=== PATIENT | male | born 1965 | race African-American/Black ===

== ENCOUNTER 2018-11-08 15:25 | Emergency (ER) | payer OTHER ==
[~2018-11-08] VITALS: Wt 97.1 kg
[~2018-11-08 15:25] MED LIST: CYCL5TAB PO; HYDR-3498 PO; IBUP-1542 PO
[2018-11-08 15:28] VITALS: BP 137/85; PULSE 70; RESP 19
[2018-11-08] MEDS ORDERED: DEXT1DRO6 OPHTHALMIC (16:38)
--- NOTE | 2018-11-08 18:31 | ERD ---
ER Documentation Chief Complaint Chief Complaint bib self, cc: right eye pain / pressure x 3 days, no trauma HPI 53-year-old male presents for right eye pain and pressure sensation times 3 days. Denies any trauma. No prior similar symptoms. He states his vision is intact. He does have a history of astigmatism and wears glasses. Denies any fevers or chills. ROS All systems reviewed and are negative except as per history of present illness. Medications Home Meds Active Scripts Dextran 70/Hypromellose (Artificial Tears) 1 Each Droperette, 1 EACH OPHTHALMIC TID PRN for irrigation, #1 BOTTLE Prov:DUEÑASHONORIO 11/08/18 Ibuprofen* (Motrin*) 600 Mg Tab, 600 MG PO Q6, #20 TAB Prov:MARIA C WATERMAN PA-C 03/23/16 Ibuprofen* (Ibuprofen*) 600 Mg Tablet, 600 MG PO Q6H PRN for PAIN, #30 TAB Prov:LLOYD HOWARD BONE CHAR KILN TENDER 06/21/15 Hydrocodone Bit-Acetaminophen* (Garner*) 5-325 Mg Tab, 1 TAB PO Q4H PRN for SEVERE PAIN LEVEL 7-10, #30 TAB Prov:LLOYD HOWARD BONE CHAR KILN TENDER 06/21/15 Cyclobenzaprine Hcl* (Cyclobenzaprine Hcl*) 5 Mg Tablet, 5 MG PO Q8H PRN for MUSCLE SPASMS, #21 TAB Prov:LLOYD HOWARD BONE CHAR KILN TENDER 06/21/15 Allergies Allergies: Coded Allergies: No Known Allergy (Unverified , 03/22/16) PMhx/Soc History of Surgery: No Anesthesia Reaction: No Hx Neurological Disorder: No Hx Respiratory Disorders: No Hx Cardiac Disorders: No Hx Psychiatric Problems: No Hx Miscellaneous Medical Probl: No Hx Alcohol Use: No Hx Substance Use: No Hx Tobacco Use: No Smoking Status: Never smoker Physical Exam Vitals Vital Signs Date Temp Pulse Resp B/P (MAP) Pulse Ox O2 O2 Flow FiO2 Time Delivery Rate 11/08/18 98.1 70 19 137/85 100 15:28 (102) Physical Exam Const: No acute distress Head: Atraumatic Eyes: Normal Conjunctiva, right eye lateral side small and shallow tissue noted ENT: Normal External Ears, Nose and Mouth. Neck: Full range of motion. No meningismus. Resp: Clear to auscultation bilaterally Cardio: Regular rate and rhythm, no murmurs Neur: Awake and alert Psych: Normal Mood and Affect Procedures/MDM Medical Decision Making: Differential diagnosis includes but not limited to pterygium, conjunctivitis, uveitis, iritis, glaucoma Patient appeared well on physical exam. Examination of the neck consistent with a pterygium. Patient given prescription for artificial tears. Advising you to follow with ophthalmology outpatient if symptoms do not resolve. Patient advised to follow up with PCP in 1-2 days. Patient advised to return to ED for new or worsening symptoms. Patient stable on discharge from the ED. Disclaimer: Inadvertent spelling and grammatical errors are likely due to [employer]/dictation software use and do not reflect on the overall quality of patient care. Also, please note that the electronic time recorded on this note does not necessarily reflect the actual time of the patient encounter. Departure Diagnosis: Primary Impression: Pterygium eye Condition: Fair Patient Instructions: Pterygium Referrals: [facility] YOU HAVE RECEIVED A MEDICAL SCREENING EXAM AND THE RESULTS INDICATE THAT YOU DO NOT HAVE A CONDITION THAT REQUIRES URGENT TREATMENT IN THE EMERGENCY DEPARTMENT. FURTHER EVALUATION AND TREATMENT OF YOUR CONDITION CAN WAIT UNTIL YOU ARE SEEN IN YOUR DOCTORS OFFICE WITHIN THE NEXT 1-2 DAYS. IT IS YOUR RESPONSIBILITY TO MAKE AN APPOINTMENT FOR FOLOW-UP CARE. IF YOU HAVE A PRIMARY DOCTOR --you should call your primary doctor and schedule an appointment IF YOU DO NOT HAVE A PRIMARY DOCTOR YOU CAN CALL OUR PHYSICIAN REFERRAL HOTLINE AT IF YOU CAN NOT AFFORD TO SEE A PHYSICIAN YOU CAN CHOSE FROM THE FOLLOWING [facility] [address] [facility] [address] [facility] [address] [facility]. [facility] [address] [facility] [address] [facility]. [facility]. [address] Additional Instructions: Call your primary care doctor TOMORROW for an appointment during the next 1-2 days.See the doctor sooner or return here if your condition worsens before your appointment time. HONORIO DUEÑAS DO Nov 08, 2018 18:31
== END 2018-11-08 17:15 | disposition home or self-care (01) ==
LOC: FTE 15:25
DX: H11.001 Unspecified pterygium of right eye (principal)
CPT/HCPCS: 99282

== ENCOUNTER 2018-12-27 23:22 | Emergency (ER) | payer OTHER ==
[~2018-12-27] VITALS: Ht 175.3 cm; Wt 74.5 kg
[~2018-12-27 23:22] MED LIST changes: +DEXT1DRO6 OPHTHALMIC
[2018-12-27 23:41] VITALS: Ht 175.3 cm; Wt 74.5 kg
[2018-12-28] MEDS ORDERED: ALBUTEROL 0.083% (NEB) 2.5 MG/3 ML AMP NEB STA (00:05)
--- NOTE | 2018-12-28 02:05 | ERD ---
ER Documentation Chief Complaint Chief Complaint SOB X TODAY HPI This is a 53-year-old male who presents to the ER for evaluation of shortness of breath. The patient states that he feels like it is hard for him to take a deep breath in. The patient denies any chest pain he denies any heart palpitations. He states that he is in the middle of getting a workup for headaches and double vision. The patient states that he does have an MRI which he got at this hospital which was normal. The patient denies any fevers or chills or nausea or vomiting. ROS All systems reviewed and are negative except as per history of present illness. Medications Home Meds Active Scripts Dextran 70/Hypromellose (Artificial Tears) 1 Each Droperette, 1 EACH OPHTHALMIC TID PRN for irrigation, #1 BOTTLE Prov:HONORIO DUEÑAS DO 11/08/18 Ibuprofen* (Motrin*) 600 Mg Tab, 600 MG PO Q6, #20 TAB Prov:MARIA C WATERMAN PA-C 03/23/16 Ibuprofen* (Ibuprofen*) 600 Mg Tablet, 600 MG PO Q6H PRN for PAIN, #30 TAB Prov:LLOYD HOWARD NP 06/21/15 Hydrocodone Bit-Acetaminophen* ([place]elo*) 5-325 Mg Tab, 1 TAB PO Q4H PRN for SEVERE PAIN LEVEL 7-10, #30 TAB Prov:LLOYD HOWARD NP 06/21/15 Cyclobenzaprine Hcl* (Cyclobenzaprine Hcl*) 5 Mg Tablet, 5 MG PO Q8H PRN for MUSCLE SPASMS, #21 TAB Prov:LLOYD HOWARD NP 06/21/15 Allergies Allergies: Coded Allergies: No Known Allergy (Unverified , 11/21/18) PMhx/Soc Medical and Surgical Hx: pt denies Medical Hx, pt denies Surgical Hx History of Surgery: No Anesthesia Reaction: No Hx Neurological Disorder: No Hx Respiratory Disorders: No Hx Cardiac Disorders: No Hx Psychiatric Problems: No Hx Miscellaneous Medical Probl: No Hx Alcohol Use: No Hx Substance Use: No Hx Tobacco Use: No Smoking Status: Never smoker Physical Exam Vitals Vital Signs Date Temp Pulse Resp B/P (MAP) Pulse Ox O2 O2 Flow FiO2 Time Delivery Rate 12/28/18 63 16 100 21 00:21 12/27/18 97.2 71 22 141/100 98 23:41 (114) Physical Exam INITIAL VITAL SIGNS: Reviewed by me GENERAL: The patient is well developed and appropriate for usual state of health in no apparent distress HEENT: Pupils equal, round, and reactive to light. EOMI. There is no scleral icterus. NECK: C-spine is soft and supple, there is no meningismus. There is no cervical lymphadenopathy. LUNGS: Clear to auscultation bilaterally. There are no rales, wheezes or rhonchi. HEART: Regular rate and rhythm, no murmurs, clicks, rubs or gallops. ABDOMEN: Soft, non-tender, non-distended. There are bowel sounds in all four quadrants. No rebound or guarding. EXTREMITIES: There is no peripheral cyanosis or edema. No focal swelling or erythema. NEUROLOGICAL: The patient moves all four extremities with 5/5 strength. Cranial nerves II - XII are intact. Normal gait. Alert and oriented SKIN: There is no apparent rash or petechiae. HEME/LYMPHATIC: There is no evidence of excessive bruising or lymphedema. PSYCHIATRIC: The patient appears anxious Result Diagram: 12/28/18 0002 12/28/18 0002 Results 24 hrs Laboratory Tests Test 12/28/18 00:02 White Blood Count 3.2 10^3/ul Red Blood Count 4.44 10^6/ul Hemoglobin 13.6 g/dl Hematocrit 39.4 % Mean Corpuscular Volume 88.7 fl Mean Corpuscular Hemoglobin 30.6 pg Mean Corpuscular Hemoglobin Concent 34.5 g/dl Red Cell Distribution Width 12.0 % Platelet Count 226 10^3/UL Mean Platelet Volume 10.5 fl Immature Granulocytes % 0.000 % Neutrophils % 31.2 % Lymphocytes % 55.8 % Monocytes % 9.3 % Eosinophils % 3.1 % Basophils % 0.6 % Nucleated Red Blood Cells % 0.0 /100WBC Immature Granulocytes # 0.000 10^3/ul Neutrophils # 1.0 10^3/ul Lymphocytes # 1.8 10^3/ul Monocytes # 0.3 10^3/ul Eosinophils # 0.1 10^3/ul Basophils # 0.0 10^3/ul Nucleated Red Blood Cells # 0.0 10^3/ul Sodium Level 141 mmol/L Potassium Level 3.6 mmol/L Chloride Level 101 mmol/L Carbon Dioxide Level 31 mmol/L Anion Gap 9 Blood Urea Nitrogen 16 mg/dl Creatinine 0.91 mg/dl Est Glomerular Filtrat Rate mL/min > 60 mL/min Glucose Level 89 mg/dl Calcium Level 9.4 mg/dl Troponin I 0.016 ng/ml B-Type Natriuretic Peptide 30 PG/ML Current Medications Medications Dose Sig/Sergei Start Time Status Last (Trade) Ordered Route PRN Stop Time Admin Dose Reason Admin Albuterol 5 mg ONCE STAT 12/28/18 DC 12/28/18 (Proventil NEB 00:05 00:21 0.083% (Neb)) 12/28/18 00:06 Procedures/MDM Chest X-ray 1V Interpreted by me: Soft Tissue: No acute abnormalities Bones: No acute abnormalities Mediastinum/Cardiac Silhouette/Lungs: Left lung granuloma EKG: Rate/Rhythm: [Normal Sinus Rhythm] QRS, ST, T-waves: [No changes consistent w/ acute ischemia] Impression: [No evidence of ischemia or arrhythmia] This 53-year-old male presents to the ER for evaluation of shortness of breath. On my exam the patient did appear anxious however his pulse ox is 100%. The patient was placed on a monitor. Lab work was obtained and EKG was obtained. His EKG shows normal sinus rhythm with no signs of ST elevation. Lab work is normal including a troponin. Chest x-ray does show a left lung granuloma. The patient was given a breathing treatment and on my reevaluation states he is feeling much better. The patient could have a component of anxiety to his symptoms and will be discharged at this time with strict return precautions. The patient does feel comfortable with her plan of care and I did advise him to continue following up with neurologist as an outpatient for his workup of diplopia. Departure Diagnosis: Primary Impression: Shortness of breath Additional Impression: Anxiety Condition: Stable ARLINEILIR HARRISMARIBETH BOYER Dec 28, 2018 02:05
[2018-12-28 02:50] VITALS: BP 141/100; PULSE 76; RESP 18
== END 2018-12-28 02:50 | disposition home or self-care (01) ==
LOC: E/R 23:22
DX: R06.02 Shortness of breath (principal); F41.9 Anxiety disorder, unspecified
CPT/HCPCS: 36415; 71045; 80048; 83880; 84484; 85025; 93005; 94664; Z7502; Z7610

== ENCOUNTER 2019-01-19 17:24 | Inpatient (IN) | payer OTHER ==
[~2019-01-19] VITALS: Ht 175.3 cm; Wt 64.4 kg
[~2019-01-19 17:24] MED LIST changes: -CYCL5TAB PO; -HYDR-3498 PO; -IBUP-1542 PO
[2019-01-19] MEDS ORDERED: SOD CHLORIDE 0.9% 1,000 ML IV STA (17:44)
[2019-01-19] MEDS ORDERED: PYRIDOSTIGMINE 10 MG IV ONE (18:00)
[2019-01-19] MEDS ORDERED: IMMUNE GLOBULIN (HUMAN) 6 GM INJ IV ONE (18:00)
[2019-01-19] MEDS ORDERED: LISI-313 PO (18:00)
[2019-01-19] MEDS ORDERED: PRED5TAB PO (18:02)
[2019-01-19] MEDS ORDERED: PRED20TA PO (18:02)
[2019-01-19] MEDS ORDERED: PYRI60TA9 PO (18:03)
[2019-01-19] MEDS ORDERED: LEVO112T57 PO (18:03)
[2019-01-19] MEDS ORDERED: AMLO-147 PO (18:04)
--- NOTE | 2019-01-19 18:46 | ERD ---
ER Documentation Chief Complaint Chief Complaint unable to swallow/eat for 2 days HX of Myasthenai HPI This is a 53-year-old male with a history of myasthenia gravis is been complaining of swallowing problems for the past several days is progressively getting worse. He is on day 3 of 5 IVIG infusions at home. He is also taking p irate's stick mean 60 mg. He says he is unable to swallow anything for the past 2 days and is having some decreased urine output. He has no respiratory difficulty or GI symptoms he feels generally weak and malaise. No headache no fever denies any dysuria. He is a relatively poor historian ROS All systems reviewed and are negative except as per history of present illness. Medications Home Meds Reported Medications Amlodipine Besylate* (Amlodipine Besylate*) 10 Mg Tablet, 10 MG PO DAILY, #30 TAB 01/19/19 Levothyroxine Sodium* (Levothyroxine Sodium*) 112 Mcg Tablet, 112 MCG PO BEFORE BREAKFAST, #30 TAB 01/19/19 Pyridostigmine Medusa* (Pyridostigmine Medusa*) 60 Mg Tablet, 90 MG PO QID, TAB 01/19/19 Prednisone* (Prednisone*) 20 Mg Tab, 20 MG PO DAILY, TAB 01/19/19 Prednisone* (Prednisone*) 5 Mg Tab, 5 MG PO DAILY, TAB PLEASE SEE ATTACHED FOR DETAILED DIRECTIONS 01/19/19 Lisinopril* (Lisinopril*) 5 Mg Tablet, 5 MG PO DAILY, #30 TAB 01/19/19 Discontinued Scripts Dextran 70/Hypromellose (Artificial Tears) 1 Each Droperette, 1 EACH OPHTHALMIC TID PRN for irrigation, #1 BOTTLE Prov:HONORIO DUEÑAS DO 11/08/18 Allergies Allergies: Coded Allergies: No Known Allergy (Unverified , 01/19/19) PMhx/Soc History of Surgery: No Anesthesia Reaction: No Hx Neurological Disorder: No Hx Respiratory Disorders: No Hx Cardiac Disorders: No Hx Psychiatric Problems: No Hx Miscellaneous Medical Probl: Yes (Myasthenia Gravis) Hx Alcohol Use: No Hx Substance Use: No Hx Tobacco Use: No Smoking Status: Never smoker FmHx Family History: No coronary disease Physical Exam Vitals Vital Signs Date Temp Pulse Resp B/P (MAP) Pulse Ox O2 O2 Flow FiO2 Time Delivery Rate 01/19/19 Nasal 2 18:00 Cannula 01/19/19 98.2 62 18 144/89 97 17:48 (107) 01/19/19 98.2 62 18 144/89 97 17:38 (107) Physical Exam Const: Well-developed, well-nourished, the patient is unable to swallow his saliva so he is spitting into a bag Head: Atraumatic, normocephalic Eyes: Normal Conjunctiva, PERRLA, EOMI, normal sclera, no nystagmus ENT: Normal External Ears, Nose and Mouth, moist mucus membranes. Neck: Full range of motion. No meningismus, no lymphadenopathy. Resp: Clear to auscultation bilaterally, no wheezing, rhonchi, rales Cardio: Regular rate and rhythm, no murmurs, S1 S2 present Abd: Soft, non tender x 4, non distended. Normal bowel sounds, no guarding or rebound, no pulsitile abdominal masses or bruits Skin: No petechiae or rashes, no ecchymosis , no maculopapular rash Back: No midline or flank tenderness Ext: No cyanosis, or edema, FROM x 4, normal inspection, neur ovascularly intact x 4 Neur: Awake and alert, STR 3-4/5 x 4, sensation intact x 4, no focal fi ndings, cerebellum intact Psych: Normal Mood and Affect Result Diagram: 01/19/19182101/19/191821 Results 24 hrs Laboratory Tests Test 01/19/19 18:22 White Blood Count 7.5 10^3/ul Red Blood Count 4.09 10^6/ul Hemoglobin 12.5 g/dl Hematocrit 36.2 % Mean Corpuscular Volume 88.5 fl Mean Corpuscular Hemoglobin 30.6 pg Mean Corpuscular Hemoglobin Concent 34.5 g/dl Red Cell Distribution Width 12.0 % Platelet Count 295 10^3/UL Mean Platelet Volume 10.0 fl Immature Granulocytes % 0.500 % Neutrophils % 73.8 % Lymphocytes % 19.3 % Monocytes % 6.2 % Eosinophils % 0.1 % Basophils % 0.1 % Nucleated Red Blood Cells % 0.0 /100WBC Immature Granulocytes # 0.040 10^3/ul Neutrophils # 5.5 10^3/ul Lymphocytes # 1.4 10^3/ul Monocytes # 0.5 10^3/ul Eosinophils # 0.0 10^3/ul Basophils # 0.0 10^3/ul Nucleated Red Blood Cells # 0.0 10^3/ul Sodium Level 141 mmol/L Potassium Level 3.7 mmol/L Chloride Level 104 mmol/L Carbon Dioxide Level 31 mmol/L Anion Gap 6 Blood Urea Nitrogen 27 mg/dl Creatinine 0.91 mg/dl Est Glomerular Filtrat Rate mL/min > 60 mL/min Glucose Level 129 mg/dl Calcium Level 9.9 mg/dl Total Bilirubin 0.7 mg/dl Direct Bilirubin 0.00 mg/dl Indirect Bilirubin 0.7 mg/dl Aspartate Amino Transf (AST/SGOT) 22 IU/L Alanine Aminotransferase (ALT/SGPT) 12 IU/L Alkaline Phosphatase 45 IU/L Total Protein 9.8 g/dl Albumin 4.4 g/dl Globulin 5.40 g/dl Albumin/Globulin Ratio 0.81 Current Medications Medications Dose Sig/Sergei Start Time Status Last (Trade) Ordered Route PRN Stop Time Admin Dose Reason Admin Sodium 1,000 ml @ Q1H STAT 01/19/19 DC 01/19/19 Chloride 1,000 mls/hr IV 17:44 01/19/19 18:27 18:43 Immune 150 gm NOW ONCE 01/19/19 DC Globulin IV 18:00 01/19/19 (Carimune Nf) 18:01 10 mg ONCE ONCE 01/19/19 DC Pyridostigmin IV 18:00 01/19/19 e Medusa 18:01 (Regonol) 60 mg ONCE ONCE 01/19/19 DC Pyridostigmin PO 19:00 01/19/19 e Medusa 19:01 (Mestinon) Procedures/MDM The patient started getting IVIG infusions over the past 3 days is continuing to worsen. For dose of pyridostigmine 60 mg p.o., do not feel he is having a cholinergic crisis she is not having any other other symptoms. The hospital only has 90 mg of IVIG in house. We do not have any IV pyridostigmine. Patient's not having any respiratory difficulty but he is unable to drink anything and we will need to admit him for myasthenia gravis exacerbation, IV hydration. Patient will probably need a higher level of care I have paged our neurologists and waiting call back. We do not have IVIG or intravenous pyridostigmine the patient will need to be monitored closely for respiratory failure, we do have oral tablets of pyridostigmine bromide he cannot swallow them Patient: ADIED : 1965 Age: 53 Sex: M MR #: [id number] DOS: 01/19/19 1744 Ordering MD: CELE OSORIO DO Location: E/R Room/Bed: PROCEDURE: XR Chest. CLINICAL INDICATION: Chest Pain. TECHNIQUE: Single frontal view of the chest COMPARISON: None FINDINGS: Left lung calcified granuloma again seen and unchanged. No new focal pulmonary consolidation. The heart and mediastinum are within normal limits. There is no pleural effusion or pneumothorax. Bones and soft tissues are unremarkable. IMPRESSION: No acute cardiac or pulmonary findings. RPTAT:HCLE prakash Crockett Physician Date Time Electronically viewed and signed by prakash Crockett, Physician on 01/19/2019 19:03 cE/ CC: CELE OSORIO DO [id number] Departure Diagnosis: Primary Impression: Myasthenia gravis with exacerbation Additional Impression: Swallowing disorder Condition: Fair CELE OSORIO DO Jan 19, 2019 18:46
[2019-01-19] MEDS ORDERED: PYRIDOSTIGMINE 60 MG TAB PO ONE (19:00)
--- NOTE | 2019-01-19 23:41 | EN ---
Date/Time of Note Date/Time of Note DATE: 01/19/19 TIME: 23:39 ER Progress Note Sign Out Note: Dr. Corea relayed current data and ongoing care with me. Time: Time of this note Observation time: 4 hours Diagnosis: Myasthenia gravis exacerbation Pending: Patient is awaiting transfer to another facility for higher level of care. The appropriate medications including IVIG and IV physostigmine are not available here. Patient cannot take any medications orally. I was told by Dr. Corea that the patient is stable and will need to be transferred for higher level of care. There were no events during my shift. Patient has not been accepted yet. Signed out to oncoming ED provider. GENA GRAYSON MD Jan 19, 2019 23:41
[2019-01-20] VITALS (24 sets, daily range): BP systolic 132–158; BP diastolic 63–112; PULSE 55–88; RESP 12–23; Ht 175.3 cm; Wt 64.4 kg
[2019-01-20] MEDS ORDERED: DEXAMETHASONE 10 MG/ML 1 ML INJ IV ONE (02:30)
[2019-01-20] MEDS ORDERED: PYRIDOSTIGMINE 60 MG TAB PO SCH ×3 (02:30→13:00)
[2019-01-20] MEDS ORDERED: NACL 0.9% 3 ML SYG IV SCH (02:30)
[2019-01-20] MEDS ORDERED: GLYCOPYRROLATE 1 MG TAB PO SCH ×2 (03:00→09:00)
[2019-01-20] MEDS ORDERED: GLYCOPYRROLATE 0.4 MG INJ IV ONE (04:00)
[2019-01-20] MEDS ORDERED: HYOSCYAMINE 0.125 MG SUBL TAB PO ONE (04:00)
[2019-01-20] MEDS: SOD CHLORIDE 0.9% 1,000 ML IV SCH ×2 (04:02→17:13)
[2019-01-20] MEDS ORDERED: PYRIDOSTIGMINE 10 MG IV SCH (04:30)
[2019-01-20] MEDS ORDERED: PYRIDOSTIGMINE 10 MG IV ONE (09:00)
--- NOTE | 2019-01-20 09:17 | HP ---
Date/Time of Note Date/Time of Note DATE: 01/20/19 TIME: 08:53 Assessment/Plan VTE Prophylaxis Risk score (from Nsg)>0 risk: 3 SCD applied (from Ns): Yes Pharmacological prophylaxis: NA/contraindicated Pharm contraindication: low risk/ambulating Lines/Catheters IV Catheter Type (from Nrs): Peripheral IV Assessment/Plan Hospital Course This is a 52-year-old male who was recently admitted to the telemetry floor but is now going to the ICU floor for: #1 myasthenic crisis: Patient at the current time is reporting facial weakness and numbness, he also reports some bilateral upper and lower extremity weakness but he is able at the current time to read without any difficulty. He does report difficulty with swallowing and secretions. He is using a Yankauer at the current time for secretions. Patient originally was going to be transferred for higher level of care as the pharmacy did not have the adequate medications IVIG and pyridostigmine on formulary, however given that he was having a lengthy stay in the emergency department they admitted the patient and requested the pharmacy to obtain the medications. I did speak to the pharmacist myself and they are obtaining IVIG and IV pyridostigmine this a.m. Given that the patient's vital capacity was 800 and he was having weakness I did move him to the ICU for closer close airway monitoring as patient is high risk for requiring intubation. He did receive steroids in the ED. Goal right now is to start the patient on IVIG. Plasmapheresis is also an option. As he has been having difficulty swallowing he has not been taking his Mestinon. And he did receive Decadron IV in the ED. -Close monitoring in the ICU, airway management -Vital capacity every 4 hours, consideration for intubation when vital capacity is less than 15-20 mL/kg which the patient is already below. -IV Robinul for secretions, patient did receive this and it did help him he states -IVIG as soon as possible when it is available, plasmapheresis would also be another consideration -Withhold Mestinon once patient receives IVIG- -neurology consultation Dr. Garcia, pulmonology consultation -Avoid medications that may worsen the myasthenia crisis. #2 hypothyroidism: We will check TSH, will put an equivalent IV dose of levothyr oxine #3 hypertension: PRN hydralazine #4 DVT GI prophylaxis: SCDs, Protonix Further treatment strategy will be implemented as per the clinical course Result Diagram: 01/19/19182101/19/19 1822 Results 24hrs Laboratory Tests Test 01/19/19 18:22 White Blood Count 7.5 # Red Blood Count 4.09 L Hemoglobin 12.5 L Hematocrit 36.2 L Mean Corpuscular Volume 88.5 Mean Corpuscular Hemoglobin 30.6 Mean Corpuscular Hemoglobin Concent 34.5 Red Cell Distribution Width 12.0 Platelet Count 295 # Mean Platelet Volume 10.0 Immature Granulocytes % 0.500 H Neutrophils % 73.8 Lymphocytes % 19.3 Monocytes % 6.2 Eosinophils % 0.1 Basophils % 0.1 Nucleated Red Blood Cells % 0.0 Immature Granulocytes # 0.040 H Neutrophils # 5.5 Lymphocytes # 1.4 Monocytes # 0.5 Eosinophils # 0.0 Basophils # 0.0 Nucleated Red Blood Cells # 0.0 Sodium Level 141 Potassium Level 3.7 Chloride Level 104 Carbon Dioxide Level 31 Anion Gap 6 Blood Urea Nitrogen 27 H Creatinine 0.91 Est Glomerular Filtrat Rate mL/min > 60 Glucose Level 129 Calcium Level 9.9 Total Bilirubin 0.7 Direct Bilirubin 0.00 Indirect Bilirubin 0.7 Aspartate Amino Transf (AST/SGOT) 22 Alanine Aminotransferase (ALT/SGPT) 12 L Alkaline Phosphatase 45 Total Protein 9.8 H Albumin 4.4 Globulin 5.40 H Albumin/Globulin Ratio 0.81 HPI/ROS Admit Date/Time Admit Date/Time Jan 20, 2019 at 02:09 Hx of Present Illness Chief complaint: Difficulty swallowing for the last several days. This is a 53-year-old male with a history of myasthenia gravis is been complaining of swallowing problems for the past several days is progressively getting worse. He is on day 3 of 5 IVIG infusions at home. He is also taking Mestinon 60 mg. He says he is unable to swallow anything for the past 2 days and is having some decreased urine output. He has no respiratory difficulty or GI symptoms he feels generally weak and malaise. No headache no fever denies any dysuria. Patient did remain in the emergency department and was given steroids, he was unable to swallow Mestinon. The emergency department was attempting to transfer the patient to higher level of care where he could receive IVIG as well as Mestinon as our pharmacy did not have it in stock. Overnight I was contacted by the ED physician who stated that the pharmacy was going to obtain IVIG and Mestinon for us. The ED physician deemed the patient stable to go to the telemetry floor. Upon my examination of the patient at the bedside I did order a vital capacity test which did show a vital capacity of approximately 800. Due to his low vital capacity and his ongoing secretions and feelings of weakness I made the decision to take the patient emergently to the ICU for closer monitoring and airway management in the setting of possible need for intubation. Patient reports that he was diagnosed with myasthenia gravis approximately 1 month ago at [facility]. He reports that he does take IVIG through home health nurse apparently. Patient reports that he only has myasthenia gravis as medical problems however he does have other medications listed on his EMR. Patient likely does appear to be a poor historian. Allergies: NKDA Medications: See MIKAEL HENDERSON Const: As per HPI Eyes : No pain discharge or redness or change in visual acuity ENT: As per HPI Respiratory: No shortness of breath, cough, sputum, wheezing, or pleuritic pain Cardiovascular: No chest pain, palpitation, PND, or edema GI : no change in appetite, abdominal pain, nausea, vomiting, diarrhea, constipation, or change in the color his stool Genitourinary: No dysuria, hematuria, flank pain , discharge or CVA tenderness Musculoskeletal: As per HPI Skin: No rash, bruising or hives Neuro: As per HPI Endocrine: No polyuria, polydipsia, temperature intolerance Psych: No hallucination, depression, anxiety or suicidal ideation PMH/Family/Social Past Medical History Myasthenia gravis, hypertension, hypothyroidism Medications Current Medications Sodium Chloride 1,000 ml @ 70 mls/hr [id number] IV Last administered on 01/20/19at 04:02; Admin Dose 70 MLS/HR; Start 01/20/19 at 02:22; Stop 01/21/19 at 02:21 IV Flush (NS 3 ml) 3 ml PER PROTOCOL IV ; Start 01/20/19 at 02:30 Pyridostigmine Flushing (Regonol) 10 mg ONCE ONCE IV ; Start 01/20/19 at 09:00; Stop 01/20/19 at 09:01 Glycopyrrolate (Robinul) 0.2 mg QID PRN IV SECRETIONS; Start 01/20/19 at 09:00; Status UNV Coded Allergies: No Known Allergy (Unverified , 01/19/19) Past Surgical History Past Surgical Hx: no surgical history Family History Significant Family History: no pertinent family hx Social History Alcohol Use: none Smoking Status: Never smoker Drug Use: none Exam/Review of Systems Vital Signs Vitals Vital Signs Date Temp Pulse Resp B/P (MAP) Pulse Ox O2 O2 Flow FiO2 Time Delivery Rate 01/20/19 97.4 83 23 150/111 100 Room Air 08:15 (124) 01/19/19 2 18:00 Exam Exam General: Patient is currently sitting upright in bed, his speech does appear to be muffled, he is producing oral secretions for which she is suctioning himself HEENT: Atraumatic, normocephalic. The pupils are equal, round and reactive. Extraocular motor are intact Neck: Supple with full range of motion. No rigidity or meningismus Chest: Nontender Lungs: Clear to auscultation bilaterally no crackles rales or wheezing, diminished chest rise Heart: Normal S1-S2, Regular rhythm and rate. No murmur, S3, or S4 Abdomen: Soft , nontender, nondistended , bowel sounds are present. No guarding no rebound tenderness , No masses or organomegaly. No costovertebral temporal angle mass Extremities: Normal to inspection, no edema no cyanosis Neurologic: Alert and oriented x3, speech is normal but it does appear to be muffled secondary to weakness of his facial muscles, he does appear to have mild weakness of his bilateral upper and lower extremities, but he is able to lift up his Yankauer for secretions. Additional Comments PROCEDURE: XR Chest. CLINICAL INDICATION: Chest Pain. TECHNIQUE: Single frontal view of the chest COMPARISON: None FINDINGS: Left lung calcified granuloma again seen and unchanged. No new focal pulmonary consolidation. The heart and mediastinum are within normal limits. There is no pleural effusion or pneumothorax. Bones and soft tissues are unremarkable. IMPRESSION: No acute cardiac or pulmonary findings. RPTAT:HCLE prakash Crockett Physician Date Time Electronically viewed and signed by prakash Crockett Physician on 01/19/2019 19:03 cE/ CC: CELE OSORIO DO [id number] RICARDO SIMMONS Jan 20, 2019 09:12
--- NOTE | 2019-01-20 10:50 | PN ---
Date/Time of Note Date/Time of Note DATE: 01/20/19 TIME: 10:50 Objective Vitals Vital Signs Date Temp Pulse Resp B/P (MAP) Pulse Ox O2 O2 Flow FiO2 Time Delivery Rate 01/20/19 97.4 83 23 150/111 100 Room Air 08:15 (124) 01/19/19 2 18:00 Results Result Diagram: 01/19/19 1822 01/19/19 1822 Medications Medications Current Medications Sodium Chloride 1,000 ml @ 70 mls/hr [id number] IV Last administered on 01/20/19at 04:02; Admin Dose 70 MLS/HR; Start 01/20/19 at 02:22; Stop 01/21/19 at 02:21 IV Flush (NS 3 ml) 3 ml PER PROTOCOL IV ; Start 01/20/19 at 02:30 Glycopyrrolate (Robinul) 0.2 mg QID PRN IV SECRETIONS; Start 01/20/19 at 09:00 Levothyroxine Sodium (Synthroid Iv) 56 mcg DAILY IV ; Start 01/20/19 at 09:30 Famotidine (Pepcid Iv) 20 mg BID IV ; Start 01/20/19 at 10:30 VTE Prophylaxis Risk score (from [facility] [place])>0 risk: 3 SCD applied (from [facility] [place]): Yes Lines/Catheters IV Catheter Type: Ordonez in Place: No Assessment/Plan Hospital Course Subjective Patient feeling much better than when he first came in yesterday however still having some overall weakness Objective Physical exam General: Patient is laying in bed and answers questions appropriately Mentation: Patient is alert and oriented 4, Head: Normocephalic atraumatic Eyes: EOMI, pupils reactive to light Neck: Supple, nontender, midline Respiratory: Clear to auscultation bilaterally Cardiovascular: regular rate, no obvious murmurs Gastrointestinal: non-tender to palpation, bowel sounds heard. Neurological: Moves all extremities spontaneously, muscle strength is 5 out of 5 all extremities Skin: No new skin lesions Assessment and plan Myasthenic crisis -Drastic improvement of symptoms however patient still reporting waxing and waning of symptoms -Continue IVIG -Neurology consulted, discussed with neurology, will and they will assess the p atient's medications and restart appropriate ones, continue IVIG for now, no end date as of right now -Patient outpatient on steroids, Mestinon, CellCept, now off omeprazole due to interaction with CellCept, continue IV famotidine, will defer to neurology to restart medications. Hypothyroidism -Continue levothyroxine Hypertension -Treat as needed, restart home meds when able Disposition -Over 40 minutes of critical care time was spent on this ICU encounter -Speech therapy evaluation, okay to start clears if passes speech eval, however keep in ICU as patient could rapidly decompensated any moment. LORRAINE WATERMAN Jan 20, 2019 10:50
--- NOTE | 2019-01-20 11:07 | CONS ---
Assessment/Plan Assessment/Plan Assessment/Plan (Daily) Chest x-ray is totally clear. Assessment and recommendations; 1. Patient admitted for myasthenia crisis with interval improvement on current treatment regimen. 2. [facility]. Continue current supportive care. Consultation Date/Type/Reason Admit Date/Time Jan 20, 2019 at 02:09 Date of Consultation: Jan 20, 2019 Type of Consult Pulmonary/critical care Patient is a pleasant 53-year-old male who came into the hospital with complaints of weakness and shortness of breath. Patient does have history of myasthenia gravis diagnosed about a month ago patient also had low vital capacity and was admitted to ICU and started on immunoglobulin as well as pyridostigmine with significant improvement in symptoms. By the time I saw him, patient sitting in a chair at bedside and denies any shortness of breath, any coughing, wheezing, sputum production. Past medical history; 1. History of myasthenia gravis diagnosed recently about a month ago. No history of any thymectomy. 2. History of hypothyroidism and hypertension. Medications; reviewed. Allergies; none. Social history; noncontributory. Family history; noncontributory. Occupational history; patient is disabled. Review of systems; denies any headache, visual changes, seizures. Shortness of breath is improving. Complains of minimal chest congestion. Denies any abdominal pain, complains of mild dysphagia. Denies any nausea vomiting, any fever chills, any urinary symptoms. Any edema orthopnea. General exam; middle-aged male, awake alert, currently in no distress. Reason for Consultation H EENT exam; supple neck, no JVD. No lymphadenopathy. Midline trachea. No thyromegaly. Patient has fair dentition. No neck masses. Chest exam; diminished but clear breath sounds. S1-S2 audible, no murmurs. Regular rhythm. Abdomen exam; soft, nontender. No organomegaly. Bowel sounds audible. Extremity exam; no peripheral edema clubbing. ROLLER SKATER exam; no focal deficit. Date/Time of Note DATE: 01/20/19 TIME: 11:02 Past Medical History Home Meds Reported Medications Amlodipine Besylate* (Amlodipine Besylate*) 10 Mg Tablet, 10 MG PO DAILY, #30 TAB 01/19/19 Levothyroxine Sodium* (Levothyroxine Sodium*) 112 Mcg Tablet, 112 MCG PO BEFORE BREAKFAST, #30 TAB 01/19/19 Pyridostigmine [place]* (Pyridostigmine [place]*) 60 Mg Tablet, 90 MG PO QID, TAB 01/19/19 Prednisone* (Prednisone*) 20 Mg Tab, 20 MG PO DAILY, TAB 01/19/19 Prednisone* (Prednisone*) 5 Mg Tab, 5 MG PO DAILY, TAB PLEASE SEE ATTACHED FOR DETAILED DIRECTIONS 01/19/19 Lisinopril* (Lisinopril*) 5 Mg Tablet, 5 MG PO DAILY, #30 TAB 01/19/19 Discontinued Scripts Dextran 70/Hypromellose (Artificial Tears) 1 Each Droperette, 1 EACH OPHTHALMIC TID PRN for irrigation, #1 BOTTLE Prov:HONORIO DUEÑAS DO 11/08/18 Medications Current Medications Sodium Chloride 1,000 ml @ 70 mls/hr [id number] IV Last administered on 01/20/19at 04:02; Admin Dose 70 MLS/HR; Start 01/20/19 at 02:22; Stop 01/21/19 at 02:21 IV Flush (NS 3 ml) 3 ml PER PROTOCOL IV ; Start 01/20/19 at 02:30 Glycopyrrolate (Robinul) 0.2 mg QID PRN IV SECRETIONS; Start 01/20/19 at 09:00 Levothyroxine Sodium (Synthroid Iv) 56 mcg DAILY IV ; Start 01/20/19 at 09:30 Famotidine (Pepcid Iv) 20 mg BID IV ; Start 01/20/19 at 10:30 Allergies: Coded Allergies: No Known Allergy (Unverified , 01/19/19) Past Surgical History Past Surgical Hx: no surgical history Social History Alcohol Use: none Smoking Status: Never smoker Drug Use: none Exam/Review of Systems Exam Vitals Vital Signs Date Temp Pulse Resp B/P (MAP) Pulse Ox O2 O2 Flow FiO2 Time Delivery Rate 01/20/19 97.4 83 23 150/111 100 Room Air 08:15 (124) 01/19/19 2 18:00 Results Result Diagram: 01/19/19 1822 01/19/19 1822 Results 24hrs Laboratory Tests Test 01/19/19 18:22 01/20/19 09:37 White Blood Count 7.5 # Red Blood Count 4.09 L Hemoglobin 12.5 L Hematocrit 36.2 L Mean Corpuscular Volume 88.5 Mean Corpuscular Hemoglobin 30.6 Mean Corpuscular Hemoglobin Concent 34.5 Red Cell Distribution Width 12.0 Platelet Count 295 # Mean Platelet Volume 10.0 Immature Granulocytes % 0.500 H Neutrophils % 73.8 Lymphocytes % 19.3 Monocytes % 6.2 Eosinophils % 0.1 Basophils % 0.1 Nucleated Red Blood Cells % 0.0 Immature Granulocytes # 0.040 H Neutrophils # 5.5 Lymphocytes # 1.4 Monocytes # 0.5 Eosinophils # 0.0 Basophils # 0.0 Nucleated Red Blood Cells # 0.0 Sodium Level 141 Potassium Level 3.7 Chloride Level 104 Carbon Dioxide Level 31 Anion Gap 6 Blood Urea Nitrogen 27 H Creatinine 0.91 Est Glomerular Filtrat Rate mL/min > 60 Glucose Level 129 Calcium Level 9.9 Total Bilirubin 0.7 Direct Bilirubin 0.00 Indirect Bilirubin 0.7 Aspartate Amino Transf (AST/SGOT) 22 Alanine Aminotransferase (ALT/SGPT) 12 L Alkaline Phosphatase 45 Total Protein 9.8 H Albumin 4.4 Globulin 5.40 H Albumin/Globulin Ratio 0.81 Ethyl Alcohol Level < 10.0 H Medications Medication Current Medications Sodium Chloride 1,000 ml @ 70 mls/hr [id number] IV Last administered on 01/20/19at 04:02; Admin Dose 70 MLS/HR; Start 01/20/19 at 02:22; Stop 01/21/19 at 02:21 IV Flush (NS 3 ml) 3 ml PER PROTOCOL IV ; Start 01/20/19 at 02:30 Glycopyrrolate (Robinul) 0.2 mg QID PRN IV SECRETIONS; Start 01/20/19 at 09:00 Levothyroxine Sodium (Synthroid Iv) 56 mcg DAILY IV ; Start 01/20/19 at 09:30 Famotidine (Pepcid Iv) 20 mg BID IV ; Start 01/20/19 at 10:30 JOSE JUAN WELLS Jan 20, 2019 11:07
[2019-01-20] MEDS ORDERED: IMMUN GLOB 10% IV SCH (12:00)
[2019-01-20] MEDS: FAMOTIDINE 20 MG INJ IV SCH ×2 (12:16→20:58)
[2019-01-20] MEDS: LEVOTHYROXINE 100 MCG VIAL IV SCH (12:17)
--- NOTE | 2019-01-20 12:32 | CONS ---
Consultation Date/Type/Reason Admit Date/Time Jan 20, 2019 at 02:09 Type of Consult Neurology Date/Time of Note DATE: 01/20/19 TIME: 12:31 Exam Vital Signs Vitals Vital Signs Date Temp Pulse Resp B/P (MAP) Pulse Ox O2 O2 Flow FiO2 Time Delivery Rate 01/20/19 97.6 64 15 143/97 100 Room Air 12:00 (112) 01/19/19 2 18:00 REAGAN DOWNS STATEMENT CLERK Jan 20, 2019 12:31
[2019-01-20] MEDS: [UNRECOGNIZED DRUG - MIXTURE] IVPB SCH (12:33)
--- NOTE | 2019-01-20 12:58 | CONS ---
Assessment/Plan Assessment/Plan Hospital Course 53 M w/ recently diagnosed Myasthenia Gravis...who presents for evaluation of dysphagia, dysarthria, and other weakness...for which neurology is consulted. He was notably prescribed IVIG at home x days, and an increased dose of Mestinon in recent days...for management of the same....but has clinically worsened.... The clinical picture is consistent w/ myasthenia gravis exacerbation. A focal ZINC FURNACE CHARGER process, is, though, not yet excluded.. P: Clarify ACHR status when able Head CT to exclude acute intracranial pathology when able OK to continue IVIG to goal 2g/kg over 5 days for now Change Mestinon to 2mg iv q3h for now Continue Prednisone 20mg daily for now OK to Hold Cellcept for now Cont VC/NIF q4h for now Supportive care per primary Will follow clinically Consultation Date/Type/Reason Admit Date/Time Jan 20, 2019 at 02:09 Type of Consult Neurology Reason for Consultation myasthenia gravis Requesting Provider: RICARDO SIMMONS Date/Time of Note DATE: 01/20/19 TIME: 12:41 Hx of Present Illness This is a 53-year-old male with a history of myasthenia gravis is been complaining of swallowing problems for the past several days is progressively getting worse. He is on day 3 of 5 IVIG infusions at home. He is also taking Mestinon 60 mg. He says he is unable to swallow anything for the past 2 days and is having some decreased urine output. He has no respiratory difficulty or GI symptoms he feels generally weak and malaise. No headache no fever denies any dysuria. Patient did remain in the emergency department and was given stero ids, he was unable to swallow Mestinon. The emergency department was attempting to transfer the patient to higher level of care where he could receive IVIG as well as Mestinon as our pharmacy did not have it in stock. Overnight I was contacted by the ED physician who stated that the pharmacy was going to obtain IVIG and Mestinon for us. The ED physician deemed the patient stable to go to the telemetry floor. Upon my examination of the patient at the bedside I did order a vital capacity test which did show a vital capacity of approximately 800. Due to his low vital capacity and his ongoing secretions and feelings of weakness I made the decision to take the patient emergently to the ICU for closer monitoring and airway management in the setting of possible need for intubation. Patient reports that he was diagnosed with myasthenia gravis approximately 1 month ago at [facility]. He reports that he does take IVIG through home health nurse apparently. Patient reports that he only has myasthenia gravis as medical problems however he does have other medications listed on his EMR. Patient likely does appear to be a poor historian. Allergies: NKDA 12 PT ros negative, except as noted in hpi Exam/Review of Systems Exam Vitals Vital Signs Date Temp Pulse Resp B/P (MAP) Pulse Ox O2 O2 Flow FiO2 Time Delivery Rate 01/20/19 97.6 64 15 143/97 100 Room Air 12:00 (112) 01/19/19 2 18:00 Exam PE: Gen Appearance: No Apparent Distress HEENT: Normocephalic Cardiovascular: Regular rate Lungs: Clear bilaterally Abdomen: Soft Extremities: Dry NE: The patient was alert and oriented. Speech was dysarthric. Fund of knowledge was normal. Pupils were equal and reactive to light. There was no afferent pupillary defect. Visual miranda were normal. Funduscopic examination was limited. Extra-ocular movements were full. Ptosis was absent. There was no nystagmus. Facial sensation was normal. Face was symmetric with normal strength. Hearing was intact. Palate movements were normal. Neck strength was normal. There was normal tongue bulk and speed of movement. Tone was normal. Muscle bulk was normal. I did not see fasciculations. Arms were weak to confrontation and legs were strong. Vibration sensation was normal. Temperature and pinprick sensation was normal. Rapid alternating movements were normal. There was no dysmetria. There was no intention tremor. Gait was deferred due to bedrest. Arm reflexes were 2+ and symmetric; leg reflexes were brisk bilaterally. Bauer's sign was absent. Plantar responses were flexor. Results Result Diagram: 01/19/19 1822 01/19/19 1822 Results 24hrs Laboratory Tests Test 01/19/19 18:22 01/20/19 09:37 White Blood Count 7.5 # Red Blood Count 4.09 L Hemoglobin 12.5 L Hematocrit 36.2 L Mean Corpuscular Volume 88.5 Mean Corpuscular Hemoglobin 30.6 Mean Corpuscular Hemoglobin Concent 34.5 Red Cell Distribution Width 12.0 Platelet Count 295 # Mean Platelet Volume 10.0 Immature Granulocytes % 0.500 H Neutrophils % 73.8 Lymphocytes % 19.3 Monocytes % 6.2 Eosinophils % 0.1 Basophils % 0.1 Nucleated Red Blood Cells % 0.0 Immature Granulocytes # 0.040 H Neutrophils # 5.5 Lymphocytes # 1.4 Monocytes # 0.5 Eosinophils # 0.0 Basophils # 0.0 Nucleated Red Blood Cells # 0.0 Sodium Level 141 Potassium Level 3.7 Chloride Level 104 Carbon Dioxide Level 31 Anion Gap 6 Blood Urea Nitrogen 27 H Creatinine 0.91 Est Glomerular Filtrat Rate mL/min > 60 Glucose Level 129 Calcium Level 9.9 Total Bilirubin 0.7 Direct Bilirubin 0.00 Indirect Bilirubin 0.7 Aspartate Amino Transf (AST/SGOT) 22 Alanine Aminotransferase (ALT/SGPT) 12 L Alkaline Phosphatase 45 Total Protein 9.8 H Albumin 4.4 Globulin 5.40 H Albumin/Globulin Ratio 0.81 Ethyl Alcohol Level < 10.0 H Medications Medication Current Medications Sodium Chloride 1,000 ml @ 70 mls/hr [id number] IV Last administered on 01/20/19at 04:02; Admin Dose 70 MLS/HR; Start 01/20/19 at 02:22; Stop 01/21/19 at 02:21 IV Flush (NS 3 ml) 3 ml PER PROTOCOL IV ; Start 01/20/19 at 02:30 Glycopyrrolate (Robinul) 0.2 mg QID PRN IV SECRETIONS; Start 01/20/19 at 09:00 Levothyroxine Sodium (Synthroid Iv) 56 mcg DAILY IV Last administered on 01/20/19at 12:17; Admin Dose 56 MCG; Start 01/20/19 at 09:30 Famotidine (Pepcid Iv) 20 mg BID IV Last administered on 01/20/19at 12:16; Admin Dose 20 MG; Start 01/20/19 at 10:30 Past Medical History reviewed Home Meds Reported Medications Amlodipine Besylate* (Amlodipine Besylate*) 10 Mg Tablet, 10 MG PO DAILY, #30 TAB 01/19/19 Levothyroxine Sodium* (Levothyroxine Sodium*) 112 Mcg Tablet, 112 MCG PO BEFORE BREAKFAST, #30 TAB 01/19/19 Pyridostigmine [place]* (Pyridostigmine [place]*) 60 Mg Tablet, 90 MG PO QID, TAB 01/19/19 Prednisone* (Prednisone*) 20 Mg Tab, 20 MG PO DAILY, TAB 01/19/19 Prednisone* (Prednisone*) 5 Mg Tab, 5 MG PO DAILY, TAB PLEASE SEE ATTACHED FOR DETAILED DIRECTIONS 01/19/19 Lisinopril* (Lisinopril*) 5 Mg Tablet, 5 MG PO DAILY, #30 TAB 01/19/19 Discontinued Scripts Dextran 70/Hypromellose (Artificial Tears) 1 Each Droperette, 1 EACH OPHTHALMIC TID PRN for irrigation, #1 BOTTLE Prov:HONORIO DUEÑAS DO 11/08/18 Medications Current Medications Sodium Chloride 1,000 ml @ 70 mls/hr [id number] IV Last administered on 01/20/19at 04:02; Admin Dose 70 MLS/HR; Start 01/20/19 at 02:22; Stop 01/21/19 at 02:21 IV Flush (NS 3 ml) 3 ml PER PROTOCOL IV ; Start 01/20/19 at 02:30 Glycopyrrolate (Robinul) 0.2 mg QID PRN IV SECRETIONS; Start 01/20/19 at 09:00 Levothyroxine Sodium (Synthroid Iv) 56 mcg DAILY IV Last administered on 01/20/19at 12:17; Admin Dose 56 MCG; Start 01/20/19 at 09:30 Famotidine (Pepcid Iv) 20 mg BID IV Last administered on 01/20/19at 12:16; Admin Dose 20 MG; Start 01/20/19 at 10:30 Allergies: Coded Allergies: No Known Allergy (Unverified , 01/19/19) Past Surgical History Past Surgical Hx: no surgical history Social History Alcohol Use: none Smoking Status: Never smoker Drug Use: none JOESPH LLAMAS Jan 20, 2019 12:57 REAGAN DOWNS NP Jan 20, 2019 14:17
[2019-01-20] MEDS: GLYCOPYRROLATE 0.4 MG INJ IV PRN (18:20)
[2019-01-20] MEDS: PYRIDOSTIGMINE 10 MG IV SCH ×2 (18:40→20:58)
[2019-01-21] VITALS (42 sets, daily range): BP systolic 104–179; BP diastolic 63–130; PULSE 54–158; RESP 13–37
[2019-01-21] MEDS: PYRIDOSTIGMINE 10 MG IV SCH ×9 (00:23→23:59)
[2019-01-21] MEDS ORDERED: SOD CHLORIDE 0.9% 1,000 ML IV SCH (05:00)
[2019-01-21] MEDS: FAMOTIDINE 20 MG INJ IV SCH ×2 (08:34→20:48)
[2019-01-21] MEDS: LEVOTHYROXINE 100 MCG VIAL IV SCH (08:38)
[2019-01-21] MEDS ORDERED: predniSONE 20 MG TAB PO SCH (09:00)
--- NOTE | 2019-01-21 10:01 | CONS ---
Assessment/Plan Assessment/Plan Assessment/Plan (Daily) Assessment and recommendations; 1. Patient admitted with myasthenia gravis crisis with significant interval improvement. On pyridostigmine and intravenous immunoglobulin. 2. Patient not exhibiting any signs of respiratory compromise. 3. History of hypothyroidism. Continue current supportive care. Further recommendations per neurologist. Consultation Date/Type/Reason Admit Date/Time Jan 20, 2019 at 02:09 Initial Consult Date 01/20/19 Type of Consult Pulmonary/critical care Patient is a pleasant 53-year-old male who came into the hospital with complaints of weakness and shortness of breath. Patient does have history of myasthenia gravis diagnosed about a month ago patient also had low vital capacity and was admitted to ICU and started on immunoglobulin as well as pyridostigmine with significant improvement in symptoms. By the time I saw him, patient sitting in a chair at bedside and denies any shortness of breath, any coughing, wheezing, sputum production. Past medical history; 1. History of myasthenia gravis diagnosed recently about a month ago. No history of any thymectomy. 2. History of hypothyroidism and hypertension. Medications; reviewed. Allergies; none. Social history; noncontributory. Family history; noncontributory. Occupational history; patient is disabled. Review of systems; denies any headache, visual changes, seizures. Shortness of breath is improving. Complains of minimal chest congestion. Denies any abdominal pain, complains of mild dysphagia. Denies any nausea vomiting, any fever chills, any urinary symptoms. Any edema orthopnea. General exam; middle-aged male, awake alert, currently in no distress. Requesting Provider: RICARDO SIMMONS Date/Time of Note DATE: 01/21/19 TIME: 09:59 24 HR Interval Summary Free Text/Dictation Patient's condition is stable. Denies any shortness of breath. General exam; middle-aged male, awake alert, currently no distress. Exam/Review of Systems Exam Vitals Vital Signs Date Temp Pulse Resp B/P (MAP) Pulse Ox O2 O2 Flow FiO2 Time Delivery Rate 01/21/19 97.6 08:25 01/21/19 86 20 104/87 94 Room Air 08:00 (93) 01/19/19 2 18:00 Intake and Output 01/20/19 01/20/19 01/21/19 1515:00 23:00 07:00 IntakeIntake Total 765.2 ml 395.2 ml 0 ml OutputOutput Total 500 ml 900 ml BalanceBalance 765.2 ml -104.8 ml -900 ml Exam H EENT exam; supple neck, no JVD. No lymphadenopathy. Midline trachea. No thyromegaly. Pharynx is clear. Patient has good dentition. No neck masses. Chest exam; clear to auscultation. With good excursion of chest wall. S1-S2 audible, no murmurs. Regular rhythm. Abdomen exam; soft, no organomegaly. Bowel sounds audible. Extremity exam; no peripheral edema or clubbing. [employer]ICER exam; no focal deficit. Results Result Diagram: 01/21/19 0438 01/21/19 043 Results 24hrs Laboratory Tests Test 01/20/19 14:00 01/21/19 04:38 Urine Opiates Screen Negative Urine Barbiturates Negative Urine Amphetamines Screen Negative Urine Benzodiazepines Screen Negative Urine Cocaine Screen Negative Urine Cannabinoids Negative White Blood Count 6.1 Red Blood Count 4.32 L Hemoglobin 13.1 L Hematocrit 39.0 L Mean Corpuscular Volume 90.3 Mean Corpuscular Hemoglobin 30.3 Mean Corpuscular Hemoglobin Concent 33.6 Red Cell Distribution Width 11.9 Platelet Count 291 Mean Platelet Volume 10.1 Immature Granulocytes % 0.200 Neutrophils % 60.5 Lymphocytes % 31.0 Monocytes % 8.0 Eosinophils % 0.3 Basophils % 0.0 Nucleated Red Blood Cells % 0.0 Immature Granulocytes # 0.010 Neutrophils # 3.7 Lymphocytes # 1.9 Monocytes # 0.5 Eosinophils # 0.0 Basophils # 0.0 Nucleated Red Blood Cells # 0.0 Sodium Level 141 Potassium Level 3.4 L Chloride Level 105 Carbon Dioxide Level 31 Anion Gap 5 Blood Urea Nitrogen 21 H Creatinine 0.76 Est Glomerular Filtrat Rate mL/min > 60 Glucose Level 92 Calcium Level 9.4 Phosphorus Level 4.1 Magnesium Level 2.0 Medications Medication Current Medications IV Flush (NS 3 ml) 3 ml PER PROTOCOL IV ; Start 01/20/19 at 02:30 Glycopyrrolate (Robinul) 0.2 mg QID PRN IV SECRETIONS Last administered on 01/20/19at 18:20; Admin Dose 0.2 MG; Start 01/20/19 at 09:00 Levothyroxine Sodium (Synthroid Iv) 56 mcg DAILY IV Last administered on 01/21/19at 08:38; Admin Dose 56 MCG; Start 01/20/19 at 09:30 Famotidine (Pepcid Iv) 20 mg BID IV Last administered on 01/21/19at 08:34; Admin Dose 20 MG; Start 01/20/19 at 10:30 Prednisone (Prednisone) 20 mg DAILY PO ; Start 01/21/19 at 09:00 Pyridostigmine [place] (Regonol) 2 mg Q3 IV Last administered on 01/21/19at 08:43; Admin Dose 2 MG; Start 01/20/19 at 18:00 Potassium Chloride/Dextrose/ Sod Cl 1,000 ml @ 100 mls/hr Q10H IV ; Start 01/21/19 at 10:30 JOSE JUAN WELLS Jan 21, 2019 10:01
--- NOTE | 2019-01-21 10:32 | CONS ---
Assessment/Plan Assessment/Plan Hospital Course 53 M w/ recently diagnosed Myasthenia Gravis...who presents for evaluation of dysphagia, dysarthria, and other weakness...for which neurology is consulted. He was notably prescribed IVIG at home x days, and an increased dose of Mestinon in recent days...for management of the same....but has clinically worsened.... As well, he received 10mg iv pyridostigmine x 2 and 10mg iv decadron x 1 upon arrival to [facility] on 01/19....which are likely contributors to continued clinical decline.. The clinical picture is consistent w/ myasthenia gravis exacerbation. Head CT is without acute intracranial pathology. P: Continue IVIG to goal 2g/kg over 5 days To consider initiation of Plasmapheresis following the above. should Sx continue to progress Continue Mestinon 2mg iv q3h for now OK to continue Prednisone 20mg daily for now OK to Hold Cellcept for now Cont VC/NIF q4h for now Supportive care per primary Will follow clinically Consultation Date/Type/Reason Admit Date/Time Jan 20, 2019 at 02:09 Type of Consult Neurology Reason for Consultation myasthenia gravis Requesting Provider: RICARDO SIMMONS Date/Time of Note DATE: 01/21/19 TIME: 10:28 24 HR Interval Summary Free Text/Dictation Reports continued dysarthria. His outpatient neurologist was unable to be reached for further questions at this time. Exam Vital Signs Vitals Vital Signs Date Temp Pulse Resp B/P (MAP) Pulse Ox O2 O2 Flow FiO2 Time Delivery Rate 01/21/19 97.6 08:25 01/21/19 86 20 104/87 94 Room Air 08:00 (93) 01/19/19 2 18:00 Intake and Output 01/20/19 01/20/19 01/21/19 1515:00 23:00 07:00 IntakeIntake Total 765.2 ml 395.2 ml 0 ml OutputOutput Total 500 ml 900 ml BalanceBalance 765.2 ml -104.8 ml -900 ml Exam PE: Gen Appearance: No Apparent Distress HEENT: Normocephalic Cardiovascular: Regular rate Lungs: Clear bilaterally Abdomen: Soft Extremities: Dry NE: The patient was alert and oriented. Speech was severely dysarthric. Fund of knowledge was normal. Pupils were equal and reactive to light. There was no afferent pupillary defect. Visual miranda were normal. Funduscopic examination was limited. Extra-ocular movements were full. Ptosis was absent. There was no nystagmus. Facial sensation was normal. Face was symmetric with normal strength. Hearing was intact. Palate movements were normal. Neck strength was normal. There was normal tongue bulk and speed of movement. Tone was normal. Muscle bulk was normal. I did not see fasciculations. Arms were mildly weak, symmetrically; and legs were strong. Vibration sensation was normal. Temperature and pinprick sensation was normal. Rapid alternating movements were normal. There was no dysmetria. There was no intention tremor. Gait was deferred due to bedrest. Arm reflexes were 2+ and symmetric; leg reflexes were brisk bilaterally. Bauer's sign was absent. Plantar responses were flexor. JOESPH LLAMAS Jan 21, 2019 10:32 REAGAN DOWNS NP Jan 21, 2019 14:09
[2019-01-21] MEDS: D5-0.2 NACL + KCL 20 MEQ 1,000 ML IV SCH ×2 (11:36→20:48)
[2019-01-21] MEDS: [UNRECOGNIZED DRUG - MIXTURE] IVPB SCH (12:00)
--- NOTE | 2019-01-21 15:46 | PN ---
Date/Time of Note Date/Time of Note DATE: 01/21/19 TIME: 15:41 Objective Vitals Vital Signs Date Temp Pulse Resp B/P (MAP) Pulse Ox O2 O2 Flow FiO2 Time Delivery Rate 01/21/19 80 21 131/92 96 13:00 (105) 01/21/19 98.5 12:00 01/21/19 Room Air 08:00 01/19/19 2 18:00 Intake and Output 01/20/19 01/20/19 01/21/19 1515:00 23:00 07:00 IntakeIntake Total 765.2 ml 395.2 ml 0 ml OutputOutput Total 500 ml 900 ml BalanceBalance 765.2 ml -104.8 ml -900 ml Results Result Diagram: 01/21/19 0438 01/21/19 0438 Medications Medications Current Medications IV Flush (NS 3 ml) 3 ml PER PROTOCOL IV ; Start 01/20/19 at 02:30 Glycopyrrolate (Robinul) 0.2 mg QID PRN IV SECRETIONS Last administered on 01/20/19at 18:20; Admin Dose 0.2 MG; Start 01/20/19 at 09:00 Levothyroxine Sodium (Synthroid Iv) 56 mcg DAILY IV Last administered on 01/21/19 08:38; Admin Dose 56 MCG; Start 01/20/19 at 09:30 Famotidine (Pepcid Iv) 20 mg BID IV Last administered on 01/21/19 08:34; Admin Dose 20 MG; Start 01/20/19 at 10:30 Pyridostigmine [place] (Regonol) 2 mg Q3 IV Last administered on 01/21/19at 11:37; Admin Dose 2 MG; Start 01/20/19 at 18:00 Potassium Chloride/Dextrose/ Sod Cl 1,000 ml @ 100 mls/hr Q10H IV Last administered on 01/21/19 11:36; Admin Dose 100 MLS/HR; Start 01/21/19 at 10:30 Methylprednisolone Sodium Succinate (Solu-Medrol) 20 mg DAILY IV ; Start 01/21/19 at 13:00 VTE Prophylaxis Risk score (from Ns)>0 risk: 1 SCD applied (from Ns): No SCD contraindication: other Lines/Catheters IV Catheter Type: Ordonez in Place: No Assessment/Plan Hospital Course Subjective Patient symptoms have worsened, now barely able to speak, fairly unable to swallow, still breathing without assistance, able to ambulate however Objective Physical exam General: Patient is laying in bed and answers questions appropriately but very slowly Mentation: Patient is alert and oriented 4, Head: Normocephalic atraumatic Eyes: EOMI, pupils reactive to light Neck: Supple, nontender, midline Respiratory: Coarse to auscultation bilaterally Cardiovascular: regular rate, no obvious murmurs Gastrointestinal: non-tender to palpation, bowel sounds heard. Neurological: Moves all extremities spontaneously, muscle strength is 5 out of 5 in lower extremity and 4 out of 5 in upper extremity Skin: No new skin lesions Assessment and plan Myasthenic crisis versus other autoimmune issue -Drastic waxing and waning of symptoms, today he is barely able to speak and cannot swallow -After discussing with neurology, they appear to have decided that at this point plasmapheresis is necessary as patient is not improving with current IVIG and other medication treatments. Had an extensive talk with the patient and he will think about the plasmapheresis but is okay with Jewel catheter for now. -Nephrology consulted for possible plasmapheresis -Continue all IV medications for now per neurology recommendations, will plan to titrate up prednisone as tolerated per neurology recommendations -Neurology recognitions appreciated, workup still pending, neurologist reached out to patient's neurologist at [facility] however still awaiting callback. Hypothyroidism -Continue levothyroxine iv Hypertension -Treat as needed, restart home meds when able Disposition -Over 40 minutes of critical care time was spent on this ICU encounter -Jewel cath pending, plans are for plasmapheresis however patient is still thinking about it LORRAINE WATERMAN Jan 21, 2019 15:46
[2019-01-21] MEDS: METHYLPREDNISOLONE 40 MG INJ IV SCH (16:13)
--- NOTE | 2019-01-21 17:05 | CONS ---
Assessment/Plan Assessment/Plan Assessment/Plan (Daily) 53M w/ h/o myasthenia gravis now w/ myasthenia crisis and needs access for plasmapharesis Plan: -Will plan to place bedside femoral vein temporary Trialysis catheter - indications, risks and benefits d/w pt, who understood and agreed to proceed -D/w Dr. Waterman and [employer] Consultation Date/Type/Reason Admit Date/Time Jan 20, 2019 at 02:09 Date of Consultation: Jan 21, 2019 Reason for Consultation Dialysis catheter Requesting Provider: LORRAINE WATERMAN Date/Time of Note DATE: 01/21/19 TIME: 17:05 Hx of Present Illness 53M w/ h/o myasthenia gravis now w/ myasthenia crisis and was admitted further treatment in ICU and has somewhat improved w/ medical therapy along. However, still symptomatic and neurology/internal medicine planning for plasmapharesis and is requesting temporary dialysis catheter placement for access. Pt denies any new issues currently. Limited ROS given pt's speech difficulties currently but overall negative except for noted in HPI Past Medical History Myasthenia gravis, hypertension, hypothyroidism Home Meds Reported Medications Amlodipine Besylate* (Amlodipine Besylate*) 10 Mg Tablet, 10 MG PO DAILY, #30 TAB 01/19/19 Levothyroxine Sodium* (Levothyroxine Sodium*) 112 Mcg Tablet, 112 MCG PO BEFORE BREAKFAST, #30 TAB 01/19/19 Pyridostigmine [place]* (Pyridostigmine [place]*) 60 Mg Tablet, 90 MG PO QID, TAB 01/19/19 Prednisone* (Prednisone*) 20 Mg Tab, 20 MG PO DAILY, TAB 01/19/19 Prednisone* (Prednisone*) 5 Mg Tab, 5 MG PO DAILY, TAB PLEASE SEE ATTACHED FOR DETAILED DIRECTIONS 01/19/19 Lisinopril* (Lisinopril*) 5 Mg Tablet, 5 MG PO DAILY, #30 TAB 01/19/19 Discontinued Scripts Dextran 70/Hypromellose (Artificial Tears) 1 Each Droperette, 1 EACH OPHTHALMIC TID PRN for irrigation, #1 BOTTLE Prov:SPENSERHONORIO BOYER 11/08/18 Medications Current Medications IV Flush (NS 3 ml) 3 ml PER PROTOCOL IV ; Start 01/20/19 at 02:30 Glycopyrrolate (Robinul) 0.2 mg QID PRN IV SECRETIONS Last administered on 01/20/19 18:20; Admin Dose 0.2 MG; Start 01/20/19 at 09:00 Levothyroxine Sodium (Synthroid Iv) 56 mcg DAILY IV Last administered on 01/21/19 08:38; Admin Dose 56 MCG; Start 01/20/19 at 09:30 Famotidine (Pepcid Iv) 20 mg BID IV Last administered on 01/21/19 08:34; Admin Dose 20 MG; Start 01/20/19 at 10:30 Pyridostigmine [place] (Regonol) 2 mg Q3 IV Last administered on 01/21/19 16:20; Admin Dose 2 MG; Start 01/20/19 at 18:00 Potassium Chloride/Dextrose/ Sod Cl 1,000 ml @ 100 mls/hr Q10H IV Last administered on 01/21/19 11:36; Admin Dose 100 MLS/HR; Start 01/21/19 at 10:30 Methylprednisolone Sodium Succinate (Solu-Medrol) 20 mg DAILY IV Last administered on 01/21/19 16:13; Admin Dose 20 MG; Start 01/21/19 at 13:00 Allergies: Coded Allergies: No Known Allergy (Unverified , 01/19/19) Past Surgical History Past Surgical Hx: no surgical history Social History Alcohol Use: none Smoking Status: Never smoker Drug use: none Alcohol Use: none Smoking Status: Never smoker Drug Use: none Exam/Review of Systems Exam Vitals Vital Signs Date Temp Pulse Resp B/P (MAP) Pulse Ox O2 O2 Flow FiO2 Time Delivery Rate 01/21/19 86 16:00 01/21/19 21 131/92 96 13:00 (105) 01/21/19 98.5 12:00 01/21/19 Room Air 08:00 01/19/19 2 18:00 Intake and Output 01/20/19 01/20/19 01/21/19 1414:59 22:59 06:59 IntakeIntake Total 656.8 ml 503.6 ml 0 ml OutputOutput Total 500 ml 900 ml BalanceBalance 656.8 ml 3.6 ml -900 ml Exam Gen: awake, alert, NAD, marked weakness Neck: supple Lungs: clear Heart: Reg Abd: soft, flat, NT, ND Extr: mild weakness bilaterally but equal, warm, no cyanosis, no wounds, no edema Results Result Diagram: 01/21/19 0438 01/21/19 0438 Results 24hrs Laboratory Tests Test 01/21/19 04:38 White Blood Count 6.1 Red Blood Count 4.32 L Hemoglobin 13.1 L Hematocrit 39.0 L Mean Corpuscular Volume 90.3 Mean Corpuscular Hemoglobin 30.3 Mean Corpuscular Hemoglobin Concent 33.6 Red Cell Distribution Width 11.9 Platelet Count 291 Mean Platelet Volume 10.1 Immature Granulocytes % 0.200 Neutrophils % 60.5 Lymphocytes % 31.0 Monocytes % 8.0 Eosinophils % 0.3 Basophils % 0.0 Nucleated Red Blood Cells % 0.0 Immature Granulocytes # 0.010 Neutrophils # 3.7 Lymphocytes # 1.9 Monocytes # 0.5 Eosinophils # 0.0 Basophils # 0.0 Nucleated Red Blood Cells # 0.0 Sodium Level 141 Potassium Level 3.4 L Chloride Level 105 Carbon Dioxide Level 31 Anion Gap 5 Blood Urea Nitrogen 21 H Creatinine 0.76 Est Glomerular Filtrat Rate mL/min > 60 Glucose Level 92 Calcium Level 9.4 Phosphorus Level 4.1 Magnesium Level 2.0 Medications Medication Current Medications IV Flush (NS 3 ml) 3 ml PER PROTOCOL IV ; Start 01/20/19 at 02:30 Glycopyrrolate (Robinul) 0.2 mg QID PRN IV SECRETIONS Last administered on 01/20/19at 18:20; Admin Dose 0.2 MG; Start 01/20/19 at 09:00 Levothyroxine Sodium (Synthroid Iv) 56 mcg DAILY IV Last administered on 01/21/19at 08:38; Admin Dose 56 MCG; Start 01/20/19 at 09:30 Famotidine (Pepcid Iv) 20 mg BID IV Last administered on 01/21/19at 08:34; Admin Dose 20 MG; Start 01/20/19 at 10:30 Pyridostigmine [place] (Regonol) 2 mg Q3 IV Last administered on 01/21/19at 1 6:20; Admin Dose 2 MG; Start 01/20/19 at 18:00 Potassium Chloride/Dextrose/ Sod Cl 1,000 ml @ 100 mls/hr Q10H IV Last administered on 01/21/19at 11:36; Admin Dose 100 MLS/HR; Start 01/21/19 at 10:30 Methylprednisolone Sodium Succinate (Solu-Medrol) 20 mg DAILY IV Last administered on 01/21/19at 16:13; Admin Dose 20 MG; Start 01/21/19 at 13:00 ABBY MCMULLEN MD Jan 21, 2019 17:05
--- NOTE | 2019-01-21 17:06 | SIPON ---
Date/Time of Note Date/Time of Note DATE: 01/21/19 TIME: 17:05 Operative Report Preoperative Diagnosis Myasthenia Gravis, needs plasmapharesis access Postoperative Diagnosis same Operation/Procedure Performed Right femoral vein Jewel Trialysis catheter placement with ultrasound Surgeon see signature line cashier assistant N/A Anesthesia: other (local) Estimated blood loss: minimal Transfusion Required none Specimen N/A Grafts/Implants none Complications none ABBY MCMULLEN MD Jan 21, 2019 17:06
[2019-01-21] MEDS ORDERED: hydrALAzine 20 MG INJ IV PRN (23:00)
[2019-01-22] VITALS (48 sets, daily range): BP systolic 74–163; BP diastolic 36–118; PULSE 66–102; RESP 12–28
[2019-01-22] MEDS: GLYCOPYRROLATE 0.4 MG INJ IV PRN
[2019-01-22] MEDS: PYRIDOSTIGMINE 10 MG IV SCH ×7 (03:30→20:36)
[2019-01-22] MEDS: D5-0.2 NACL + KCL 20 MEQ 1,000 ML IV SCH ×2 (05:49→16:02)
[2019-01-22] MEDS ORDERED: GLYCOPYRROLATE 0.4 MG INJ IV PRN (07:30)
--- NOTE | 2019-01-22 08:42 | OPR ---
DATE OF OPERATION: 01/21/2019 PREOPERATIVE DIAGNOSIS: Severe myasthenia gravis, need for plasmapheresis. POSTOPERATIVE DIAGNOSIS: Severe myasthenia gravis, need for plasmapheresis. PROCEDURE: Right femoral vein temporary dialysis catheter placement with ultrasound guidance. ANESTHESIA: Local. ESTIMATED BLOOD LOSS: Minimal. SPECIMENS: None. COMPLICATIONS: None. PREOPERATIVE INDICATIONS: This is a 53-year-old gentleman with history of myasthenia gravis, now with crisis with severe weakness. The patient has been treated and has improvement of his symptoms. However, the patient may require plasmapheresis as per neurology and internal medicine. We requested to aid in placing a dialysis access catheter for this potential. The patient has agreed to the procedure. The risks and benefits of the procedure were discussed with the patient, who understood and agreed to proceed. DESCRIPTION OF PROCEDURE: The patient was properly identified in the ICU and placed in a supine position. The patient's right groin was evaluated with ultrasound, which demonstrated widely patent femoral artery and femoral veins without any gross abnormalities. The right groin area was then prepped and draped in the usual sterile fashion. Ultrasound was used to guide access. Local anesthesia was injected into the skin and subcutaneous tissue overlying the femoral vein. A standard access needle was then used to access the femoral vein under ultrasound guidance. A J-wire was then advanced. A skin nate was created using an #11 blade scalpel. The access site and vein were then sequentially dilated. A 25 cm Trialysis catheter was then advanced without any difficulty. The wire was removed and the ports were widely patent, and allowed for breast drawback and flushing with saline. All the ports were then locked with concentrated heparin at 1000 units per mL at the appropriate volumes. The catheter was affixed to the skin using silk sutures. Caps were placed and bowel patch along with dry dressings were then placed. The patient tolerated the procedure well without any immediate complications. He remained stable in the ICU. Dictated By: ABBY LONG/RITESH Conf#: [id number] DID#: [id number] CC: RICARDO SIMMONS MD; BRYSON FARRELL MD; LORRAINE WATERMAN MD;*EndCC* MTDD
--- NOTE | 2019-01-22 09:02 | CONS ---
DATE OF ADMISSION: 01/20/2019 DATE OF CONSULTATION: 01/22/2019 TYPE OF CONSULTATION: Nephrology. REASON FOR CONSULTATION: Plasmapheresis. HISTORY OF PRESENT ILLNESS: This is a 53-year-old male with a newly diagnosis of myasthenia gravis a pproximately 1 month ago after suffering apparent flu, who presented to [facility] with complaints of difficulty swallowing for the last several days, progressively getting worse. The patient was taking Mestinon 60 mg daily; however, the patient states over the last 2 days he has had decreasing ability to ambulate, weakness, and dysphagia. As a result, he came into the [facility] Emergency Room and was admitted to intensive care unit. In the intensive care unit, the yoselin ent was seen by neurologist, was started on IVIG, but the patient's symptoms did not improve and a re commendation was made by neurology for plasmapheresis. There have been no reports of any hemoptysis, hematemesis or hematochezia. PAST MEDICAL HISTORY: Recent diagnosis of myasthenia gravis, history of hypertension, and hypothyroi dism. FAMILY HISTORY: No family history of kidney disease or heart disease. SOCIAL HISTORY: He does not drink, smoke or do drugs. PAST SURGICAL HISTORY: None. MEDICATIONS: The patient's medications have been reviewed. REVIEW OF SYSTEMS: A 14-point review of systems was conducted. Pertinent positives stated in HPI, o therwise negative. PHYSICAL EXAMINATION: VITAL SIGNS: Blood pressure is 136/101, respirations 13, pulse 66, temperature 97.5. HEENT: Head is normocephalic. NECK: Supple. HEART: Regular rate. LUNGS: Show diminished breath sounds at the base. ABDOMEN: Soft, nontender to palpation without rebound or guarding. EXTREMITIES: Negative for clubbing, cyanosis, no edema. DERMATOLOGIC: No rashes. MUSCULOSKELETAL: No joint effusion. NEUROLOGIC: The patient's arms are mildly but no myotonic activity. LABORATORY DATA: From 01/22/2019 was reviewed. ASSESSMENT AND PLAN: This is a 53-year-old male who presents with: 1. Myasthenia gravis crisis. A recommendation was made for plasmapheresis. Please note, I discusse d with the patient in detail the risks and benefits of plasmapheresis including an infection, hemodyn amic changes, possible bleeding. The patient is understanding and wishes to proceed. Plan is to ord er plasmapheresis. We will order for 3 exchanges of 1.5 plasma volume. We will replace plasma volum e with 2/3 5% albumin And 1/3 normal saline. We will also give elemental calcium 4 grams with plasma pheresis as needed to prevent hypocalcemia. We will monitor closely. We will follow up with neurolo gy as well. The patient is status post IVIG. 2. Hypothyroidism. Continue Synthroid. 3. Hypertension. Continue current blood pressure regimen. Thank you, Dr. Alarcon, for this interesting consult. It will be a pleasure to follow the patient with celeste palomino throughout the hospital course. Dictated By: MARIBELL CARROLL DO NR/NTS Conf#: [id number] DID#: [id number] CC: LORRAINE ALARCON MD; BRYSON FARRELL MD; RICARDO SIMMONS MD;*EndCC*
[2019-01-22] MEDS: LEVOTHYROXINE 100 MCG VIAL IV SCH (09:32)
[2019-01-22] MEDS: METHYLPREDNISOLONE 40 MG INJ IV SCH (09:35)
[2019-01-22] MEDS: FAMOTIDINE 20 MG INJ IV SCH ×2 (09:39→20:36)
[2019-01-22] MEDS ORDERED: ALBUMIN HUMAN 5% 500ML INJ CATHETER SCH (10:00)
[2019-01-22] MEDS ORDERED: CALCIUM GLUCONATE 10% 2 GM in DEXTROSE 5% 100 ML IVPB ONE (11:00)
[2019-01-22] MEDS ORDERED: CITRATE DEXTROSE SOLUTION 1,000 ML SOLUTION MC ONE (11:00)
--- NOTE | 2019-01-22 11:14 | CONS ---
Assessment/Plan Assessment/Plan Hospital Course 53 M w/ recently diagnosed Myasthenia Gravis...who presents for evaluation of dysphagia, dysarthria, and other weakness...for which neurology is consulted. He was notably prescribed IVIG at home x days, and an increased dose of Mestinon in recent days...for management of the same....but has clinically worsened.... As well, he received 10mg iv pyridostigmine x 2 and 10mg iv decadron x 1 upon arrival to [facility] on 01/19....which are likely contributors to continued clinical decline.. The clinical picture is consistent w/ myasthenia gravis exacerbation. Head CT is without acute intracranial pathology. s/p 2g/kg course of IVIG on 01/21, with limited improvement in dysphagia.. P: Appreciate Nephrology evaluation for plasmapheresis Continue Mestinon 2mg iv q3h for now OK to continue Prednisone 20mg daily for now Glycopyrrolate prn OK.. OK to Hold Cellcept for now Cont VC/NIF q4h for now Supportive care per primary Will follow clinically Consultation Date/Type/Reason Admit Date/Time Jan 20, 2019 at 02:09 Type of Consult Neurology Reason for Consultation myasthenia gravis Requesting Provider: LORRAINE WATERMAN Date/Time of Note DATE: 01/22/19 TIME: 11:12 24 HR Interval Summary Free Text/Dictation Started on glycopyrrolate for increased secretions Reports perhaps improved dysarthria Notes continued dysphagia Exam Vital Signs Vitals Vital Signs Date Temp Pulse Resp B/P (MAP) Pulse Ox O2 O2 Flow FiO2 Time Delivery Rate 01/22/19 75 08:00 01/22/19 13 136/101 99 Room Air 07:00 (113) 01/22/19 97.5 04:00 01/19/19 2 18:00 Intake and Output 01/21/19 01/21/19 01/22/19 1515:00 23:00 07:00 IntakeIntake Total 0 ml 0 ml OutputOutput Total 700 ml 300 ml 375 ml BalanceBalance -700 ml -300 ml -375 ml JOESPH LLAMAS Jan 22, 2019 11:14
--- NOTE | 2019-01-22 11:30 | CONS ---
Consult Date/Type/Reason Admit Date/Time Jan 20, 2019 at 02:09 Initial Consult Date 01/21/19 Type of Consult Pulmonary Requesting Provider: LORRAINE WATERMAN Date/Time of Note DATE: 01/22/19 TIME: 11:27 Subjective Slowly improving. Less shortness of breath improving generalized weakness. Objective Vital Signs Date Temp Pulse Resp B/P (MAP) Pulse Ox O2 O2 Flow FiO2 Time Delivery Rate 01/22/19 75 08:00 01/22/19 13 136/101 99 Room Air 07:00 (113) 01/22/19 97.5 04:00 01/19/19 2 18:00 Intake and Output 01/21/19 01/21/19 01/22/19 1515:00 23:00 07:00 IntakeIntake Total 0 ml 0 ml OutputOutput Total 700 ml 300 ml 375 ml BalanceBalance -700 ml -300 ml -375 ml Exam GENERAL: Well-nourished well-developed gentleman comfortable at rest, talking in complete sentences no accessory muscle use VITAL SIGNS: per chart NECK: Supple. No JVD or lymphadenopathy. CARDIAC EXAM: S1, S2. No added sounds or murmurs. CHEST: clear bilaterally, No added sounds, rales or wheezes ABDOMEN: Soft, nontender. No guarding or rebound. EXTREMITIES: No cyanosis, clubbing or edema. NEUROLOGIC: Generalized weakness. Results/Medications Result Diagram: 01/22/19 0426 01/22/19 0426 Results 24 hrs Laboratory Tests Test 01/21/19 17:52 01/22/19 04:26 Platelet Count 278 245 Prothrombin Time 15.5 H Prothrombin Time Ratio 1.2 INR International Normalized Ratio 1.22 Activated Partial Thromboplast Time 48.1 H Thrombin Time 75.2 H White Blood Count 6.2 Red Blood Count 4.16 L Hemoglobin 12.9 L Hematocrit 37.2 L Mean Corpuscular Volume 89.4 Mean Corpuscular Hemoglobin 31.0 Mean Corpuscular Hemoglobin Concent 34.7 Red Cell Distribution Width 11.9 Mean Platelet Volume 10.2 Immature Granulocytes % 0.200 Neutrophils % 68.8 Lymphocytes % 20.8 Monocytes % 9.8 Eosinophils % 0.2 Basophils % 0.2 Nucleated Red Blood Cells % 0.0 Immature Granulocytes # 0.010 Neutrophils # 4.3 Lymphocytes # 1.3 Monocytes # 0.6 Eosinophils # 0.0 Basophils # 0.0 Nucleated Red Blood Cells # 0.0 Sodium Level 137 Potassium Level 4.0 Chloride Level 100 Carbon Dioxide Level 33 H Anion Gap 4 L Blood Urea Nitrogen 14 Creatinine 0.76 Est Glomerular Filtrat Rate mL/min > 60 Glucose Level 108 Calcium Level 9.3 Phosphorus Level 4.0 Magnesium Level 1.8 Medications Current Medications IV Flush (NS 3 ml) 3 ml PER PROTOCOL IV ; Start 01/20/19 at 02:30 Glycopyrrolate (Robinul) 0.2 mg QID PRN IV SECRETIONS Last administered on 01/22/19at 00:00; Admin Dose 0.2 MG; Start 01/20/19 at 09:00 Levothyroxine Sodium (Synthroid Iv) 56 mcg DAILY IV Last administered on 01/22/19at 09:32; Admin Dose 56 MCG; Start 01/20/19 at 09:30 Famotidine (Pepcid Iv) 20 mg BID IV Last administered on 01/22/19at 09:39; Admin Dose 20 MG; Start 01/20/19 at 10:30 Pyridostigmine [place] (Regonol) 2 mg Q3 IV Last administered on 01/22/19at 09:40; Admin Dose 2 MG; Start 01/20/19 at 18:00 Potassium Chloride/Dextrose/ Sod Cl 1,000 ml @ 100 mls/hr Q10H IV Last administered on 01/22/19at 05:49; Admin Dose 100 MLS/HR; Start 01/21/19 at 10:30 Methylprednisolone Sodium Succinate (Solu-Medrol) 20 mg DAILY IV Last administered on 01/22/19at 09:35; Admin Dose 20 MG; Start 01/21/19 at 13:00 Hydralazine HCl (Apresoline) 10 mg Q4H PRN IV SBP > 160; Start 01/21/19 at 23:00 Albumin Human (Alburx) 4,000 ml NOW CATHETER ; Start 01/22/19 at 10:00; Stop 01/22/19 at 15:00 Calcium Gluconate 2 gm/Dextrose 120 ml @ 60 mls/hr ONCE ONCE IVPB ; Start 01/22/19 at 11:00; Stop 01/22/19 at 12:59 Assessment/Plan Hospital Course (Demo Recall) Assessment 1. Acute exacerbation of myasthenia gravis diagnosed 1 month ago. status post IVIG now starting on plasmapheresis. 2. Hypoxemic and hypercapnic respiratory failure secondary to alveolar hypoventilation from above 3. Dysphagia secondary to above patient has been n.p.o. now for 10 days declined nasogastric tube feeding. Plan 1. Patient to start plasmapheresis today. 2. Continue speech therapy recommendations and aspiration precautions 3. Continue vital capacity although decreased frequency is clinically improving currently at 1.8 L. 4. Physical therapy eval Critical care time 40 minutes. BRYSON FARRELL MD, [facility] Jan 22, 2019 11:30
--- NOTE | 2019-01-22 13:33 | PN ---
Date/Time of Note Date/Time of Note DATE: 01/22/19 TIME: 13:31 Objective Vitals Vital Signs Date Temp Pulse Resp B/P (MAP) Pulse Ox O2 O2 Flow FiO2 Time Delivery Rate 01/22/19 75 12:00 01/22/19 15 140/100 100 Room Air 11:00 (113) 01/22/19 98.3 08:30 01/19/19 2 18:00 Intake and Output 01/21/19 01/21/19 01/22/19 1414:59 22:59 06:59 IntakeIntake Total 0 ml 0 ml OutputOutput Total 475 ml 475 ml 375 ml BalanceBalance -475 ml -475 ml -375 ml Results Result Diagram: 01/22/19 0426 01/22/19 0426 Medications Medications Current Medications IV Flush (NS 3 ml) 3 ml PER PROTOCOL IV ; Start 01/20/19 at 02:30 Glycopyrrolate (Robinul) 0.2 mg QID PRN IV SECRETIONS Last administered on 01/22/19at 00:00; Admin Dose 0.2 MG; Start 01/20/19 at 09:00 Levothyroxine Sodium (Synthroid Iv) 56 mcg DAILY IV Last administered on 01/22/19at 09:32; Admin Dose 56 MCG; Start 01/20/19 at 09:30 Famotidine (Pepcid Iv) 20 mg BID IV Last administered on 01/22/19at 09:39; Admin Dose 20 MG; Start 01/20/19 at 10:30 Potassium Chloride/Dextrose/ Sod Cl 1,000 ml @ 100 mls/hr Q10H IV Last administered on 01/22/19at 05:49; Admin Dose 100 MLS/HR; Start 01/21/19 at 10:30 Methylprednisolone Sodium Succinate (Solu-Medrol) 20 mg DAILY IV Last administered on 01/22/19at 09:35; Admin Dose 20 MG; Start 01/21/19 at 13:00 Hydralazine HCl (Apresoline) 10 mg Q4H PRN IV SBP > 160; Start 01/21/19 at 23:00 Albumin Human (Alburx) 4,000 ml NOW CATHETER Last administered on 01/22/19at 11:15; Admin Dose 4,000 ML; Start 01/22/19 at 10:00; Stop 01/22/19 at 15:00 Pyridostigmine [place] (Regonol) 2 mg Q3 IV ; Start 01/22/19 at 12:00 VTE Prophylaxis Risk score (from Ns)>0 risk: 7 SCD applied (from Ns): No SCD contraindication: other Lines/Catheters IV Catheter Type: Ordonez in Place: No Assessment/Plan Hospital Course Subjective Patient symptoms have improved, able to speak much better than yesterday Objective Physical exam General: Patient is laying in bed and answers questions appropriately Mentation: Patient is alert and oriented 4, Head: Normocephalic atraumatic Eyes: EOMI, pupils reactive to light Neck: Supple, nontender, midline Respiratory: Coarse to auscultation bilaterally Cardiovascular: regular rate, no obvious murmurs Gastrointestinal: non-tender to palpation, bowel sounds heard. Neurological: Moves all extremities spontaneously, muscle strength is 5 out of 5 in lower extremity and 4 out of 5 in upper extremity Skin: No new skin lesions Assessment and plan Myasthenic crisis versus other autoimmune issue -Drastic waxing and waning of symptoms, today he is barely able to speak and cannot swallow -After discussing with neurology, they appear to have decided that at this point plasmapheresis is necessary as patient is not improving with current IVIG and other medication treatments. -Nephrology consulted for plasmapheresis -Continue all IV medications for now per neurology recommendations, -Neurology recognitions appreciated, workup still pending, -Plasmapheresis initiated 01/22/19, will do every other day for at least 3 doses for now. Hypothyroidism -Continue levothyroxine iv Hypertension -Treat as needed, restart home meds when able Disposition -Over 40 minutes of critical care time was spent on this ICU encounter -pending plasmapharesis LORRAINE WATERMAN Jan 22, 2019 13:33
[2019-01-22] MEDS ORDERED: PYRIDOSTIGMINE 10 MG IV SCH (21:00)
[2019-01-23] VITALS (40 sets, daily range): BP systolic 81–127; BP diastolic 61–97; PULSE 70–99; RESP 11–22
[2019-01-23] MEDS: PYRIDOSTIGMINE 10 MG IV SCH ×8 (00:35→20:51)
[2019-01-23] MEDS: D5-0.2 NACL + KCL 20 MEQ 1,000 ML IV SCH ×3 (02:20→21:29)
[2019-01-23] MEDS: FAMOTIDINE 20 MG INJ IV SCH ×2 (08:50→20:50)
[2019-01-23] MEDS: METHYLPREDNISOLONE 40 MG INJ IV SCH (08:51)
--- NOTE | 2019-01-23 09:14 | PN ---
DATE: 01/23/2019 SUBJECTIVE: The patient had plasmapheresis yesterday, tolerated well. The patient states that he is neurologically feeling some improvement and increase strength. No other events noted. OBJECTIVE: VITAL SIGNS: Blood pressure is 108/87, respirations 15, pulse 78, temperature 98.6. HEENT: Head is normocephalic. NECK: Supple. HEART: Regular rate. LUNGS: Show diminished breath sounds at the base. ABDOMEN: Soft, nontender to palpation without rebound or guarding. EXTREMITIES: Negative for clubbing, cyanosis, no edema. DERMATOLOGIC: No rashes. MUSCULOSKELETAL: No joint effusion. NEUROLOGIC: No change in exam. MEDICATIONS: Reviewed. LABORATORY DATA: From 01/23/2019 was reviewed. Cultures have been reviewed. ASSESSMENT AND PLAN: 1. Myasthenia gravis crisis. The patient is status post IVIG with no significant improvement. The patient was initiated on plasmapheresis. Will anticipate 3 daily sessions. The patient is status po st plasmapheresis yesterday, tolerated well. Will have another session today. Will order for exchan ge of 1.5 of plasma volume. Will replace with 2/3 5% albumin, 1/3 normal saline and will give 4 gram s of elemental calcium. Will continue to monitor closely. 2. Hyperthyroidism. Continue Synthroid. 3. Hypertension. Continue current blood pressure regimen. 4. Hypoxemic hypercapnic respiratory failure secondary to alveolar hypoventilation. Continue curren t medical management. 5. Dysphagia. The patient is currently on a pureed diet. Will continue to monitor. Dictated By: MARIBELL CARROLL DO NR/NTS Conf#: [id number] DID#: [id number] CC: RICARDO SIMMONS MD;*EndCC*
[2019-01-23] MEDS: LEVOTHYROXINE 100 MCG VIAL IV SCH (09:19)
--- NOTE | 2019-01-23 09:43 | CONS ---
Consult Date/Type/Reason Admit Date/Time Jan 20, 2019 at 02:09 Initial Consult Date 01/21/19 Type of Consult Pulmonary Requesting Provider: LORRAINE WATERMAN Date/Time of Note DATE: 01/23/19 TIME: 09:42 Subjective Status post plasmapheresis yesterday. Slowly improving with increased muscle strength. Denies any shortness of breath this morning. Still has dysarthria. Objective Vital Signs Date Temp Pulse Resp B/P (MAP) Pulse Ox O2 O2 Flow FiO2 Time Delivery Rate 01/23/19 82 08:00 01/23/19 15 108/87 96 Room Air 06:30 (94) 01/23/19 21 03:49 01/22/19 98.1 23:00 01/19/19 2 18:00 Intake and Output 01/22/19 01/22/19 01/23/19 1515:00 23:00 07:00 IntakeIntake Total 800 ml 400 ml OutputOutput Total 300 ml 250 ml BalanceBalance 500 ml 400 ml -250 ml Exam GENERAL: Well-nourished well-developed gentleman comfortable at rest, talking in complete sentences no accessory muscle use VITAL SIGNS: per chart NECK: Supple. No JVD or lymphadenopathy. CARDIAC EXAM: S1, S2. No added sounds or murmurs. CHEST: clear bilaterally, No added sounds, rales or wheezes ABDOMEN: Soft, nontender. No guarding or rebound. EXTREMITIES: No cyanosis, clubbing or edema. NEUROLOGIC: Generalized weakness. Vent Setting Fraction of Inspired Oxygen pe: 21 Results/Medications Result Diagram: 01/22/19 0426 01/23/19 0443 Results 24 hrs Laboratory Tests Test 01/22/19 10:16 01/23/19 04:43 Hepatitis B Surface Antigen NEGATIVE White Blood Count Pending Red Blood Count Pending Hemoglobin Pending Hematocrit Pending Mean Corpuscular Volume Pending Mean Corpuscular Hemoglobin Pending Mean Corpuscular Hemoglobin Concent Pending Red Cell Distribution Width Pending Platelet Count Pending Mean Platelet Volume Pending Sodium Level 136 Potassium Level 4.9 Chloride Level 104 Carbon Dioxide Level 25 Anion Gap 7 Blood Urea Nitrogen 15 Creatinine 0.46 L Est Glomerular Filtrat Rate mL/min > 60 Glucose Level 115 Calcium Level 8.8 Phosphorus Level 3.2 Magnesium Level 1.8 Medications Current Medications IV Flush (NS 3 ml) 3 ml PER PROTOCOL IV ; Start 4/8/19 at 02:30 Glycopyrrolate (Robinul) 0.2 mg QID PRN IV SECRETIONS Last administered on 01/22/19at 00:00; Admin Dose 0.2 MG; Start 01/20/19 at 09:00 Levothyroxine Sodium (Synthroid Iv) 56 mcg DAILY IV Last administered on 01/23/19at 09:19; Admin Dose 56 MCG; Start 01/20/19 at 09:30 Famotidine (Pepcid Iv) 20 mg BID IV Last administered on 01/23/19at 08:50; Admin Dose 20 MG; Start 01/20/19 at 10:30 Potassium Chloride/Dextrose/ Sod Cl 1,000 ml @ 100 mls/hr Q10H IV Last administered on 01/23/19at 02:20; Admin Dose 100 MLS/HR; Start 01/21/19 at 10:30 Methylprednisolone Sodium Succinate (Solu-Medrol) 20 mg DAILY IV Last administered on 01/23/19at 08:51; Admin Dose 20 MG; Start 01/21/19 at 13:00 Hydralazine HCl (Apresoline) 10 mg Q4H PRN IV SBP > 160; Start 01/21/19 at 23:00 Pyridostigmine [place] (Regonol) 2 mg Q3 IV Last administered on 01/23/19at 08:50; Admin Dose 2 MG; Start 01/22/19 at 21:00 Assessment/Plan Hospital Course (Demo Recall) Assessment 1. Acute exacerbation of myasthenia gravis diagnosed 1 month ago. status post IVIG now starting on plasmapheresis. 2. Hypoxemic and hypercapnic respiratory failure secondary to alveolar hypoventilation from above 3. Dysphagia secondary to above patient has been n.p.o. now for 10 days declined nasogastric tube feeding. Plan 1. Continue plasmapheresis, continue steroids 2. Continue speech therapy recommendations and aspiration precautions 3. Continue vital capacity although decreased frequency is clinically improving currently at 1.8 L. 4. Physical therapy eval Critical care time 40 minutes. Likely transfer to telemetry after second plasmapheresis today. BRYSON FARRELL MD, [facility] Jan 23, 2019 09:43
[2019-01-23] MEDS ORDERED: ALBUMIN HUMAN 5% 500ML INJ CATHETER ONE (11:00)
[2019-01-23] MEDS ORDERED: CITRATE DEXTROSE SOLUTION 1,000 ML SOLUTION MC ONE (11:00)
[2019-01-23] MEDS ORDERED: CALCIUM GLUCONATE 10% 2 GM in DEXTROSE 5% 100 ML IVPB ONE (11:00)
--- NOTE | 2019-01-23 11:37 | CONS ---
Assessment/Plan Assessment/Plan Hospital Course 53 M w/ recently diagnosed Myasthenia Gravis...who presents for evaluation of dysphagia, dysarthria, and diplopia...for which neurology is consulted. He was notably prescribed IVIG at home x 3 days, and an increased dose of Mestinon in recent days...for management of the same....but has clinically worsened.... As well, he received 10mg iv pyridostigmine x 2 and 10mg iv decadron x 1 upon arrival to [facility] on 01/19....which are likely contributors to continued clinical decline.. The clinical picture is consistent w/ myasthenia gravis exacerbation...which is showing some delayed improvement with plasmapheresis. Head CT is without acute intracranial pathology. s/p 2g/kg course of IVIG on 01/21, with limited improvement in dysphagia.. PLEX started on 01/22 P: Continue plasmapheresis for ~ 5 sessions, pending clinical improvement Continue Mestinon 2mg iv q3h for now OK to continue Prednisone 20mg daily for now Glycopyrrolate prn OK.. May resume Cellcept per ops once medication is reconciled.. Neurologically stable for transfer out of ICU.. Will follow clinically Consultation Date/Type/Reason Admit Date/Time Jan 20, 2019 at 02:09 Type of Consult Neurology Reason for Consultation mg Requesting Provider: LORRAINE WATERMAN Date/Time of Note DATE: 01/23/19 TIME: 11:37 24 HR Interval Summary Free Text/Dictation Continues critical care. Now s/p day 1 of plasma exchange. Pt states that his speech and swallowing have improved. Exam Vital Signs Vitals Vital Signs Date Temp Pulse Resp B/P (MAP) Pulse Ox O2 O2 Flow FiO2 Time Delivery Rate 01/23/19 82 08:00 01/23/19 15 108/87 96 Room Air 06:30 (94) 01/23/19 21 03:49 01/22/19 98.1 23:00 01/19/19 2 18:00 Intake and Output 01/22/19 01/22/19 01/23/19 1515:00 23:00 07:00 IntakeIntake Total 800 ml 400 ml OutputOutput Total 300 ml 250 ml BalanceBalance 500 ml 400 ml -250 ml Exam PE: Gen Appearance: No Apparent Distress HEENT: Normocephalic Cardiovascular: Regular rate Lungs: Clear bilaterally Abdomen: Soft Extremities: Dry NE: The patient was alert and oriented. Speech was dysarthric, though significantly improved. Fund of knowledge was normal. Pupils were equal and reactive to light. There was no afferent pupillary defect. Visual miranda were diminished bilaterally. Funduscopic examination was limited. Extra-ocular movements were limited, bilaterally, in all directions. Ptosis was absent. There was no nystagmus. Facial sensation was normal. Face was symmetric with normal strength. Hearing was intact. Palate movements were normal. Neck strength was normal. There was normal tongue bulk and speed of movement. Tone was normal. Muscle bulk was normal. I did not see fasciculations. Arms and legs were strong to confrontation. Vibration sensation was normal. Temperature and pinprick sensation was normal. Rapid alternating movements were normal. There was no dysmetria. There was no intention tremor. Gait was deferred due to bedrest. Arm and leg reflexes were 2+ and symmetric. Bauer's sign was absent. Plantar responses were flexor. REAGAN DOWNS NP Jan 23, 2019 11:37 JOESPH LLAMAS Jan 24, 2019 06:19
--- NOTE | 2019-01-23 15:56 | PN ---
Date/Time of Note Date/Time of Note DATE: 01/23/19 TIME: 15:55 Objective Vitals Vital Signs Date Temp Pulse Resp B/P (MAP) Pulse Ox O2 O2 Flow FiO2 Time Delivery Rate 01/23/19 97.4 12:07 01/23/19 80 12:00 01/23/19 17 96/87 (90) 100 12:00 01/23/19 Room Air 06:30 01/23/19 21 03:49 01/19/19 2 18:00 Intake and Output 01/22/19 01/22/19 01/23/19 1414:59 22:59 06:59 IntakeIntake Total 800 ml 500 ml OutputOutput Total 350 ml 250 ml BalanceBalance 450 ml 500 ml -250 ml Results Result Diagram: 01/23/19 1050 01/23/19 0443 Medications Medications Current Medications IV Flush (NS 3 ml) 3 ml PER PROTOCOL IV ; Start 01/20/19 at 02:30 Glycopyrrolate (Robinul) 0.2 mg QID PRN IV SECRETIONS Last administered on 01/22/19at 00:00; Admin Dose 0.2 MG; Start 01/20/19 at 09:00 Levothyroxine Sodium (Synthroid Iv) 56 mcg DAILY IV Last administered on 01/23/19at 09:19; Admin Dose 56 MCG; Start 01/20/19 at 09:30 Famotidine (Pepcid Iv) 20 mg BID IV Last administered on 01/23/19at 08:50; Admin Dose 20 MG; Start 01/20/19 at 10:30 Potassium Chloride/Dextrose/ Sod Cl 1,000 ml @ 100 mls/hr Q10H IV Last administered on 01/23/19at 13:53; Admin Dose 100 MLS/HR; Start 01/21/19 at 10:30 Methylprednisolone Sodium Succinate (Solu-Medrol) 20 mg DAILY IV Last administered on 01/23/19at 08:51; Admin Dose 20 MG; Start 01/21/19 at 13:00 Hydralazine HCl (Apresoline) 10 mg Q4H PRN IV SBP > 160; Start 01/21/19 at 23:00 Pyridostigmine [place] (Regonol) 2 mg Q3 IV Last administered on 01/23/19at 1 3:52; Admin Dose 2 MG; Start 01/22/19 at 21:00 VTE Prophylaxis Risk score (from Ns)>0 risk: 6 SCD applied (from [facility] [place]): No SCD contraindication: other Lines/Catheters IV Catheter Type: Ordonez in Place: No Assessment/Plan Hospital Course Subjective Patient symptoms have not worsened, still with some mild residual right-sided issues Objective Physical exam General: Patient is laying in bed and answers questions appropriately Mentation: Patient is alert and oriented 4, Head: Normocephalic atraumatic Eyes: EOMI, pupils reactive to light Neck: Supple, nontender, midline Respiratory: Coarse to auscultation bilaterally Cardiovascular: regular rate, no obvious murmurs Gastrointestinal: non-tender to palpation, bowel sounds heard. Neurological: Moves all extremities spontaneously, muscle strength is 5 out of 5 in left upper and lower extremity, 4 out of 5 in right upper and lower extremity Skin: No new skin lesions Assessment and plan Myasthenic crisis versus other autoimmune issue -Failed IVIG, plasmapheresis initiated -Nephrology consulted for plasmapheresis -Continue all IV medications for now per neurology recommendations, -Neurology recognitions appreciated, -Plasmapheresis initiated 01/22/19, will do every other day for at least 3 doses for now. Hypothyroidism -Continue levothyroxine iv, transition to p.o. soon Hypertension -Treat as needed, restart home meds when able Disposition -Over 40 minutes of critical care time was spent on this ICU encounter - plasmapharesis today LORRAINE WATERMAN Jan 23, 2019 15:56
[2019-01-24] VITALS (24 sets, daily range): BP systolic 88–118; BP diastolic 62–91; PULSE 69–94; RESP 11–24
[2019-01-24] MEDS: PYRIDOSTIGMINE 10 MG IV SCH ×6 (00:20→15:53)
[2019-01-24] MEDS: D5-0.2 NACL + KCL 20 MEQ 1,000 ML IV SCH (08:07)
[2019-01-24] MEDS: predniSONE 20 MG TAB PO SCH (08:32)
[2019-01-24] MEDS: LEVOTHYROXINE 100 MCG VIAL IV SCH (08:33)
--- NOTE | 2019-01-24 08:33 | PN ---
DATE: 01/24/2019 SUBJECTIVE: The patient is stable, no events overnight. No fevers, chills, nausea, or vomiting. Th e patient had plasmapheresis yesterday, tolerated well. The patient states that he is feeling a jordan le bit better. No other events noted. OBJECTIVE: VITAL SIGNS: Blood pressure is 101/78, respirations 16, pulse 79, temperature 98.2. HEENT: Head is normocephalic. NECK: Supple. HEART: Regular rate. LUNGS: Show diminished breath sounds at the base. ABDOMEN: Soft, nontender to palpation without rebound or guarding. EXTREMITIES: Negative for clubbing, cyanosis, no edema. DERMATOLOGIC: No rashes. MUSCULOSKELETAL: No joint effusion. NEUROLOGIC: No change in exam. MEDICATIONS: The patient's medications have been reviewed. LABORATORY DATA: Reviewed. ASSESSMENT AND PLAN: 1. Myasthenia gravis crisis. The patient is status post IVIG. No significant improvement, currentl y on plasmapheresis. The patient to have the third session today. We will continue with exchange of 1.5% plasma volume with replacement 2/3 of the plasma volume and 5% albumin with normal saline. We will continue to give 4 grams of elemental calcium. We will monitor closely. Follow up with neurolo gy for recommendations. 2. Hypothyroidism. Continue Synthroid. 3. Hypertension. Continue current blood pressure regimen. 4. Hypoxemic hypercapnic respiratory failure. Continue medical management. 5. Dysphagia. Continue modified diet. Dictated By: MARIBELL CARROLL DO NR/NTS Conf#: [id number] DID#: [id number] CC: RICARDO SIMMONS MD; BRYSON FARRELL MD; LORRAINE WATERMAN MD;*EndCC*
[2019-01-24] MEDS: FAMOTIDINE 20 MG INJ IV SCH ×2 (08:48→20:16)
--- NOTE | 2019-01-24 09:19 | PN ---
Date/Time of Note Date/Time of Note DATE: 01/24/19 TIME: 09:18 Objective Vitals Vital Signs Date Temp Pulse Resp B/P (MAP) Pulse Ox O2 O2 Flow FiO2 Time Delivery Rate 01/24/19 79 16 101/78 100 Room Air 06:00 (86) 01/24/19 98.2 04:00 01/23/19 21 03:49 Intake and Output 01/23/19 01/23/19 01/24/19 1515:00 23:00 07:00 IntakeIntake Total 1350 ml 700 ml OutputOutput Total 300 ml 600 ml 500 ml BalanceBalance -300 ml 750 ml 200 ml Results Result Diagram: 01/24/1943901/24/19439 Medications Medications Current Medications IV Flush (NS 3 ml) 3 ml PER PROTOCOL IV ; Start 01/20/19 at 02:30 Glycopyrrolate (Robinul) 0.2 mg QID PRN IV SECRETIONS Last administered on 01/22/19at 00:00; Admin Dose 0.2 MG; Start 01/20/19 at 09:00 Levothyroxine Sodium (Synthroid Iv) 56 mcg DAILY IV Last administered on 01/24/19 08:33; Admin Dose 56 MCG; Start 01/20/19 at 09:30 Famotidine (Pepcid Iv) 20 mg BID IV Last administered on 01/24/19 08:48; Admin Dose 20 MG; Start 01/20/19 at 10:30 Potassium Chloride/Dextrose/ Sod Cl 1,000 ml @ 100 mls/hr Q10H IV Last administered on 01/24/19 08:07; Admin Dose 100 MLS/HR; Start 01/21/19 at 10:30 Hydralazine HCl (Apresoline) 10 mg Q4H PRN IV SBP > 160; Start 01/21/19 at 23:00 Pyridostigmine [place] (Regonol) 2 mg Q3 IV Last administered on 01/24/19at 05:50; Admin Dose 2 MG; Start 01/22/19 at 21:00 Prednisone (Prednisone) 20 mg DAILY PO Last administered on 01/24/19 08:32; Admin Dose 20 MG; Start 01/24/19 at 09:00 VTE Prophylaxis Risk score (from Nsg)>0 risk: 7 SCD applied (from Nsg): No SCD contraindication: other Lines/Catheters IV Catheter Type: Ordonez in Place: No Assessment/Plan Hospital Course Subjective Patient symptoms have not worsened, still with some mild residual right-sided issues, swallowing difficulty has resolved Objective Physical exam General: Patient is laying in bed and answers questions appropriately Mentation: Patient is alert and oriented 4, Head: Normocephalic atraumatic Eyes: EOMI, pupils reactive to light Neck: Supple, nontender, midline Respiratory: Coarse to auscultation bilaterally Cardiovascular: regular rate, no obvious murmurs Gastrointestinal: non-tender to palpation, bowel sounds heard. Neurological: Moves all extremities spontaneously, muscle strength is 5 out of 5 in left upper and lower extremity, 4 out of 5 in right upper and lower extremity Skin: No new skin lesions Assessment and plan Myasthenic crisis versus other autoimmune issue -Failed IVIG, plasmapheresis initiated -Nephrology consulted for plasmapheresis -Continue all IV medications for now per neurology recommendations, -Neurology recognitions appreciated, -Plasmapheresis initiated 01/22/19, will do every other day for at least 3 doses for now. Hypothyroidism -Continue levothyroxine iv, transition to p.o. soon Hypertension -Treat as needed, restart home meds when able Disposition -Over 40 minutes of critical care time was spent on this ICU encounter - plasmapharesis today LORRAINE WATERMAN Jan 24, 2019 09:19
--- NOTE | 2019-01-24 12:13 | CONS ---
Assessment/Plan Assessment/Plan Hospital Course 53 M w/ recently diagnosed Myasthenia Gravis...who presents for evaluation of dysphagia, dysarthria, and diplopia...for which neurology is consulted. He was notably prescribed IVIG at home x 3 days, and an increased dose of Mestinon in recent days...for management of the same....but has clinically worsened.... As well, he received 10mg iv pyridostigmine x 2 and 10mg iv decadron x 1 upon arrival to [facility] on 01/19....which are likely contributors to continued clinical decline.. The clinical picture is consistent w/ myasthenia gravis exacerbation...which is showing some delayed improvement with plasmapheresis. Head CT is without acute intracranial pathology. s/p 2g/kg course of IVIG on 01/21, with limited improvement in dysphagia.. PLEX started on 01/22 P: Continue plasmapheresis for ~ 5 sessions Transition Mestinon IV to 60mg PO TID for now OK to continue Prednisone 20mg daily for now Glycopyrrolate prn OK.. May resume Cellcept per ops once medication is reconciled.. Neurologically stable for transfer out of ICU.. Will follow clinically Consultation Date/Type/Reason Admit Date/Time Jan 20, 2019 at 02:09 Type of Consult Neurology Requesting Provider: LORRAINE WATERMAN Date/Time of Note DATE: 01/24/19 TIME: 12:13 24 HR Interval Summary Free Text/Dictation Continues critical care. Pt reportedly has much improvement with his dysphagia, but limited improvement with his extraocular eye movements. Still has complaints of double vision. S/p day 2 of plasmapheresis. Exam Vital Signs Vitals Vital Signs Date Temp Pulse Resp B/P (MAP) Pulse Ox O2 O2 Flow FiO2 Time Delivery Rate 01/24/19 85 13 104/72 98 Room Air 11:00 (83) 01/24/19 98.0 08:00 01/23/19 21 03:49 Intake and Output 01/23/19 01/23/19 01/24/19 1515:00 23:00 07:00 IntakeIntake Total 1350 ml 700 ml OutputOutput Total 300 ml 600 ml 500 ml BalanceBalance -300 ml 750 ml 200 ml Exam PE: Gen Appearance: No Apparent Distress HEENT: Normocephalic Cardiovascular: Regular rate Lungs: Clear bilaterally Abdomen: Soft Extremities: Dry NE: The patient was alert and oriented. Speech was dysarthric, though significantly improved. Fund of knowledge was normal. Pupils were equal and reactive to light. There was no afferent pupillary defect. Visual miranda were diminished bilaterally. Funduscopic examination was limited. Extra-ocular movements were limited, bilaterally, in all directions. Ptosis was absent. There was no nystagmus. Facial sensation was normal. Face was symmetric with normal strength. Hearing was intact. Palate movements were normal. Neck strength was normal. There was normal tongue bulk and speed of movement. Tone was normal. Muscle bulk was normal. I did not see fasciculations. Arms and legs were strong to confrontation. Vibration sensation was normal. Temperature and pinprick sensation was normal. Rapid alternating movements were normal. There was no dysmetria. There was no intention tremor. Gait was deferred due to bedrest. Arm and leg reflexes were 2+ and symmetric. Bauer's sign was absent. Plantar responses were flexor. REAGAN DOWNS NP Jan 24, 2019 12:13
[2019-01-24] MEDS: DEXTROSE 5%-0.45% NACL 1,000 ML IV SCH (12:55)
--- NOTE | 2019-01-24 12:59 | CONS ---
Consult Date/Type/Reason Admit Date/Time Jan 20, 2019 at 02:09 Initial Consult Date 01/21/19 Type of Consult Pulmonary Requesting Provider: LORRAINE WATERMAN Date/Time of Note DATE: 01/24/19 TIME: 12:52 Subjective Patient remained stable following plasmapheresis. Less respiratory distress. Objective Vital Signs Date Temp Pulse Resp B/P (MAP) Pulse Ox O2 O2 Flow FiO2 Time Delivery Rate 01/24/19 85 13 104/72 98 Room Air 11:00 (83) 01/24/19 98.0 08:00 01/23/19 21 03:49 Intake and Output 01/23/19 01/23/19 01/24/19 1515:00 23:00 07:00 IntakeIntake Total 1350 ml 700 ml OutputOutput Total 300 ml 600 ml 500 ml BalanceBalance -300 ml 750 ml 200 ml Exam GENERAL: Well-nourished well-developed gentleman comfortable at rest, talking in complete sentences no accessory muscle use VITAL SIGNS: per chart NECK: Supple. No JVD or lymphadenopathy. CARDIAC EXAM: S1, S2. No added sounds or murmurs. CHEST: clear bilaterally, No added sounds, rales or wheezes ABDOMEN: Soft, nontender. No guarding or rebound. EXTREMITIES: No cyanosis, clubbing or edema. NEUROLOGIC: Generalized weakness. Vent Setting Fraction of Inspired Oxygen pe: 21 Results/Medications Result Diagram: 01/24/19 0440 01/24/19 0440 Results 24 hrs Laboratory Tests Test 01/24/19 04:40 White Blood Count 6.0 Red Blood Count 4.31 L Hemoglobin 13.4 L Hematocrit 37.6 L Mean Corpuscular Volume 87.2 Mean Corpuscular Hemoglobin 31.1 Mean Corpuscular Hemoglobin Concent 35.6 Red Cell Distribution Width 11.9 Platelet Count 181 Mean Platelet Volume 10.5 H Immature Granulocytes % 0.300 Neutrophils % 58.7 Lymphocytes % 30.8 Monocytes % 9.3 Eosinophils % 0.7 Basophils % 0.2 Nucleated Red Blood Cells % 0.0 Immature Granulocytes # 0.020 Neutrophils # 3.5 Lymphocytes # 1.9 Monocytes # 0.6 Eosinophils # 0.0 Basophils # 0.0 Nucleated Red Blood Cells # 0.0 Sodium Level 138 Potassium Level 4.2 Chloride Level 109 Carbon Dioxide Level 26 Anion Gap 3 L Blood Urea Nitrogen 12 Creatinine 0.55 L Est Glomerular Filtrat Rate mL/min > 60 Glucose Level 100 Calcium Level 8.8 Phosphorus Level 2.7 Magnesium Level 1.9 Medications Current Medications IV Flush (NS 3 ml) 3 ml PER PROTOCOL IV ; Start 01/20/19 at 02:30 Glycopyrrolate (Robinul) 0.2 mg QID PRN IV SECRETIONS Last administered on 01/22/19at 00:00; Admin Dose 0.2 MG; Start 01/20/19 at 09:00 Levothyroxine Sodium (Synthroid Iv) 56 mcg DAILY IV Last administered on 10/02at 08:33; Admin Dose 56 MCG; Start 01/20/19 at 09:30 Famotidine (Pepcid Iv) 20 mg BID IV Last administered on 01/24/19at 08:48; Admin Dose 20 MG; Start 01/20/19 at 10:30 Hydralazine HCl (Apresoline) 10 mg Q4H PRN IV SBP > 160; Start 01/21/19 at 23:00 Pyridostigmine [place] (Regonol) 2 mg Q3 IV Last administered on 01/24/19at 09:48; Admin Dose 2 MG; Start 01/22/19 at 21:00; Stop 01/24/19 at 15:00 Prednisone (Prednisone) 20 mg DAILY PO Last administered on 01/24/19at 08:32; Admin Dose 20 MG; Start 01/24/19 at 09:00 Pyridostigmine [place] (Mestinon) 60 mg Q8 PO ; Start 01/24/19 at 16:00 Dextrose/Sodium Chloride 1,000 ml @ 50 mls/hr Q20H IV ; Start 01/24/19 at 12:30 Assessment/Plan Hospital Course (Demo Recall) Assessment 1. Acute exacerbation of myasthenia gravis diagnosed 1 month ago. status post IVIG now starting on plasmapheresis. 2. Hypoxemic and hypercapnic respiratory failure secondary to alveolar hypoventilation from above 3. Dysphagia secondary to above patient has been n.p.o. now for 10 days declined nasogastric tube feeding. Plan 1. Continue plasmapheresis, continue steroids 2. Continue speech therapy recommendations and aspiration precautions 3. Continue vital capacity 4. Physical therapy eval Critical care time 40 minutes. transfer to [facility]. BRYSON FARRELL MD, [facility] Jan 24, 2019 12:59
[2019-01-24] MEDS ORDERED: ALBUMIN HUMAN 5% 500ML INJ CATHETER SCH (16:30)
[2019-01-24] MEDS ORDERED: SOD CHLORIDE 0.9% 750 ML IV SCH (16:30)
[2019-01-24] MEDS ORDERED: ALBUMIN HUMAN 5% 250 ML ONE (17:27)
[2019-01-24] MEDS ORDERED: CITRATE DEXTROSE SOLUTION 1,000 ML SOLUTION MC SCH (17:30)
[2019-01-24] MEDS ORDERED: SOD CHLORIDE 0.9% IVPB SCH (17:30)
[2019-01-24] MEDS ORDERED: CALCIUM GLUCONATE IVPB SCH (17:30)
[2019-01-24] MEDS ORDERED: MYCO500T3 PO (19:21)
[2019-01-24] MEDS ORDERED: OMEP20CA16 PO (19:21)
[2019-01-24] MEDS: PYRIDOSTIGMINE 60 MG TAB PO SCH ×2 (20:16→22:17)
[2019-01-25] VITALS (15 sets, daily range): BP systolic 99–151; BP diastolic 69–98; PULSE 66–92; RESP 12–19
[2019-01-25] MEDS: DEXTROSE 5%-0.45% NACL 1,000 ML IV SCH ×2 (05:16→08:26)
[2019-01-25] MEDS: PYRIDOSTIGMINE 60 MG TAB PO SCH ×3 (06:15→21:50)
[2019-01-25] MEDS: predniSONE 20 MG TAB PO SCH (08:27)
[2019-01-25] MEDS: FAMOTIDINE 20 MG INJ IV SCH ×2 (08:27→20:41)
--- NOTE | 2019-01-25 08:36 | PN ---
DATE: 01/25/2019 SUBJECTIVE: The patient was transferred from the intensive care unit to telemetry. The patient curr ently stable. Continues to have weakness but states it is improving. The patient had plasmapheresis yesterday. OBJECTIVE: VITAL SIGNS: Blood pressure is 111/71, pulse 74, temperature 98.2. HEENT: Head is normocephalic. NECK: Supple. HEART: Regular rate. LUNGS: Show diminished breath sounds at the base. ABDOMEN: Soft, nontender to palpation without rebound or guarding. EXTREMITIES: Negative for clubbing, cyanosis, no edema. DERMATOLOGIC: No rashes. MUSCULOSKELETAL: The patient's Jewel catheter site is clean and dry. NEUROLOGIC: No change in ex am. MEDICATIONS: The patient's medications have been reviewed. LABORATORY DATA: Has been reviewed. ASSESSMENT AND PLAN: 1. Myasthenia gravis. The patient is status post IVIG, status post plasmapheresis x3. Will continu e to monitor. We will follow up with neurology if further plasmapheresis as needed. If no further p lasmapheresis as necessary will discontinue Jewel catheter. 2. Hypothyroidism. Continue Synthroid. 3. Hypertension. Continue current blood pressure regimen. 4. Hypoxemic respiratory failure, improved. 5. Dysphagia. Continue modified diet. Dictated By: MARIBELL CARROLL DO NR/NTS Conf#: [id number] DID#: [id number] CC: LORRAINE WATERMAN MD; RICARDO SIMMONS MD; BRYSON FARRELL MD;*EndCC*
[2019-01-25] MEDS: LEVOTHYROXINE 100 MCG VIAL IV SCH ×2 (09:00→09:46)
--- NOTE | 2019-01-25 09:19 | CONS ---
Assessment/Plan Assessment/Plan Hospital Course 53 M w/ recently diagnosed Myasthenia Gravis...who presents for evaluation of dysphagia, dysarthria, and diplopia...for which neurology is consulted. He was notably prescribed IVIG at home x 3 days, and an increased dose of Mestinon in recent days...for management of the same....but has clinically worsened.... As well, he received 10mg iv pyridostigmine x 2 and 10mg iv decadron x 1 upon arrival to [facility] on 01/19....which are likely contributors to continued clinical decline.. The clinical picture is consistent w/ myasthenia gravis exacerbation...which is showing some delayed improvement with plasmapheresis. Head CT is without acute intracranial pathology. s/p 2g/kg course of IVIG on 01/21, with limited improvement in dysphagia.. PLEX started on 01/22 P: Continue plasmapheresis for 2-4 adnl sessions, pending clinical progress Continue Mestinon 60mg PO TID for now OK to continue Prednisone 20mg daily for now Glycopyrrolate prn OK.. May resume Cellcept per ops once medication is reconciled.. Will follow clinically Consultation Date/Type/Reason Admit Date/Time Jan 20, 2019 at 02:09 Type of Consult Neurology Requesting Provider: LORRAINE WATERMAN Date/Time of Note DATE: 01/25/19 TIME: 09:19 24 HR Interval Summary Free Text/Dictation Continues acute care. Exam Vital Signs Vitals Vital Signs Date Temp Pulse Resp B/P (MAP) Pulse Ox O2 O2 Flow FiO2 Time Delivery Rate 01/25/19 98.2 74 16 111/71 96 07:20 (84) 01/25/19 Room Air 04:00 01/23/19 21 03:49 Intake and Output 01/24/19 01/24/19 01/25/19 1515:00 23:00 07:00 IntakeIntake Total 880 ml 717 ml 300 ml OutputOutput Total 1170 ml 620 ml BalanceBalance -290 ml 97 ml 300 ml Exam PE: Gen Appearance: No Apparent Distress HEENT: Normocephalic Cardiovascular: Regular rate Lungs: Clear bilaterally Abdomen: Soft Extremities: Dry NE: The patient was alert and oriented. Speech was slightly dysarthric. Fund of knowledge was normal. Pupils were equal and reactive to light. There was no afferent pupillary defect. Visual miranda were diminished bilaterally, though improved. Funduscopic examination was limited. Extra-ocular movements were limited, bilaterally, though also improved. Ptosis was absent. There was no nystagmus. Facial sensatio n was normal. Face was symmetric with normal strength. Hearing was intact. Palate movements were normal. Neck strength was normal. There was normal tongue bulk and speed of movement. Tone was normal. Muscle bulk was normal. I did not see fasciculations. Arms and legs were strong to confrontation. Vibration sensation was normal. Temperature and pinprick sensation was normal. Rapid alternating movements were normal. There was no dysmetria. There was no intention tremor. Gait was deferred due to bedrest. Arm and leg reflexes were 2+ and symmetric. Bauer's sign was absent. Plantar responses were flexor. REAGAN DOWNS NP Jan 25, 2019 09:19 JOESPH LLAMAS Jan 25, 2019 12:50
--- NOTE | 2019-01-25 10:32 | CONS ---
Consult Date/Type/Reason Admit Date/Time Jan 20, 2019 at 02:09 Initial Consult Date 01/21/19 Type of Consult Pulmonary Requesting Provider: LORRAINE WATERMAN Date/Time of Note DATE: 01/25/19 TIME: 10:31 Subjective Continues to improve with greater neuromuscular strength. Denies shortness of breath. Objective Vital Signs Date Temp Pulse Resp B/P (MAP) Pulse Ox O2 O2 Flow FiO2 Time Delivery Rate 01/25/19 80 16 99 21 09:33 01/25/19 98.2 111/71 07:20 (84) 01/25/19 Room Air 04:00 Intake and Output 01/24/19 01/24/19 01/25/19 1515:00 23:00 07:00 IntakeIntake Total 880 ml 717 ml 300 ml OutputOutput Total 1170 ml 620 ml BalanceBalance -290 ml 97 ml 300 ml Exam GENERAL: Well-nourished well-developed gentleman comfortable at rest, talking in complete sentences no accessory muscle use VITAL SIGNS: per chart NECK: Supple. No JVD or lymphadenopathy. CARDIAC EXAM: S1, S2. No added sounds or murmurs. CHEST: clear bilaterally, No added sounds, rales or wheezes ABDOMEN: Soft, nontender. No guarding or rebound. EXTREMITIES: No cyanosis, clubbing or edema. NEUROLOGIC: Generalized weakness. Vent Setting Fraction of Inspired Oxygen pe: 21 Results/Medications Result Diagram: 01/25/19 0542 01/25/19 0542 Results 24 hrs Laboratory Tests Test 01/25/19 05:42 White Blood Count 6.3 Red Blood Count 4.29 L Hemoglobin 13.1 L Hematocrit 37.6 L Mean Corpuscular Volume 87.6 Mean Corpuscular Hemoglobin 30.5 Mean Corpuscular Hemoglobin Concent 34.8 Red Cell Distribution Width 12.5 Platelet Count 181 Mean Platelet Volume 10.6 H Immature Granulocytes % 0.500 H Neutrophils % 54.1 Lymphocytes % 33.4 Monocytes % 11.0 Eosinophils % 0.8 Basophils % 0.2 Nucleated Red Blood Cells % 0.0 Immature Granulocytes # 0.030 Neutrophils # 3.4 Lymphocytes # 2.1 Monocytes # 0.7 Eosinophils # 0.1 Basophils # 0.0 Nucleated Red Blood Cells # 0.0 Sodium Level 137 Potassium Level 4.0 Chloride Level 106 Carbon Dioxide Level 23 Anion Gap 8 Blood Urea Nitrogen 16 Creatinine 0.71 Est Glomerular Filtrat Rate mL/min > 60 Glucose Level 150 Calcium Level 9.0 Phosphorus Level 3.4 Magnesium Level 1.8 Medications Current Medications IV Flush (NS 3 ml) 3 ml PER PROTOCOL IV ; Start 01/20/19 at 02:30 Glycopyrrolate (Robinul) 0.2 mg QID PRN IV SECRETIONS Last administered on 01/22/19at 00:00; Admin Dose 0.2 MG; Start 01/20/19 at 09:00 Levothyroxine Sodium (Synthroid Iv) 56 mcg DAILY IV Last administered on 01/25/19 09:46; Admin Dose 56 MCG; Start 01/20/19 at 09:30 Famotidine (Pepcid Iv) 20 mg BID IV Last administered on 01/25/19 08:27; Admin Dose 20 MG; Start 01/20/19 at 10:30 Hydralazine HCl (Apresoline) 10 mg Q4H PRN IV SBP > 160; Start 01/21/19 at 23:00 Prednisone (Prednisone) 20 mg DAILY PO Last administered on 01/25/19at 08:27; Admin Dose 20 MG; Start 01/24/19 at 09:00 Pyridostigmine [place] (Mestinon) 60 mg Q8 PO Last administered on 01/25/19 06:15; Admin Dose 60 MG; Start 01/24/19 at 16:00 Dextrose/Sodium Chloride 1,000 ml @ 50 mls/hr Q20H IV Last administered on 01/25/19at 05:16; Admin Dose 50 MLS/HR; Start 01/24/19 at 12:30 Assessment/Plan Hospital Course (Demo Recall) Assessment 1. Acute exacerbation of myasthenia gravis diagnosed 1 month ago. Status post IVIG and plasmapheresis. 2. Hypoxemic and hypercapnic respiratory failure secondary to alveolar hypoventilation from above respiratory status now stable 3. Dysphagia secondary to above patient now tolerating p.o. diet. Plan 1. Continue plasmapheresis, continue steroids per neurology. 2. Continue speech therapy recommendations and aspiration precautions 3. DC vital capacity 4. Physical therapy eval We will follow as needed. BRYSON FARRELL MD, [facility] Jan 25, 2019 10:32
--- NOTE | 2019-01-25 14:58 | PN ---
Date/Time of Note Date/Time of Note DATE: 01/25/19 TIME: 14:57 Objective Vitals Vital Signs Date Temp Pulse Resp B/P (MAP) Pulse Ox O2 O2 Flow FiO2 Time Delivery Rate 01/25/19 80 12:00 01/25/19 98.6 19 118/75 95 11:20 (89) 01/25/19 21 09:33 01/25/19 Room Air 04:00 Intake and Output 01/24/19 01/24/19 01/25/19 1515:00 23:00 07:00 IntakeIntake Total 880 ml 717 ml 300 ml OutputOutput Total 1170 ml 620 ml BalanceBalance -290 ml 97 ml 300 ml Results Result Diagram: 01/25/19 0542 01/25/19 0542 Medications Medications Current Medications IV Flush (NS 3 ml) 3 ml PER PROTOCOL IV ; Start 01/20/19 at 02:30 Glycopyrrolate (Robinul) 0.2 mg QID PRN IV SECRETIONS Last administered on 01/22/19at 00:00; Admin Dose 0.2 MG; Start 01/20/19 at 09:00 Levothyroxine Sodium (Synthroid Iv) 56 mcg DAILY IV Last administered on 01/25/19at 09:46; Admin Dose 56 MCG; Start 01/20/19 at 09:30 Famotidine (Pepcid Iv) 20 mg BID IV Last administered on 01/25/19at 08:27; Admin Dose 20 MG; Start 01/20/19 at 10:30 Hydralazine HCl (Apresoline) 10 mg Q4H PRN IV SBP > 160; Start 01/21/19 at 23:00 Prednisone (Prednisone) 20 mg DAILY PO Last administered on 01/25/19at 08:27; Admin Dose 20 MG; Start 01/24/19 at 09:00 Pyridostigmine [place] (Mestinon) 60 mg Q8 PO Last administered on 01/25/19at 14:39; Admin Dose 60 MG; Start 01/24/19 at 16:00 Dextrose/Sodium Chloride 1,000 ml @ 50 mls/hr Q20H IV Last administered on 01/25/19at 05:16; Admin Dose 50 MLS/HR; Start 01/24/19 at 12:30 VTE Prophylaxis Risk score (from Nsg)>0 risk: 6 SCD applied (from Nsg): Yes Lines/Catheters IV Catheter Type: Ordonez in Place: No Assessment/Plan Hospital Course Subjective Patient symptoms have improved mildly Objective Physical exam General: Patient is laying in bed and answers questions appropriately Mentation: Patient is alert and oriented 4, Head: Normocephalic atraumatic Eyes: EOMI, pupils reactive to light Neck: Supple, nontender, midline Respiratory: Coarse to auscultation bilaterally Cardiovascular: regular rate, no obvious murmurs Gastrointestinal: non-tender to palpation, bowel sounds heard. Neurological: Moves all extremities spontaneously, muscle strength is 5 out of 5 in left upper and lower extremity, 4 out of 5 in right upper and lower extremity Skin: No new skin lesions Assessment and plan Myasthenic crisis versus other autoimmune issue -Failed IVIG, plasmapheresis initiated -Nephrology consulted for plasmapheresis -Continue all IV medications for now per neurology recommendations, -Neurology recognitions appreciated, -Plasmapheresis initiated 01/22/19, current plan is to finish 5 doses. tomorrow is last dose Hypothyroidism -Continue levothyroxine iv, transition to p.o. soon Hypertension -Treat as needed, restart home meds when able Disposition - plasmapharesis today LORRAINE WATERMAN Jan 25, 2019 14:58
[2019-01-26] VITALS (11 sets, daily range): BP systolic 101–121; BP diastolic 58–73; PULSE 65–76; RESP 17–20
[2019-01-26] MEDS: DEXTROSE 5%-0.45% NACL 1,000 ML IV SCH ×2 (01:00→21:25)
[2019-01-26] MEDS: PYRIDOSTIGMINE 60 MG TAB PO SCH ×3 (06:01→21:21)
[2019-01-26] MEDS: LEVOTHYROXINE 100 MCG VIAL IV SCH (08:21)
[2019-01-26] MEDS: predniSONE 20 MG TAB PO SCH (08:21)
[2019-01-26] MEDS: FAMOTIDINE 20 MG INJ IV SCH ×2 (08:22→21:21)
--- NOTE | 2019-01-26 08:31 | PN ---
DATE: 01/26/2019 SUBJECTIVE: The patient is stable. No events overnight. I spoke with neurologist, Dr. Garcia, who r ecommends 2 more sessions of plasmapheresis. OBJECTIVE: VITAL SIGNS: Blood pressure is 121/73, respirations 17, pulse 69, temperature 97.7. HEENT: Head is normocephalic. NECK: Supple. HEART: Regular rate. LUNGS: Diminished breath sounds at the base. ABDOMEN: Soft, nontender to palpation without rebound or guarding. EXTREMITIES: Negative for clubbing, cyanosis, no edema. DERMATOLOGIC: No rashes. MUSCULOSKELETAL: No joint effusions. NEUROLOGIC: No change in exam. MEDICATIONS: Reviewed. LABORATORY DATA: From 01/26/2019 was reviewed. ASSESSMENT AND PLAN: 1. Myasthenia gravis. The patient is status post IVIG, status post 3 sessions of plasmapheresis. P er neurology, recommendation for 2 more sessions has been made. Will order plasmapheresis. Will hav e 1.5% exchange of plasma volume with approximately 2/3 replacement fluid of 5% albumin and 1/3 sherri l saline. Will give 3 to 4 grams of elemental calcium. 2. Hypothyroidism. Continue Synthroid. 3. Hypertension. Continue current blood pressure regimen. 4. Hypoxemic respiratory failure, improved. 5. Dysphagia. Continue modified diet. Dictated By: MARIBELL CARROLL DO NR/NTS Conf#: [id number] DID#: [id number] CC: RICARDO SIMMONS MD;*EndCC*
--- NOTE | 2019-01-26 11:11 | CONS ---
Assessment/Plan Assessment/Plan Hospital Course 53 M w/ recently diagnosed Myasthenia Gravis...who presents for evaluation of dysphagia, dysarthria, and diplopia...for which neurology is consulted. He was notably prescribed IVIG at home x 3 days, and an increased dose of Mestinon in recent days...for management of the same....but has clinically worsened.... As well, he received 10mg iv pyridostigmine x 2 and 10mg iv decadron x 1 upon arrival to [facility] on 01/19....which are likely contributors to continued clinical decline.. The clinical picture is consistent w/ myasthenia gravis exacerbation...which is showing some delayed improvement with plasmapheresis. Head CT is without acute intracranial pathology. s/p 2g/kg course of IVIG on 01/21, with limited improvement in dysphagia.. PLEX started on 01/22 P: Continue plasmapheresis for 2-4 adnl sessions, pending clinical progress Continue Mestinon 60mg PO TID for now OK to continue Prednisone 20mg daily for now Glycopyrrolate prn OK.. May resume Cellcept per ops once medication is reconciled.. Will follow clinically Consultation Date/Type/Reason Admit Date/Time Jan 20, 2019 at 02:09 Type of Consult Neurology Requesting Provider: LORRAINE WATERMAN Date/Time of Note DATE: 01/26/19 TIME: 11:11 24 HR Interval Summary Free Text/Dictation Continues acute care. Plasmapheresis scheduled for today. Exam Vital Signs Vitals Vital Signs Date Temp Pulse Resp B/P (MAP) Pulse Ox O2 O2 Flow FiO2 Time Delivery Rate 01/26/19 74 08:00 01/26/19 97.7 17 121/73 96 07:16 (89) 01/25/19 21 09:33 01/25/19 Room Air 04:00 Intake and Output 01/25/19 01/25/19 01/26/19 1515:00 23:00 07:00 IntakeIntake Total 700 ml 300 ml OutputOutput Total 3 ml 300 ml BalanceBalance 697 ml 0 ml Exam PE: Gen Appearance: No Apparent Distress HEENT: Normocephalic Cardiovascular: Regular rate Lungs: Clear bilaterally Abdomen: Soft Extremities: Dry NE: The patient was alert and oriented. Speech was normal. Fund of knowledge was normal. Pupils were equal and reactive to light. There was no afferent pupillary defect. Visual miranda were diminished bilaterally, though improved. Funduscopic examination was limited. Extra-ocular movements were limited, bilaterally, though also improved. Ptosis was absent. There was no nystagmus. Facial sensation was normal. Face was symmetric with normal strength. Hearing was intact. Palate movements were normal. Neck strength was normal. There was normal tongue bulk and speed of movement. Tone was normal. Muscle bulk was normal. I did not see fasciculations. Arms and legs were strong to confrontation. Vibration sensation was normal. Temperature and pinprick sensation was normal. Rapid alternating movements were normal. There was no dysmetria. There was no intention tremor. Gait was deferred due to bedrest. Arm and leg reflexes were 2+ and symmetric. Bauer's sign was absent. Plantar responses were flexor. REAGAN DOWNS NP Jan 26, 2019 11:11
--- NOTE | 2019-01-26 12:01 | CONS ---
Consult Date/Type/Reason Admit Date/Time Jan 20, 2019 at 02:09 Initial Consult Date 01/21/19 Type of Consult Pulmonary Requesting Provider: LORRAINE WATERMAN Date/Time of Note DATE: 01/26/19 TIME: 12:00 Subjective Slowly improving. Still has significant ocular muscle weakness. Objective Vital Signs Date Temp Pulse Resp B/P (MAP) Pulse Ox O2 O2 Flow FiO2 Time Delivery Rate 01/26/19 98.4 70 18 101/60 97 11:32 (74) 01/25/19 21 09:33 01/25/19 Room Air 04:00 Intake and Output 01/25/19 01/25/19 01/26/19 1515:00 23:00 07:00 IntakeIntake Total 700 ml 300 ml OutputOutput Total 3 ml 300 ml BalanceBalance 697 ml 0 ml Exam GENERAL: Well-nourished well-developed gentleman comfortable at rest, talking in complete sentences no accessory muscle use VITAL SIGNS: per chart NECK: Supple. No JVD or lymphadenopathy. CARDIAC EXAM: S1, S2. No added sounds or murmurs. CHEST: clear bilaterally, No added sounds, rales or wheezes ABDOMEN: Soft, nontender. No guarding or rebound. EXTREMITIES: No cyanosis, clubbing or edema. NEUROLOGIC: Generalized weakness. Vent Setting Fraction of Inspired Oxygen pe: 21 Results/Medications Result Diagram: 01/26/19 0513 01/26/19 0513 Results 24 hrs Laboratory Tests Test 01/26/19 05:13 White Blood Count 5.3 Red Blood Count 3.76 L Hemoglobin 11.6 L Hematocrit 32.8 L Mean Corpuscular Volume 87.2 Mean Corpuscular Hemoglobin 30.9 Mean Corpuscular Hemoglobin Concent 35.4 Red Cell Distribution Width 12.2 Platelet Count 166 Mean Platelet Volume 11.0 H Immature Granulocytes % 0.200 Neutrophils % 47.2 Lymphocytes % 42.5 Monocytes % 8.6 Eosinophils % 1.1 Basophils % 0.4 Nucleated Red Blood Cells % 0.0 Immature Granulocytes # 0.010 Neutrophils # 2.5 Lymphocytes # 2.3 Monocytes # 0.5 Eosinophils # 0.1 Basophils # 0.0 Nucleated Red Blood Cells # 0.0 Sodium Level 138 Potassium Level 3.7 Chloride Level 104 Carbon Dioxide Level 29 Anion Gap 5 Blood Urea Nitrogen 12 Creatinine 0.67 Est Glomerular Filtrat Rate mL/min > 60 Glucose Level 81 # Calcium Level 8.8 Phosphorus Level 3.1 Magnesium Level 1.9 Medications Current Medications IV Flush (NS 3 ml) 3 ml PER PROTOCOL IV ; Start 01/20/19 at 02:30 Glycopyrrolate (Robinul) 0.2 mg QID PRN IV SECRETIONS Last administered on 01/22/19at 00:00; Admin Dose 0.2 MG; Start 01/20/19 at 09:00 Levothyroxine Sodium (Synthroid Iv) 56 mcg DAILY IV Last administered on 01/26/19 08:21; Admin Dose 56 MCG; Start 01/20/19 at 09:30 Famotidine (Pepcid Iv) 20 mg BID IV Last administered on 01/26/19 08:22; Admin Dose 20 MG; Start 01/20/19 at 10:30 Hydralazine HCl (Apresoline) 10 mg Q4H PRN IV SBP > 160; Start 01/21/19 at 23:00 Prednisone (Prednisone) 20 mg DAILY PO Last administered on 01/26/19at 08:21; A dmin Dose 20 MG; Start 01/24/19 at 09:00 Pyridostigmine [place] (Mestinon) 60 mg Q8 PO Last administered on 01/26/19 06:01; Admin Dose 60 MG; Start 01/24/19 at 16:00 Dextrose/Sodium Chloride 1,000 ml @ 50 mls/hr Q20H IV Last administered on 01/26/19 01:00; Admin Dose 50 MLS/HR; Start 01/24/19 at 12:30 Assessment/Plan Hospital Course (Demo Recall) Assessment 1. Acute exacerbation of myasthenia gravis diagnosed 1 month ago. Status post IVIG and plasmapheresis. 2. Hypoxemic and hypercapnic respiratory failure secondary to alveolar hypoventilation from above respiratory status now stable 3. Dysphagia secondary to above patient now tolerating p.o. diet. Plan 1. Continue plasmapheresis, continue steroids per neurology. 2. Continue speech therapy recommendations and aspiration precautions 3. DC vital capacity 4. Physical therapy eval Consider acute rehab. BRYSON FARRELL MD, [facility] Jan 26, 2019 12:01
--- NOTE | 2019-01-26 14:32 | PN ---
Date/Time of Note Date/Time of Note DATE: 01/26/19 TIME: 14:31 Objective Vitals Vital Signs Date Temp Pulse Resp B/P (MAP) Pulse Ox O2 O2 Flow FiO2 Time Delivery Rate 01/26/19 65 12:00 01/26/19 98.4 18 101/60 97 11:32 (74) 01/25/19 21 09:33 01/25/19 Room Air 04:00 Intake and Output 01/25/19 01/25/19 01/26/19 1515:00 23:00 07:00 IntakeIntake Total 700 ml 300 ml OutputOutput Total 3 ml 300 ml BalanceBalance 697 ml 0 ml Results Result Diagram: 01/26/1951201/26/19512 Medications Medications Current Medications IV Flush (NS 3 ml) 3 ml PER PROTOCOL IV ; Start 01/20/19 at 02:30 Glycopyrrolate (Robinul) 0.2 mg QID PRN IV SECRETIONS Last administered on 01/22/19at 00:00; Admin Dose 0.2 MG; Start 01/20/19 at 09:00 Levothyroxine Sodium (Synthroid Iv) 56 mcg DAILY IV Last administered on 01/26/19at 08:21; Admin Dose 56 MCG; Start 01/20/19 at 09:30 Famotidine (Pepcid Iv) 20 mg BID IV Last administered on 01/26/19at 08:22; Admin Dose 20 MG; Start 01/20/19 at 10:30 Hydralazine HCl (Apresoline) 10 mg Q4H PRN IV SBP > 160; Start 01/21/19 at 23:00 Prednisone (Prednisone) 20 mg DAILY PO Last administered on 01/26/19at 08:21; Admin Dose 20 MG; Start 01/24/19 at 09:00 Pyridostigmine [place] (Mestinon) 60 mg Q8 PO Last administered on 01/26/19at 13:05; Admin Dose 60 MG; Start 01/24/19 at 16:00 Dextrose/Sodium Chloride 1,000 ml @ 50 mls/hr Q20H IV Last administered on 01/26/19at 01:00; Admin Dose 50 MLS/HR; Start 01/24/19 at 12:30 VTE Prophylaxis Risk score (from Nsg)>0 risk: 3 SCD applied (from Nsg): Yes Lines/Catheters IV Catheter Type: Ordonez in Place: No Assessment/Plan Hospital Course Subjective Patient symptoms continue to improve daily Objective Physical exam General: Patient is laying in bed and answers questions appropriately Mentation: Patient is alert and oriented 4, Head: Normocephalic atraumatic Eyes: EOMI, pupils reactive to light Neck: Supple, nontender, midline Respiratory: Coarse to auscultation bilaterally Cardiovascular: regular rate, no obvious murmurs Gastrointestinal: non-tender to palpation, bowel sounds heard. Neurological: Moves all extremities spontaneously, muscle strength is 5 out of 5 in left upper and lower extremity, 5 out of 5 in his right upper extremity, 4 out of 5 in his right lower extremity Skin: No new skin lesions Assessment and plan Myasthenic crisis versus other autoimmune issue -Failed IVIG, plasmapheresis initiated -Nephrology consulted for plasmapheresis -Continue all IV medications for now per neurology recommendations, -Neurology recognitions appreciated, -Plasmapheresis initiated 01/22/19, current plan is to finish 5 doses. Will reassess tomorrow, will touch base with neurology for further plans Hypothyroidism -Continue levothyroxine iv, transition to p.o. soon Hypertension -Treat as needed, restart home meds when able Disposition - plasmapharesis today LORRAINE WATERMAN Jan 26, 2019 14:32
[2019-01-27] VITALS (12 sets, daily range): BP systolic 101–133; BP diastolic 62–83; PULSE 62–84; RESP 16–20
[2019-01-27] MEDS: LEVOTHYROXINE 112 MCG TAB PO SCH (06:01)
[2019-01-27] MEDS: PYRIDOSTIGMINE 60 MG TAB PO SCH ×3 (06:01→21:04)
[2019-01-27] MEDS: predniSONE 20 MG TAB PO SCH (08:29)
[2019-01-27] MEDS: FAMOTIDINE 20 MG INJ IV SCH ×2 (08:29→21:04)
--- NOTE | 2019-01-27 08:43 | PN ---
DATE: 01/27/2019 SUBJECTIVE: The patient is scheduled for plasmapheresis today. No other events noted. OBJECTIVE: VITAL SIGNS: Blood pressure is 133/83, pulse 62, temperature 97.8. HEENT: Head is normocephalic. NECK: Supple. HEART: Regular rate. LUNGS: Show diminished breath sounds at the base. ABDOMEN: Soft, nontender to palpation without rebound or guarding. EXTREMITIES: Negative for clubbing, cyanosis, no edema. DERMATOLOGIC: No rashes. MUSCULOSKELETAL: No joint effusion. NEUROLOGIC: No change in exam. MEDICATIONS: Reviewed. LABORATORY DATA: Reviewed. ASSESSMENT AND PLAN: 1. Myasthenia gravis crisis. The patient is status post IVIG. The patient is status post 3 session s of plasmapheresis. Anticipate 2 more sessions. Next session will be today. We will have a plasma volume exchange of 1.5 plasma volume with the replacement fluid of 2/3 5% albumin and 1/3 normal jose ine. We will give 3 to 4 grams of an elemental calcium. Continue to monitor electrolytes closely. 2. Hypothyroidism. Continue Synthroid. 3. Hypertension. Continue current blood pressure regimen. 4. Acute hypoxemic respiratory failure, improved. 5. Dysphagia. Continue modified diet. Dictated By: MARIEBLL CARROLL DO NR/NTS Conf#: [id number] DID#: [id number] CC: LORRAINE WATERMAN MD; BRYSON FARRELL MD; RICARDO SIMMONS MD;*End*
--- NOTE | 2019-01-27 09:28 | CONS ---
Assessment/Plan Assessment/Plan Assessment/Plan (Daily) Assessment and recommendations; 1. Patient admitted with myasthenia gravis crisis with significant interval improvement. 2. Dysphagia with interval improvement as well. 3. History of hypothyroidism. Continue current supportive care. Consultation Date/Type/Reason Admit Date/Time Jan 20, 2019 at 02:09 Initial Consult Date 01/20/19 Type of Consult Pulmonary/critical care Patient is a pleasant 53-year-old male who came into the hospital with complaints of weakness and shortness of breath. Patient does have history of m yasthenia gravis diagnosed about a month ago patient also had low vital capacity and was admitted to ICU and started on immunoglobulin as well as pyridostigmine with significant improvement in symptoms. By the time I saw him, patient sitting in a chair at bedside and denies any shortness of breath, any coughing, wheezing, sputum production. Past medical history; 1. History of myasthenia gravis diagnosed recently about a month ago. No history of any thymectomy. 2. History of hypothyroidism and hypertension. Medications; reviewed. Allergies; none. Social history; noncontributory. Family history; noncontributory. Occupational history; patient is disabled. Review of systems; denies any headache, visual changes, seizures. Shortness of breath is improving. Complains of minimal chest congestion. Denies any abdominal pain, complains of mild dysphagia. Denies any nausea vomiting, any fever chills, any urinary symptoms. Any edema orthopnea. General exam; middle-aged male, awake alert, currently in no distress. Requesting Provider: LORRAINE WATERMAN Date/Time of Note DATE: 01/27/19 TIME: 09:26 24 HR Interval Summary Free Text/Dictation Patient's condition is continually improving. Denies any shortness of breath, chest pain, any dysphagia. General exam; middle-aged male, awake alert, having breakfast at bedside. Exam/Review of Systems Exam Vitals Vital Signs Date Temp Pulse Resp B/P (MAP) Pulse Ox O2 O2 Flow FiO2 Time Delivery Rate 01/27/19 70 08:01 01/27/19 97.8 20 133/83 99 07:18 (100) 01/25/19 21 09:33 01/25/19 Room Air 04:00 Intake and Output 01/26/19 01/26/19 01/27/19 1515:00 23:00 07:00 IntakeIntake Total 840 ml 200 ml OutputOutput Total 1150 ml 500 ml BalanceBalance -310 ml -300 ml Exam HEENT exam; supple neck, no JVD. No lymphadenopathy. Midline trachea. No thyromegaly. Pharynx is clear. No neck bruits. Patient has good dentition. Chest exam; clear to auscultation. S1-S2 audible, no murmurs. Regular rhythm. Abdomen exam; soft, no organomegaly. Bowel sounds audible. Extremity exam; no peripheral edema clubbing. MEDICAL BILLING ASSISTANT exam; no focal deficit. Results Result Diagram: 01/27/199 01/27/19 0459 Results 24hrs Laboratory Tests Test 01/27/19 04:59 White Blood Count 5.6 Red Blood Count 3.49 L Hemoglobin 10.9 L Hematocrit 30.7 L Mean Corpuscular Volume 88.0 Mean Corpuscular Hemoglobin 31.2 Mean Corpuscular Hemoglobin Concent 35.5 Red Cell Distribution Width 12.3 Platelet Count 162 Mean Platelet Volume 10.5 H Immature Granulocytes % 0.200 Neutrophils % 52.9 Lymphocytes % 37.5 Monocytes % 8.5 Eosinophils % 0.5 Basophils % 0.4 Nucleated Red Blood Cells % 0.0 Immature Granulocytes # 0.010 Neutrophils # 3.0 Lymphocytes # 2.1 Monocytes # 0.5 Eosinophils # 0.0 Basophils # 0.0 Nucleated Red Blood Cells # 0.0 Sodium Level 138 Potassium Level 3.5 Chloride Level 99 Carbon Dioxide Level 34 H Anion Gap 5 Blood Urea Nitrogen 14 Creatinine 0.65 Est Glomerular Filtrat Rate mL/min > 60 Glucose Level 83 Calcium Level 8.6 Phosphorus Level 3.5 Magnesium Level 2.0 Medications Medication Current Medications IV Flush (NS 3 ml) 3 ml PER PROTOCOL IV ; Start 01/20/19 at 02:30 Glycopyrrolate (Robinul) 0.2 mg QID PRN IV SECRETIONS Last administered on 01/22/19at 00:00; Admin Dose 0.2 MG; Start 01/20/19 at 09:00 Famotidine (Pepcid Iv) 20 mg BID IV Last administered on 01/27/19at 08:29; Admin Dose 20 MG; Start 01/20/19 at 10:30 Hydralazine HCl (Apresoline) 10 mg Q4H PRN IV SBP > 160; Start 01/21/19 at 23:00 Prednisone (Prednisone) 20 mg DAILY PO Last administered on 01/27/19at 08:29; Admin Dose 20 MG; Start 01/24/19 at 09:00 Pyridostigmine [place] (Mestinon) 60 mg Q8 PO Last administered on 01/27/19at 06:01; Admin Dose 60 MG; Start 01/24/19 at 16:00 Dextrose/Sodium Chloride 1,000 ml @ 50 mls/hr Q20H IV Last administered on 01/26/19at 21:25; Admin Dose 50 MLS/HR; Start 01/24/19 at 12:30 Levothyroxine Sodium (Synthroid) 112 mcg DAILY@06 PO Last administered on 01/27/19at 06:01; Admin Dose 112 MCG; Start 01/27/19 at 06:00 Citrate Phosphate Dextrose (Acd-A) 1,000 ml ONCE ONCE MC ; Start 01/27/19 at 10:00; Stop 01/27/19 at 10:01 Albumin Human (Alburx) 4,000 ml ONCE CATHETER ; Start 01/27/19 at 10:00; Stop 01/27/19 at 10:01 Calcium Gluconate 3 gm/Dextrose 280 ml @ 60 mls/hr ONCE ONCE IVPB ; Start 01/27/19 at 10:00; Stop 01/27/19 at 14:39 JOSE JUAN WELLS Jan 27, 2019 09:28
[2019-01-27] MEDS ORDERED: DEXTROSE 5% IVPB ONE (10:00)
[2019-01-27] MEDS ORDERED: ALBUMIN HUMAN 5% 500ML INJ CATHETER SCH (10:00)
[2019-01-27] MEDS ORDERED: CITRATE DEXTROSE SOLUTION 1,000 ML SOLUTION MC ONE (10:00)
[2019-01-27] MEDS ORDERED: CALCIUM GLUCONATE IVPB ONE (10:00)
--- NOTE | 2019-01-27 11:15 | CONS ---
Assessment/Plan Assessment/Plan Hospital Course 53 M w/ recently diagnosed Myasthenia Gravis...who presents for evaluation of dysphagia, dysarthria, and diplopia...for which neurology is consulted. He was notably prescribed IVIG at home x 3 days, and an increased dose of Mestinon in recent days...for management of the same....but has clinically worsened.... As well, he received 10mg iv pyridostigmine x 2 and 10mg iv decadron x 1 upon arrival to [facility] on 01/19....which are likely contributors to continued clinical decline.. The clinical picture is consistent w/ myasthenia gravis exacerbation...which is showing some delayed improvement with plasmapheresis. Head CT is without acute intracranial pathology. s/p 2g/kg course of IVIG on 01/21, with limited improvement in dysphagia.. PLEX started on 01/22 P: Continue plasmapheresis for 1-3 adnl sessions, pending clinical progress Continue Mestinon 60mg PO TID for now OK to continue Prednisone 20mg daily for now Glycopyrrolate prn OK.. May resume Cellcept per ops once medication is reconciled.. Will follow clinically Consultation Date/Type/Reason Admit Date/Time Jan 20, 2019 at 02:09 Type of Consult Neurology Requesting Provider: LORRAINE WATERMAN Date/Time of Note DATE: 01/27/19 TIME: 11:13 24 HR Interval Summary Free Text/Dictation Continues acute care. Pt states that his vision is slightly better than yesterday. Currently receiving his 4th session of plasmapheresis. Exam Vital Signs Vitals Vital Signs Date Temp Pulse Resp B/P (MAP) Pulse Ox O2 O2 Flow FiO2 Time Delivery Rate 01/27/19 70 08:01 01/27/19 97.8 20 133/83 99 07:18 (100) 01/25/19 21 09:33 01/25/19 Room Air 04:00 Intake and Output 01/26/19 01/26/19 01/27/19 1515:00 23:00 07:00 IntakeIntake Total 840 ml 200 ml OutputOutput Total 1150 ml 500 ml BalanceBalance -310 ml -300 ml Exam PE: Gen Appearance: No Apparent Distress HEENT: Normocephalic Cardiovascular: Regular rate Lungs: Clear bilaterally Abdomen: Soft Extremities: Dry NE: The patient was alert and oriented. Speech was normal. Fund of knowledge was normal. Pupils were equal and reactive to light. There was no afferent pupillary defect. Visual miranda were diminished bilaterally, though improved. Funduscopic examination was limited. Extra-ocular movements were limited bilaterally, though stable from prior. Ptosis was absent. There was no nystagmus. Facial sensation was normal. Face was symmetric with normal strength. Hearing was intact. Palate movements were normal. Neck strength was normal. There was normal tongue bulk and speed of movement. Tone was normal. Muscle bulk was normal. I did not see fasciculations. Arms and legs were strong to confrontation. Vibration sensation was normal. Temperature and pinprick sensation was normal. Rapid alternating movements were normal. There was no dysmetria. There was no intention tremor. Gait was deferred due to bedrest. Arm and leg reflexes were 2+ and symmetric. Bauer's sign was absent. Plantar responses were flexor. REAGAN DOWNS NP Jan 27, 2019 11:15
--- NOTE | 2019-01-27 11:35 | PN ---
Date/Time of Note Date/Time of Note DATE: 01/27/19 TIME: 11:34 Objective Vitals Vital Signs Date Temp Pulse Resp B/P (MAP) Pulse Ox O2 O2 Flow FiO2 Time Delivery Rate 01/27/19 98.7 80 20 120/78 95 11:22 (92) 01/25/19 21 09:33 01/25/19 Room Air 04:00 Intake and Output 01/26/19 01/26/19 01/27/19 1515:00 23:00 07:00 IntakeIntake Total 840 ml 200 ml OutputOutput Total 1150 ml 500 ml BalanceBalance -310 ml -300 ml Results Result Diagram: 01/27/19 0459 01/27/19 0459 Medications Medications Current Medications IV Flush (NS 3 ml) 3 ml PER PROTOCOL IV ; Start 01/20/19 at 02:30 Glycopyrrolate (Robinul) 0.2 mg QID PRN IV SECRETIONS Last administered on 01/22/19at 00:00; Admin Dose 0.2 MG; Start 01/20/19 at 09:00 Famotidine (Pepcid Iv) 20 mg BID IV Last administered on 01/27/19at 08:29; Admin Dose 20 MG; Start 01/20/19 at 10:30 Hydralazine HCl (Apresoline) 10 mg Q4H PRN IV SBP > 160; Start 01/21/19 at 23:00 Prednisone (Prednisone) 20 mg DAILY PO Last administered on 01/27/19 08:29; Admin Dose 20 MG; Start 01/24/19 at 09:00 Pyridostigmine [place] (Mestinon) 60 mg Q8 PO Last administered on 01/27/19at 06:01; Admin Dose 60 MG; Start 01/24/19 at 16:00 Dextrose/Sodium Chloride 1,000 ml @ 50 mls/hr Q20H IV Last administered on 01/26/19at 21:25; Admin Dose 50 MLS/HR; Start 01/24/19 at 12:30 Levothyroxine Sodium (Synthroid) 112 mcg DAILY@06 PO Last administered on 01/27/19at 06:01; Admin Dose 112 MCG; Start 01/27/19 at 06:00 Calcium Gluconate 3 gm/Dextrose 280 ml @ 60 mls/hr ONCE ONCE IVPB Last administered on 01/27/19at 10:49; Admin Dose 60 MLS/HR; Start 01/27/19 at 10:00; Stop 01/27/19 at 14:39 VTE Prophylaxis Risk score (from Ns)>0 risk: 2 SCD applied (from Ns): Yes Lines/Catheters IV Catheter Type: Ordonez in Place: No Assessment/Plan Hospital Course Subjective Patient symptoms continue to improve daily Objective Physical exam General: Patient is laying in bed and answers questions appropriately Mentation: Patient is alert and oriented 4, Head: Normocephalic atraumatic Eyes: EOMI, pupils reactive to light Neck: Supple, nontender, midline Respiratory: Coarse to auscultation bilaterally Cardiovascular: regular rate, no obvious murmurs Gastrointestinal: non-tender to palpation, bowel sounds heard. Neurological: Moves all extremities spontaneously, muscle strength is 5 out of 5 in left upper and lower extremity, 5 out of 5 in his right upper extremity, 4 out of 5 in his right lower extremity Skin: No new skin lesions Assessment and plan Myasthenic crisis versus other autoimmune issue -Failed IVIG, plasmapheresis initiated -Nephrology consulted for plasmapheresis -Continue all IV medications for now per neurology recommendations, -Neurology recognitions appreciated, -Plasmapheresis initiated 01/22/19, was unable to get plasmapharesis yesterday due to inability to obtain a plasmapheresis nurse., current plan is to get plasmapharesis today. Will reassess tomorrow, will touch base with neurology for further plans Hypothyroidism -Continue levothyroxine Hypertension -Treat as needed, restart home meds when able Disposition - plasmapharesis today LORRAINE WATERMAN Jan 27, 2019 11:35
[2019-01-27] MEDS: DEXTROSE 5%-0.45% NACL 1,000 ML IV SCH (21:04)
[2019-01-28] VITALS (12 sets, daily range): BP systolic 102–117; BP diastolic 60–79; PULSE 58–90; RESP 18–21
[2019-01-28] MEDS: PYRIDOSTIGMINE 60 MG TAB PO SCH ×3 (06:26→21:26)
[2019-01-28] MEDS: LEVOTHYROXINE 112 MCG TAB PO SCH (06:26)
[2019-01-28] MEDS: predniSONE 20 MG TAB PO SCH (09:21)
[2019-01-28] MEDS: FAMOTIDINE 20 MG INJ IV SCH ×2 (09:21→21:26)
--- NOTE | 2019-01-28 10:29 | CONS ---
Assessment/Plan Assessment/Plan Assessment/Plan (Daily) Assessment recommendations; 1. Patient admitted with myasthenia gravis crisis with significant interval clinical improvement. 2. History of hypothyroidism. Continue with supportive care. Consider discharge. Follow-up with [facility] clinic. Consultation Date/Type/Reason Admit Date/Time Jan 20, 2019 at 02:09 Initial Consult Date 01/20/19 Type of Consult Pulmonary/critical care Patient is a pleasant 53-year-old male who came into the hospital with complaints of weakness and shortness of breath. Patient does have history of myasthenia gravis diagnosed about a month ago patient also had low vital capacity and was admitted to ICU and started on immunoglobulin as well as pyridostigmine with significant improvement in symptoms. By the time I saw him, patient sitting in a chair at bedside and denies any shortness of breath, any coughing, wheezing, sputum production. Past medical history; 1. History of myasthenia gravis diagnosed recently about a month ago. No history of any thymectomy. 2. History of hypothyroidism and hypertension. Medications; reviewed. Allergies; none. Social history; noncontributory. Family history; noncontributory. Occupational history; patient is disabled. Review of systems; denies any headache, visual changes, seizures. Shortness of breath is improving. Complains of minimal chest congestion. Denies any abdominal pain, complains of mild dysphagia. Denies any nausea vomiting, any fever chills, any urinary symptoms. Any edema orthopnea. General exam; middle-aged male, awake alert, currently in no distress. Requesting Provider: LORRAINE WATERMAN Date/Time of Note DATE: 01/28/19 TIME: 10:28 24 HR Interval Summary Free Text/Dictation Patient's condition is stable. Remains awake and alert. Denies any shortness of breath, dysphagia. General exam; middle-aged male, awake alert, currently in no distress. Exam/Review of Systems Exam Vitals Vital Signs Date Temp Pulse Resp B/P (MAP) Pulse Ox O2 O2 Flow FiO2 Time Delivery Rate 01/28/19 62 08:22 01/28/19 97.9 20 115/71 98 07:41 (86) 01/25/19 21 09:33 01/25/19 Room Air 04:00 Intake and Output 01/27/19 01/27/19 01/28/19 1515:00 23:00 07:00 IntakeIntake Total 788 ml 400 ml OutputOutput Total 1800 ml 900 ml BalanceBalance -1012 ml -500 ml Exam H EENT exam; supple neck, no JVD. No lymphadenopathy. Midline trachea. No thyromegaly. Patient has fair dentition. Chest exam; clear to auscultation. S1-S2 audible, no murmurs. Regular rhythm. Abdomen exam; soft, no organomegaly. Bowel sounds audible. Extremity exam; no peripheral edema. DINING ROOM SUPERVISOR exam; no focal deficit. Results Result Diagram: 01/28/19 0545 01/28/1945 Results 24hrs Laboratory Tests Test 01/27/19 10:35 01/28/19 05:45 Fibrinogen 179.0 L White Blood Count 7.5 # Red Blood Count 3.66 L Hemoglobin 11.3 L Hematocrit 32.4 L Mean Corpuscular Volume 88.5 Mean Corpuscular Hemoglobin 30.9 Mean Corpuscular Hemoglobin Concent 34.9 Red Cell Distribution Width 12.7 Platelet Count 178 Mean Platelet Volume 10.7 H Immature Granulocytes % 0.300 Neutrophils % 57.6 Lymphocytes % 35.3 Monocytes % 6.0 Eosinophils % 0.7 Basophils % 0.1 Nucleated Red Blood Cells % 0.0 Immature Granulocytes # 0.020 Neutrophils # 4.3 Lymphocytes # 2.6 Monocytes # 0.5 Eosinophils # 0.1 Basophils # 0.0 Nucleated Red Blood Cells # 0.0 Sodium Level 139 Potassium Level 3.8 Chloride Level 102 Carbon Dioxide Level 29 Anion Gap 8 Blood Urea Nitrogen 15 Creatinine 0.64 Est Glomerular Filtrat Rate mL/min > 60 Glucose Level 88 Calcium Level 8.8 Phosphorus Level 3.1 Magnesium Level 2.1 Medications Medication Current Medications IV Flush (NS 3 ml) 3 ml PER PROTOCOL IV ; Start 01/20/19 at 02:30 Glycopyrrolate (Robinul) 0.2 mg QID PRN IV SECRETIONS Last administered on 08/02at 00:00; Admin Dose 0.2 MG; Start 01/20/19 at 09:00 Famotidine (Pepcid Iv) 20 mg BID IV Last administered on 01/28/19at 09:21; Admin Dose 20 MG; Start 01/20/19 at 10:30 Hydralazine HCl (Apresoline) 10 mg Q4H PRN IV SBP > 160; Start 01/21/19 at 23:00 Prednisone (Prednisone) 20 mg DAILY PO Last administered on 01/28/19at 09:21; Admin Dose 20 MG; Start 01/24/19 at 09:00 Pyridostigmine [place] (Mestinon) 60 mg Q8 PO Last administered on 01/28/19at 06:26; Admin Dose 60 MG; Start 01/24/19 at 16:00 Dextrose/Sodium Chloride 1,000 ml @ 50 mls/hr Q20H IV Last administered on 01/27/19at 21:04; Admin Dose 50 MLS/HR; Start 01/24/19 at 12:30 Levothyroxine Sodium (Synthroid) 112 mcg DAILY@06 PO Last administered on 01/28/19at 06:26; Admin Dose 112 MCG; Start 01/27/19 at 06:00 JOSE JUAN WELLS Jan 28, 2019 10:29
--- NOTE | 2019-01-28 11:07 | CONS ---
Assessment/Plan Assessment/Plan Hospital Course 53 M w/ recently diagnosed Myasthenia Gravis...who presents for evaluation of dysphagia, dysarthria, and diplopia...for which neurology is consulted. He was notably prescribed IVIG at home x 3 days, and an increased dose of Mestinon in recent days...for management of the same....but has clinically worsened.... As well, he received 10mg iv pyridostigmine x 2 and 10mg iv decadron x [address] [facility] on 01/19....which are likely contributors to continued clinical decline.. The clinical picture is consistent w/ myasthenia gravis exacerbation...which is showing some delayed improvement with plasmapheresis. Head CT is without acute intracranial pathology. s/p 2g/kg course of IVIG on 01/21, with limited improvement in dysphagia.. PLEX started on 01/22 P: Continue plasmapheresis for 1-3 adnl sessions, pending clinical progress Continue Mestinon 60mg PO TID for now OK to continue Prednisone 20mg daily for now Glycopyrrolate prn OK.. May resume Cellcept per ops once medication is reconciled.. Other medical management per primary PT/OT/ST as necessary Will follow Consultation Date/Type/Reason Admit Date/Time Jan 20, 2019 at 02:09 Type of Consult Neurology Requesting Provider: LORRAINE WATERMAN Date/Time of Note DATE: 01/28/19 TIME: 11:06 24 HR Interval Summary Free Text/Dictation Continues acute care. On day 5 of PLEX Exam Vital Signs Vitals Vital Signs Date Temp Pulse Resp B/P (MAP) Pulse Ox O2 O2 Flow FiO2 Time Delivery Rate 01/28/19 62 08:22 01/28/19 97.9 20 115/71 98 07:41 (86) 01/25/19 21 09:33 01/25/19 Room Air 04:00 Intake and Output 01/27/19 01/27/19 01/28/19 1515:00 23:00 07:00 IntakeIntake Total 788 ml 400 ml OutputOutput Total 1800 ml 900 ml BalanceBalance -1012 ml -500 ml Exam PE: Gen Appearance: No Apparent Distress HEENT: Normocephalic Cardiovascular: Regular rate Lungs: Clear bilaterally Abdomen: Soft Extremities: Dry NE: The patient was alert and oriented. Speech was normal. Fund of knowledge was normal. Pupils were equal and reactive to light. There was no afferent pupillary defect. Visual miranda were diminished bilaterally, though improved. Funduscopic examination was limited. Extra-ocular movements were limited bilaterally, though stable from prior. Ptosis was absent. There was no nystagmus. Facial sensation was normal. Face was symmetric with normal strength. Hearing was intact. Palate movements were normal. Neck strength was normal. There was normal tongue bulk and speed of movement. Tone was normal. Muscle bulk was normal. I did not see fasciculations. Arms and legs were strong to confrontation. Vibration sensation was normal. Temperature and pinprick sensation was normal. Rapid alternating movements were normal. There was no dysmetria. There was no intention tremor. Gait was deferred due to bedrest. Arm and leg reflexes were 2+ and symmetric. Bauer's sign was absent. Plantar responses were flexor. REAGAN DOWNS NP Jan 28, 2019 11:07
[2019-01-28] MEDS ORDERED: ALBUMIN HUMAN 5% IVPB SCH (12:00)
[2019-01-28] MEDS ORDERED: DEXTROSE 5% IVPB SCH (12:00)
[2019-01-28] MEDS ORDERED: CITRATE DEXTROSE SOLUTION 1,000 ML SOLUTION MC SCH (12:00)
[2019-01-28] MEDS ORDERED: CALCIUM GLUCONATE IVPB SCH (12:00)
--- NOTE | 2019-01-28 13:28 | PN ---
DATE: 01/28/2019 SUBJECTIVE: The patient had plasmapheresis, fourth episode yesterday, tolerated well. No other acut e events noted. OBJECTIVE: VITAL SIGNS: Blood pressure is 115/71, pulse 62, respirations 20, temperature 97.9. HEENT: Head is normocephalic. NECK: Supple. HEART: Regular rate. LUNGS: Show diminished breath sounds at the base. ABDOMEN: Soft, nontender to palpation. No rebound or guarding. EXTREMITIES: Negative for clubbing, cyanosis. No edema. DERMATOLOGIC: No rashes. MUSCULOSKELETAL: No joint effusion. NEUROLOGIC: No change in exam. MEDICATIONS: Have been reviewed. LABORATORY DATA: Has been reviewed. ASSESSMENT AND PLAN: 1. Myasthenia gravis. The patient is status post intravenous immunoglobulin (IVIG). The patient storm s completed 4 of 5 sessions of plasmapheresis. We will order a fifth session of plasmapheresis today . Plan is for a plasma volume exchange of 1.5 of plasma volume with replacement of fluid of two-thir d of 5% albumin and one-third normal saline. We will give 3 grams of calcium. 3. Hypothyroidism. Continue Synthroid. 4. Hypertension. Continue current blood pressure regimen. 5. Acute hypoxic respiratory failure, improved. 6. Dysphagia. Continue modified diet. Dictated By: MARIBELL CARROLL DO NR/NTS Conf#: [id number] DID#: [id number] CC: RICARDO SIMMONS MD;*EndCC*
[2019-01-28] MEDS: DEXTROSE 5%-0.45% NACL 1,000 ML IV SCH (14:27)
--- NOTE | 2019-01-28 14:31 | PN ---
Date/Time of Note Date/Time of Note DATE: 01/28/19 TIME: 14:17 Assessment/Plan VTE Prophylaxis Risk score (from Ns)>0 risk: 2 SCD applied (from Nsg): Yes Pharmacological prophylaxis: other Lines/Catheters IV Catheter Type (from Nrsg): Jewel cath Urinary Cath still in place: No Assessment/Plan Assessment/Plan 1. Acute Myasthenic crisis - Neurology on board and appreciate recommendations. continue current medications and monitor for clinical improvement. Still with double vision this am causing frontal pressure - Failed IVIG - Nephrology on board for management of plasmapheresis - Plasmapheresis initiated 01/22/19 and received 5 sessions 2. Hypothyroidism - Continue levothyroxine 3. Hypertension - BP stable. no need for medications currently 4. Disposition - Continue plasmapheresis and monitor for improvement in neurological symptoms. Still with double vision - PT evaluation for possible ARU placement Result Diagram: 01/28/19 0545 01/28/19 0545 Results 24hrs Laboratory Tests Test 01/28/19 05:45 White Blood Count 7.5 # Red Blood Count 3.66 L Hemoglobin 11.3 L Hematocrit 32.4 L Mean Corpuscular Volume 88.5 Mean Corpuscular Hemoglobin 30.9 Mean Corpuscular Hemoglobin Concent 34.9 Red Cell Distribution Width 12.7 Platelet Count 178 Mean Platelet Volume 10.7 H Immature Granulocytes % 0.300 Neutrophils % 57.6 Lymphocytes % 35.3 Monocytes % 6.0 Eosinophils % 0.7 Basophils % 0.1 Nucleated Red Blood Cells % 0.0 Immature Granulocytes # 0.020 Neutrophils # 4.3 Lymphocytes # 2.6 Monocytes # 0.5 Eosinophils # 0.1 Basophils # 0.0 Nucleated Red Blood Cells # 0.0 Sodium Level 139 Potassium Level 3.8 Chloride Level 102 Carbon Dioxide Level 29 Anion Gap 8 Blood Urea Nitrogen 15 Creatinine 0.64 Est Glomerular Filtrat Rate mL/min > 60 Glucose Level 88 Calcium Level 8.8 Phosphorus Level 3.1 Magnesium Level 2.1 Subjective 24 Hr Interval Summary Free Text/Dictation Patients experiencing frontal pressure and had an ice pack in place for relief. States due to double vision the strain causes discomfort and pressure. Undergoing plasmapheresis without any issues. Exam/Review of Systems Exam Vitals Vital Signs Date Temp Pulse Resp B/P (MAP) Pulse Ox O2 O2 Flow FiO2 Time Delivery Rate 01/28/19 81 12:00 01/28/19 97.5 21 117/71 99 11:57 (86) 01/25/19 21 09:33 01/25/19 Room Air 04:00 Intake and Output 01/27/19 01/27/19 01/28/19 1414:59 22:59 06:59 IntakeIntake Total 788 ml 400 ml OutputOutput Total 1800 ml 900 ml BalanceBalance -1012 ml -500 ml Exam General: Patient is laying in bed and answers questions appropriately. mild discomfort Neck: Supple, nontender, midline Respiratory: Diminished breath sounds. no wheezing Cardiovascular: regular rate and rhythm, no obvious murmurs Gastrointestinal: soft, non-tender to palpation, nondistended, bowel sounds he tano. Neurological: Moves all extremities spontaneously, no focal deficits appreciated. motor intact Skin: No new skin lesions Results Results 24hrs Laboratory Tests Test 01/28/19 05:45 White Blood Count 7.5 # Red Blood Count 3.66 L Hemoglobin 11.3 L Hematocrit 32.4 L Mean Corpuscular Volume 88.5 Mean Corpuscular Hemoglobin 30.9 Mean Corpuscular Hemoglobin Concent 34.9 Red Cell Distribution Width 12.7 Platelet Count 178 Mean Platelet Volume 10.7 H Immature Granulocytes % 0.300 Neutrophils % 57.6 Lymphocytes % 35.3 Monocytes % 6.0 Eosinophils % 0.7 Basophils % 0.1 Nucleated Red Blood Cells % 0.0 Immature Granulocytes # 0.020 Neutrophils # 4.3 Lymphocytes # 2.6 Monocytes # 0.5 Eosinophils # 0.1 Basophils # 0.0 Nucleated Red Blood Cells # 0.0 Sodium Level 139 Potassium Level 3.8 Chloride Level 102 Carbon Dioxide Level 29 Anion Gap 8 Blood Urea Nitrogen 15 Creatinine 0.64 Est Glomerular Filtrat Rate mL/min > 60 Glucose Level 88 Calcium Level 8.8 Phosphorus Level 3.1 Magnesium Level 2.1 Medications Medication Current Medications IV Flush (NS 3 ml) 3 ml PER PROTOCOL IV ; Start 01/20/19 at 02:30 Glycopyrrolate (Robinul) 0.2 mg QID PRN IV SECRETIONS Last administered on 01/22/19at 00:00; Admin Dose 0.2 MG; Start 01/20/19 at 09:00 Famotidine (Pepcid Iv) 20 mg BID IV Last administered on 01/28/19at 09:21; Admin Dose 20 MG; Start 01/20/19 at 10:30 Hydralazine HCl (Apresoline) 10 mg Q4H PRN IV SBP > 160; Start 01/21/19 at 23:00 Prednisone (Prednisone) 20 mg DAILY PO Last administered on 01/28/19 09:21; Admin Dose 20 MG; Start 01/24/19 at 09:00 Pyridostigmine [place] (Mestinon) 60 mg Q8 PO Last administered on 01/28/19 06:26; Admin Dose 60 MG; Start 01/24/19 at 16:00 Dextrose/Sodium Chloride 1,000 ml @ 50 mls/hr Q20H IV Last administered on 01/27/19 21:04; Admin Dose 50 MLS/HR; Start 01/24/19 at 12:30 Levothyroxine Sodium (Synthroid) 112 mcg DAILY@06 PO Last administered on 01/28/19 06:26; Admin Dose 112 MCG; Start 01/27/19 at 06:00 Calcium Gluconate 3 gm/Dextrose 130 ml @ 60 mls/hr ONCE IVPB Last administered on 01/28/19 11:00; Admin Dose 60 MLS/HR; Start 01/28/19 at 12:00; Stop 01/28/19 at 18:00 Albumin Human 4,000 ml @ 0 mls/hr ONCE IVPB Last administered on 01/28/19at 11:00; Admin Dose 4,000 MLS/HR; Start 01/28/19 at 12:00; Stop 01/28/19 at 18:00 Citrate Phosphate Dextrose (Acd-A) 1,000 ml ONCE MC Last administered on 01/28/19at 11:00; Admin Dose 1,000 ML; Start 01/28/19 at 12:00; Stop 01/28/19 at 18:00 TERESA DAO MD Jan 28, 2019 14:31
[2019-01-29] VITALS (11 sets, daily range): BP systolic 103–133; BP diastolic 65–75; PULSE 58–88; RESP 18
[2019-01-29] MEDS: LEVOTHYROXINE 112 MCG TAB PO SCH (06:22)
[2019-01-29] MEDS: PYRIDOSTIGMINE 60 MG TAB PO SCH ×3 (06:22→21:18)
[2019-01-29] MEDS: predniSONE 20 MG TAB PO SCH (08:28)
[2019-01-29] MEDS: FAMOTIDINE 20 MG INJ IV SCH ×2 (08:28→21:18)
--- NOTE | 2019-01-29 09:00 | PN ---
DATE: 01/29/2019 SUBJECTIVE: The patient had plasmapheresis yesterday, tolerated well without complaints. No other e vents noted. No fevers, chills, nausea, or vomiting. OBJECTIVE: VITAL SIGNS: Blood pressure is 115/72, pulse 70, respirations 18, temperature 98.0. HEENT: Head is normocephalic. NECK: Supple. HEART: Regular rate. LUNGS: Show diminished breath sounds at the base. ABDOMEN: Soft, nontender to palpation without rebound or guarding. EXTREMITIES: Negative for clubbing, cyanosis, no edema. DERMATOLOGIC: No rashes. MUSCULOSKELETAL: No joint effusion. NEUROLOGIC: No change in exam. MEDICATIONS: Reviewed. LABORATORY DATA: Reviewed. ASSESSMENT AND PLAN: 1. Myasthenia gravis crisis. The patient is status post IVIG, status post 5 sessions of plasmaphere sis. We will follow up with neurology, further sessions are needed. If no further sessions are need ed, the patient's Jewel catheter will be removed. 2. Hypothyroidism. Continue Synthroid. 3. Hypertension. 4. Dysphagia. Continue modified diet. 5. Hypoxemic respiratory failure, improving. Dictated By: MARIBELL CARROLL DO NR/NTS Conf#: [id number] DID#: [id number] CC: TERESA DAO MD; BRYSON FARRELL MD; RICARDO SIMMONS MD;*EndCC*
--- NOTE | 2019-01-29 09:50 | PN ---
Date/Time of Note Date/Time of Note DATE: 01/29/19 TIME: 09:50 Assessment/Plan VTE Prophylaxis Risk score (from Ns)>0 risk: 3 SCD applied (from Ns): Yes Pharmacological prophylaxis: NA/contraindicated Pharm contraindication: low risk/ambulating Lines/Catheters [facility]from [facility] Jewel Urinary Cath still in place: No Assessment/Plan Assessment/Plan 1. Acute Myasthenic crisis- improving - Neurology on board and appreciate recommendations. continue current medications and monitor for clinical improvement. Still with double vision this am causing frontal pressure. Patient was inquiring about thymectomy and discussed to have evaluation as outpatient since he would be a good candidate since <60 and will ocular issues - Failed IVIG - Nephrology on board for management of plasmapheresis - Plasmapheresis initiated 01/22/19 and received 5 sessions 2. Hypothyroidism - Continue levothyroxine 3. Hypertension - BP stable. no need for medications currently 4. Disposition - Will touch base with Neurology if further episodes of plasmapheresis needed. Result Diagram: 01/28/19 0545 01/28/19 0545 Subjective 24 Hr Interval Summary Free Text/Dictation Patient still with visual issues but states hes feeling better. No longer with swallowing issues. He is able to shave this am but states hands are still shaky. Exam/Review of Systems Exam Vitals Vital Signs Date Temp Pulse Resp B/P (MAP) Pulse Ox O2 O2 Flow FiO2 Time Delivery Rate 01/29/19 98.0 70 18 115/72 100 07:13 (86) 01/25/19 21 09:33 Intake and Output 01/28/19 01/28/19 01/29/19 1515:00 23:00 07:00 IntakeIntake Total 1400 ml 960 ml OutputOutput Total 1300 ml 650 ml BalanceBalance 100 ml 310 ml Exam General: Patient is sitting in front of the sink, shaving Neck: Supple, nontender, midline Respiratory: Diminished breath sounds. no wheezing or rhonchi Cardiovascular: regular rate and rhythm, no obvious murmurs Gastrointestinal: soft, non-tender to palpation, nondistended, bowel sounds heard. Neurological: Moves all extremities spontaneously, no focal deficits appreciated. motor intact Skin: No new skin lesions Medications Medication Current Medications IV Flush (NS 3 ml) 3 ml PER PROTOCOL IV ; Start 01/20/19 at 02:30 Glycopyrrolate (Robinul) 0.2 mg QID PRN IV SECRETIONS Last administered on 01/22/19 00:00; Admin Dose 0.2 MG; Start 01/20/19 at 09:00 Famotidine (Pepcid Iv) 20 mg BID IV Last administered on 01/29/19 08:28; Admin Dose 20 MG; Start 01/20/19 at 10:30 Hydralazine HCl (Apresoline) 10 mg Q4H PRN IV SBP > 160; Start 01/21/19 at 23:00 Prednisone (Prednisone) 20 mg DAILY PO Last administered on 01/29/19 08:28; Admin Dose 20 MG; Start 01/24/19 at 09:00 Pyridostigmine [place] (Mestinon) 60 mg Q8 PO Last administered on 01/29/19 06:22; Admin Dose 60 MG; Start 01/24/19 at 16:00 Dextrose/Sodium Chloride 1,000 ml @ 50 mls/hr Q20H IV Last administered on 01/28/19 14:27; Admin Dose 50 MLS/HR; Start 01/24/19 at 12:30 Levothyroxine Sodium (Synthroid) 112 mcg DAILY@06 PO Last administered on 01/29/19 06:22; Admin Dose 112 MCG; Start 01/27/19 at 06:00 TERESA DAO MD Jan 29, 2019 09:50
[2019-01-29] MEDS: DEXTROSE 5%-0.45% NACL 1,000 ML IV SCH (10:42)
--- NOTE | 2019-01-29 10:48 | CONS ---
Assessment/Plan Assessment/Plan Assessment/Plan (Daily) Assessment and recommendations; next 1. Patient admitted for myasthenia gravis exacerbation with significant overall interval improvement. Status post plasmapheresis as well as IVIG treatment maintained on Mysoline. 2. Hypothyroidism. Continue current supportive care. Consider discharge. Follow-up with primary care team at [facility]. Consultation Date/Type/Reason Admit Date/Time Jan 20, 2019 at 02:09 Initial Consult Date 01/20/19 Type of Consult Pulmonary/critical care Patient is a pleasant 53-year-old male who came into the hospital with complaints of weakness and shortness of breath. Patient does have history of my asthenia gravis diagnosed about a month ago patient also had low vital capacity and was admitted to ICU and started on immunoglobulin as well as pyridostigmine with significant improvement in symptoms. By the time I saw him, patient sitting in a chair at bedside and denies any shortness of breath, any coughing, wheezing, sputum production. Past medical history; 1. History of myasthenia gravis diagnosed recently about a month ago. No history of any thymectomy. 2. History of hypothyroidism and hypertension. Medications; reviewed. Allergies; none. Social history; noncontributory. Family history; noncontributory. Occupational history; patient is disabled. Review of systems; denies any headache, visual changes, seizures. Shortness of breath is improving. Complains of minimal chest congestion. Denies any abdominal pain, complains of mild dysphagia. Denies any nausea vomiting, any fever chills, any urinary symptoms. Any edema orthopnea. General exam; middle-aged male, awake alert, currently in no distress. Requesting Provider: LORRAINE WATERMAN Date/Time of Note DATE: 01/29/19 TIME: 10:46 24 HR Interval Summary Free Text/Dictation Patient's condition is stable. Remains awake and alert. Denies any shortness of breath, dysphagia. General exam; middle-aged male, awake alert, currently in no distress. Exam/Review of Systems Exam Vitals Vital Signs Date Temp Pulse Resp B/P (MAP) Pulse Ox O2 O2 Flow FiO2 Time Delivery Rate 01/29/19 77 08:00 01/29/19 98.0 18 115/72 100 07:13 (86) 01/25/19 21 09:33 Intake and Output 01/28/19 01/28/19 01/29/19 1515:00 23:00 07:00 IntakeIntake Total 1400 ml 960 ml OutputOutput Total 1300 ml 650 ml BalanceBalance 100 ml 310 ml Exam H EENT exam; supple neck, no JVD. No lymphadenopathy. Midline trachea. No thyromegaly. Patient has good dentition. No neck masses. Chest exam; clear to auscultation. S1-S2 audible, no murmurs. Regular rhythm. Abdomen exam; soft, nontender. No organomegaly. Bowel sounds audible. Extremity exam; no peripheral edema clubbing. [employer] exam; no focal deficit. Results Result Diagram: 01/28/1945 01/28/19544 Medications Medication Current Medications IV Flush (NS 3 ml) 3 ml PER PROTOCOL IV ; Start 01/20/19 at 02:30 Glycopyrrolate (Robinul) 0.2 mg QID PRN IV SECRETIONS Last administered on 01/22/19at 00:00; Admin Dose 0.2 MG; Start 01/20/19 at 09:00 Famotidine (Pepcid Iv) 20 mg BID IV Last administered on 01/29/19 08:28; Admin Dose 20 MG; Start 01/20/19 at 10:30 Hydralazine HCl (Apresoline) 10 mg Q4H PRN IV SBP > 160; Start 01/21/19 at 23:00 Prednisone (Prednisone) 20 mg DAILY PO Last administered on 01/29/19 08:28; Admin Dose 20 MG; Start 01/24/19 at 09:00 Pyridostigmine [place] (Mestinon) 60 mg Q8 PO Last administered on 01/29/19 06:22; Admin Dose 60 MG; Start 01/24/19 at 16:00 Dextrose/Sodium Chloride 1,000 ml @ 50 mls/hr Q20H IV Last administered on 01/29/19 10:42; Admin Dose 50 MLS/HR; Start 01/24/19 at 12:30 Levothyroxine Sodium (Synthroid) 112 mcg DAILY@06 PO Last administered on 01/29/19 06:22; Admin Dose 112 MCG; Start 01/27/19 at 06:00 JOSE JUAN WELLS Jan 29, 2019 10:48
--- NOTE | 2019-01-29 14:03 | CONS ---
Assessment/Plan Assessment/Plan Hospital Course 53 M w/ recently diagnosed Myasthenia Gravis...who presents for evaluation of dysphagia, dysarthria, and diplopia...for which neurology is consulted. He was notably prescribed IVIG at home x 3 days, and an increased dose of Mestinon in recent days...for management of the same....but has clinically worsened.... As well, he received 10mg iv pyridostigmine x 2 and 10mg iv decadron x 1 upon arrival to [facility] on 01/19....which are likely contributors to continued clinical decline.. The clinical picture is consistent w/ myasthenia gravis exacerbation...which is showing some delayed improvement with plasmapheresis. Head CT is without acute intracranial pathology. s/p 2g/kg course of IVIG on 01/21, with limited improvement in dysphagia.. s/p PLEX x 5 sessions P: Cont PLEX for 2 more sessions Continue Mestinon 60mg PO TID for now OK to continue Prednisone 20mg daily for now Glycopyrrolate prn OK.. May resume Cellcept per ops.. Other medical management per primary PT/OT/ST as necessary Will follow Consultation Date/Type/Reason Admit Date/Time Jan 20, 2019 at 02:09 Type of Consult Neurology Reason for Consultation mg Requesting Provider: LORRAINE WATERMAN Date/Time of Note DATE: 01/29/19 TIME: 14:03 Exam Vital Signs Vitals Vital Signs Date Temp Pulse Resp B/P (MAP) Pulse Ox O2 O2 Flow FiO2 Time Delivery Rate 01/29/19 88 12:00 01/29/19 97.7 18 133/75 100 Room Air 11:43 (94) 01/25/19 21 09:33 Intake and Output 01/28/19 01/28/19 01/29/19 1515:00 23:00 07:00 IntakeIntake Total 1400 ml 960 ml OutputOutput Total 1300 ml 650 ml BalanceBalance 100 ml 310 ml JOESPH LLAMAS Jan 29, 2019 14:03 REAGAN DOWNS NP Jan 29, 2019 16:19
[2019-01-29] MEDS ORDERED: CITRATE DEXTROSE SOLUTION 1,000 ML SOLUTION MC ONE (16:00)
[2019-01-29] MEDS ORDERED: ALBUMIN HUMAN 5% 500ML INJ CATHETER SCH (18:00)
[2019-01-29] MEDS ORDERED: CALCIUM GLUCONATE 10% 2 GM in DEXTROSE 5% 100 ML IVPB ONE (18:00)
[2019-01-30] VITALS (11 sets, daily range): BP systolic 93–119; BP diastolic 52–67; PULSE 68–91; RESP 16–20
[2019-01-30] MEDS: LEVOTHYROXINE 112 MCG TAB PO SCH (05:50)
[2019-01-30] MEDS: PYRIDOSTIGMINE 60 MG TAB PO SCH ×3 (05:50→21:22)
[2019-01-30] MEDS: FAMOTIDINE 20 MG INJ IV SCH ×2 (08:05→21:22)
[2019-01-30] MEDS: DEXTROSE 5%-0.45% NACL 1,000 ML IV SCH (08:05)
[2019-01-30] MEDS: predniSONE 20 MG TAB PO SCH (08:05)
--- NOTE | 2019-01-30 09:38 | PN ---
Date/Time of Note Date/Time of Note DATE: 01/30/19 TIME: 09:35 Assessment/Plan VTE Prophylaxis Risk score (from Ns)>0 risk: 3 SCD applied (from Ns): Yes Pharmacological prophylaxis: NA/contraindicated Pharm contraindication: low risk/ambulating Lines/Catheters IV Catheter Type (from Nrs): Peripheral IV Urinary Cath still in place: No Assessment/Plan Assessment/Plan 1. Acute Myasthenic crisis- improving - Neurology on board and appreciate recommendations. continue current medications and monitor for clinical improvement. 2 more sessions of plasmapheresis ordered yesterday and currently receiving 7th session this am - Failed IVIG - Nephrology on board for management of plasmapheresis - Plasmapheresis initiated 01/22/19 and received 7 sessions 2. Hypothyroidism - Continue levothyroxine 3. Hypertension - BP stable. no need for medications currently 4. Disposition - Plasmapheresis this am and will monitor for clinical improvement Result Diagram: 01/28/19 0545 01/28/19 0545 Subjective 24 Hr Interval Summary Free Text/Dictation Patient with frontal pressure this am but relieved with ice packs. No acute overnight events. Plasmapheresis this am. Exam/Review of Systems Exam Vitals Vital Signs Date Temp Pulse Resp B/P (MAP) Pulse Ox O2 O2 Flow FiO2 Time Delivery Rate 01/30/19 73 08:14 01/30/19 98.3 18 119/67 99 Room Air 08:05 (84) Intake and Output 01/29/19 01/29/19 01/30/19 1515:00 23:00 07:00 IntakeIntake Total 200 ml 1100 ml 900 ml OutputOutput Total 500 ml BalanceBalance 200 ml 1100 ml 400 ml Exam General: Patient is laying in bed, no acute distress. mild discomfort due to head pressure Neck: Supple, nontender, midline Respiratory: Diminished breath sounds. no wheezing or rhonchi Cardiovascular: regular rate and rhythm, no obvious murmurs Gastrointestinal: soft, non-tender to palpation, nondistended, bowel sounds heard. Neurological: Moves all extremities spontaneously, no focal deficits appreciated. motor intact Skin: No new skin lesions Medications Medication Current Medications IV Flush (NS 3 ml) 3 ml PER PROTOCOL IV ; Start 01/20/19 at 02:30 Glycopyrrolate (Robinul) 0.2 mg QID PRN IV SECRETIONS Last administered on 01/22/19 00:00; Admin Dose 0.2 MG; Start 01/20/19 at 09:00 Famotidine (Pepcid Iv) 20 mg BID IV Last administered on 01/30/19at 08:05; Admin Dose 20 MG; Start 01/20/19 at 10:30 Hydralazine HCl (Apresoline) 10 mg Q4H PRN IV SBP > 160; Start 01/21/19 at 23:00 Prednisone (Prednisone) 20 mg DAILY PO Last administered on 01/30/19at 08:05; Admin Dose 20 MG; Start 01/24/19 at 09:00 Pyridostigmine [place] (Mestinon) 60 mg Q8 PO Last administered on 01/30/19 05:50; Admin Dose 60 MG; Start 01/24/19 at 16:00 Dextrose/Sodium Chloride 1,000 ml @ 50 mls/hr Q20H IV Last administered on 01/30/19at 08:05; Admin Dose 50 MLS/HR; Start 01/24/19 at 12:30 Levothyroxine Sodium (Synthroid) 112 mcg DAILY@06 PO Last administered on 01/30/19 05:50; Admin Dose 112 MCG; Start 01/27/19 at 06:00 Albumin Human ([place]x) 4,000 ml IV CATHETER Last administered on 01/29/19at 19:22; Admin Dose 4,000 ML; Start 01/29/19 at 18:00 Calcium Gluconate 3 gm/Dextrose 280 ml @ 60 mls/hr ONCE ONCE IVPB ; Start 01/30/19 at 10:00; Stop 01/30/19 at 14:39 Albumin Human ([place]) 4,000 ml ONCE CATHETER ; Start 01/30/19 at 10:00; Stop 01/30/19 at 23:59 Citrate Phosphate Dextrose (Acd-A) 1,000 ml ONCE ONCE MC ; Start 01/30/19 at 10:00; Stop 01/30/19 at 10:01 TERESA DAO MD Jan 30, 2019 09:38
--- NOTE | 2019-01-30 09:52 | PN ---
DATE: 01/30/2019 SUBJECTIVE: The patient is stable, no events overnight. The patient is scheduled for plasmapheresis today. No other events noted. OBJECTIVE: VITAL SIGNS: Blood pressure is 119/67, respirations 18, pulse 87, temperature 98.3. HEENT: Head is normocephalic. NECK: Supple. HEART: Regular rate. LUNGS: Show diminished breath sounds at the base. ABDOMEN: Soft, nontender to palpation without rebound or guarding. EXTREMITIES: Negative for clubbing, cyanosis, no edema. DERMATOLOGIC: No rashes. MUSCULOSKELETAL: No joint effusion. NEUROLOGIC: No change in exam. MEDICATIONS: Reviewed. LABORATORY DATA: Reviewed. ASSESSMENT AND PLAN: 1. Myasthenia gravis crisis. The patient is status post IVIG. The patient is receiving plasmaphere sis, today will be session 7 of 7. We will monitor closely. 2. Hypothyroidism. Continue Synthroid. 3. Hypertension. 4. Dysphagia. Continue modified diet. 5. Acute hypoxemic respiratory failure, resolved. Dictated By: MARIBELL CARROLL DO NR/NTS Conf#: [id number] DID#: [id number] CC: BRYSON FARRELL MD; TERESA DAO MD; RICARDO SIMMONS MD;*EndCC*
[2019-01-30] MEDS ORDERED: ALBUMIN HUMAN 5% 500ML INJ CATHETER SCH (10:00)
[2019-01-30] MEDS ORDERED: DEXTROSE 5% IVPB ONE (10:00)
[2019-01-30] MEDS ORDERED: CALCIUM GLUCONATE IVPB ONE (10:00)
[2019-01-30] MEDS ORDERED: CITRATE DEXTROSE SOLUTION 1,000 ML SOLUTION MC ONE (10:00)
--- NOTE | 2019-01-30 11:17 | CONS ---
Assessment/Plan Assessment/Plan Hospital Course 53 M w/ recently diagnosed Myasthenia Gravis...who presents for evaluation of dysphagia, dysarthria, and diplopia...for which neurology is consulted. He was notably prescribed IVIG at home x 3 days, and an increased dose of Mestinon in recent days...for management of the same....but has clinically worsened.... As well, he received 10mg iv pyridostigmine x 2 and 10mg iv decadron x 1 upon arrival to [facility] on 01/19....which are likely contributors to continued clinical decline.. The clinical picture is consistent w/ myasthenia gravis exacerbation...which is showing some delayed improvement with plasmapheresis. Head CT is without acute intracranial pathology. s/p 2g/kg course of IVIG on 01/21, with limited improvement in dysphagia.. s/p PLEX x 6 sessions P: Finish last course of PLEX Continue Mestinon 60mg PO TID for now OK to continue Prednisone 20mg daily for now Glycopyrrolate prn OK.. May resume Cellcept per ops.. Other medical management per primary PT/OT/ST as necessary Will follow Consultation Date/Type/Reason Admit Date/Time Jan 20, 2019 at 02:09 Type of Consult Neurology Requesting Provider: LORRAINE WATERMAN Date/Time of Note DATE: 01/30/19 TIME: 11:16 24 HR Interval Summary Free Text/Dictation Continues acute care. Receiving last session of PLEX today. Pt states that his vision is slightly less blurred than before. Exam Vital Signs Vitals Vital Signs Date Temp Pulse Resp B/P (MAP) Pulse Ox O2 O2 Flow FiO2 Time Delivery Rate 01/30/19 73 08:14 01/30/19 98.3 18 119/67 99 Room Air 08:05 (84) Intake and Output 01/29/19 01/29/19 01/30/19 1515:00 23:00 07:00 IntakeIntake Total 200 ml 1100 ml 900 ml OutputOutput Total 500 ml BalanceBalance 200 ml 1100 ml 400 ml Exam PE: Gen Appearance: No Apparent Distress HEENT: Normocephalic Cardiovascular: Regular rate Lungs: Clear bilaterally Abdomen: Soft Extremities: Dry NE: The patient was alert and oriented. Speech was normal. Fund of knowledge was normal. Pupils were equal and reactive to light. There was no afferent pupillary defect. Visual miranda were diminished bilaterally, though improved. Funduscopic examination was limited. Extra-ocular movements were limited bilaterally, though stable from prior. Ptosis was absent. There was no nystagmus. Facial sensation was normal. Face was symmetric with normal strength. Hearing was intact. Palate movements were normal. Neck strength was normal. There was normal tongue bulk and speed of movement. Tone was normal. Muscle bulk was normal. I did not see fasciculations. Arms and legs were strong to confrontation. Vibration sensation was normal. Temperature and pinprick sensation was normal. Rapid alternating movements were normal. There was no dysmetria. There was no intention tremor. Gait was deferred due to bedrest. Arm and leg reflexes were 2+ and symmetric. Bauer's sign was absent. Plantar responses were flexor. REAGAN DOWNS NP Jan 30, 2019 11:17
[2019-01-31] VITALS (11 sets, daily range): BP systolic 103–129; BP diastolic 59–74; PULSE 74–92; RESP 17–18
[2019-01-31] MEDS: DEXTROSE 5%-0.45% NACL 1,000 ML IV SCH (04:15)
[2019-01-31] MEDS: LEVOTHYROXINE 112 MCG TAB PO SCH (05:54)
[2019-01-31] MEDS: PYRIDOSTIGMINE 60 MG TAB PO SCH ×2 (05:54→14:23)
[2019-01-31] MEDS: predniSONE 20 MG TAB PO SCH (08:34)
[2019-01-31] MEDS: FAMOTIDINE 20 MG INJ IV SCH (08:34)
--- NOTE | 2019-01-31 09:49 | PN ---
DATE: 01/31/2019 SUBJECTIVE: The patient had plasmapheresis yesterday. No other events noted. No hemoptysis, fevers , nausea or vomiting. OBJECTIVE: VITAL SIGNS: Blood pressure is 108/74, pulse 36, respiration 18, temperature 97.7. HEENT: Head is normocephalic. NECK: Supple. HEART: Regular rate. LUNGS: Show diminished breath sounds at the base. ABDOMEN: Soft, nontender to palpation without rebound or guarding. EXTREMITIES: Negative for clubbing, cyanosis, no edema. DERMATOLOGIC: No rashes. MUSCULOSKELETAL: No joint effusion. NEUROLOGIC: No change in exam. MEDICATIONS: Reviewed. LABORATORY DATA: Reviewed. ASSESSMENT AND PLAN: 1. Myasthenia gravis crisis. The patient is status post IVIG. The patient has completed 7 cycles o f plasmapheresis. Will continue to monitor. We will follow up with neurology to see if further sess ions of plasmapheresis are needed. 2. Hypothyroidism. Continue Synthroid. 3. Hypertension. 4. Dysphagia. Continue modified diet. 5. Acute respiratory failure, resolved. Dictated By: MARIBELL AREVALO/NTS Conf#: [id number] DID#: [id number] CC: RICARDO SIMMONS MD;*End*
--- NOTE | 2019-01-31 11:34 | CONS ---
Assessment/Plan Assessment/Plan Hospital Course 53 M w/ recently diagnosed Myasthenia Gravis...who presents for evaluation of dysphagia, dysarthria, and diplopia...for which neurology is consulted. He was notably prescribed IVIG at home x 3 days, and an increased dose of Mestinon in recent days...for management of the same....but has clinically worsened.... As well, he received 10mg iv pyridostigmine x 2 and 10mg iv decadron x 1 upon arrival to [facility] on 01/19....which are likely contributors to continued clinical decline.. The clinical picture could be consistent w/ myasthenia gravis exacerbation...and has shown some delayed improvement with plasmapheresis. Head CT is without acute intracranial pathology. s/p 2g/kg course of IVIG on 01/21, with limited improvement in dysphagia.. s/p PLEX x 7 sessions P: Continue Mestinon 60mg PO TID for now, though its chcf utility is dubious.. OK to continue Prednisone 20mg daily as outpatient May resume Cellcept per ops.. PT/OT/ST as necessary Neurologically cleared for d/c, with close outpatient follow up Consultation Date/Type/Reason Admit Date/Time Jan 20, 2019 at 02:09 Type of Consult Neurology Requesting Provider: LORRAINE WATERMAN Date/Time of Note DATE: 01/31/19 TIME: 11:34 24 HR Interval Summary Free Text/Dictation Cont acute care. S/p PLEX. Exam Vital Signs Vitals Vital Signs Date Temp Pulse Resp B/P (MAP) Pulse Ox O2 O2 Flow FiO2 Time Delivery Rate 01/31/19 86 08:08 01/31/19 97.7 18 108/74 99 Room Air 08:01 (85) Intake and Output 01/30/19 01/30/19 01/31/19 1515:00 23:00 07:00 IntakeIntake Total 1800 ml 1200 ml OutputOutput Total 1500 ml 600 ml BalanceBalance 300 ml 600 ml Exam PE: Gen Appearance: No Apparent Distress HEENT: Normocephalic Cardiovascular: Regular rate Lungs: Clear bilaterally Abdomen: Soft Extremities: Dry NE: The patient was alert and oriented. Speech was normal. Fund of knowledge was normal. Pupils were equal and reactive to light. There was no afferent pupillary defect. Visual miranda were diminished bilaterally, though improved. Funduscopic examination was limited. Extra-ocular movements were limited bilaterally, though stable from prior. Ptosis was absent. There was no nystagmus. Facial sensation was normal. Face was symmetric with normal strength. Hearing was intact. Palate movements were normal. Neck strength was normal. There was normal tongue bulk and speed of movement. Tone was normal. Muscle bulk was normal. I did not see fasciculations. Arms and legs were strong to confrontation. Vibration sensation was normal. Temperature and pinprick sensation was normal. Rapid alternating movements were normal. There was no dysmetria. There was no intention tremor. Gait was deferred due to bedrest. Arm and leg reflexes were 2+ and symmetric. Bauer's sign was absent. Plantar responses were flexor. REAGAN DOWNS NP Jan 31, 2019 11:34 JOESPH LLAMAS Jan 31, 2019 20:02
--- NOTE | 2019-01-31 12:10 | PN ---
Date/Time of Note Date/Time of Note DATE: 01/31/19 TIME: 12:08 Assessment/Plan VTE Prophylaxis Risk score (from Ns)>0 risk: 3 SCD applied (from Ns): No SCD contraindicated: low risk/ambulating Pharmacological prophylaxis: NA/contraindicated Pharm contraindication: low risk/ambulating Lines/Catheters IV [facility] Central Line Central line still needed: Yes Urinary Cath still in place: No Assessment/Plan Assessment/Plan 1. Acute Myasthenic crisis- improving - Neurology on board and appreciate recommendations. continue current medications and monitor for clinical improvement. - Failed IVIG - Nephrology on board for management of plasmapheresis - Plasmapheresis initiated 01/22/19 and received 7 sessions (last 01/30) 2. Hypothyroidism - Continue levothyroxine 3. Hypertension - BP stable. no need for medications currently 4. Disposition -- Will touch base with Neurology regarding plan of care for discharge planning. If no further plasmapheresis planned, will d/c today. Will need luisa removed prior to discharge Result Diagram: 01/28/19 0545 01/28/19 0545 Subjective 24 Hr Interval Summary Free Text/Dictation Patient doing well and denies any acute issues. No overnight events. Exam/Review of Systems Exam Vitals Vital Signs Date Temp Pulse Resp B/P (MAP) Pulse Ox O2 O2 Flow FiO2 Time Delivery Rate 01/31/19 84 12:06 01/31/19 98.0 18 111/64 98 Room Air 11:40 (80) Intake and Output 01/30/19 01/30/19 01/31/19 1515:00 23:00 07:00 IntakeIntake Total 1800 ml 1200 ml OutputOutput Total 1500 ml 600 ml BalanceBalance 300 ml 600 ml Exam General: Patient is laying in bed, no acute distress. Neck: Supple, nontender, midline Respiratory: Diminished breath sounds. no wheezing or rhonchi Cardiovascular: regular rate and rhythm, no obvious murmurs Gastrointestinal: soft, non-tender to palpation, nondistended, bowel sounds heard. Neurological: Moves all extremities spontaneously, no focal deficits appreciated. motor intact Skin: No new skin lesions Medications Medication Current Medications IV Flush (NS 3 ml) 3 ml PER PROTOCOL IV ; Start 01/20/19 at 02:30 Glycopyrrolate (Robinul) 0.2 mg QID PRN IV SECRETIONS Last administered on 01/22/19 00:00; Admin Dose 0.2 MG; Start 01/20/19 at 09:00 Famotidine (Pepcid Iv) 20 mg BID IV Last administered on 01/31/19 08:34; Admin Dose 20 MG; Start 01/20/19 at 10:30 Hydralazine HCl (Apresoline) 10 mg Q4H PRN IV SBP > 160; Start 01/21/19 at 23:00 Prednisone (Prednisone) 20 mg DAILY PO Last administered on 01/31/19 08:34; Admin Dose 20 MG; Start 01/24/19 at 09:00 Pyridostigmine [place] (Mestinon) 60 mg Q8 PO Last administered on 01/31/19 05:54; Admin Dose 60 MG; Start 01/24/19 at 16:00 Dextrose/Sodium Chloride 1,000 ml @ 50 mls/hr Q20H IV Last administered on 01/31/19 04:15; Admin Dose 50 MLS/HR; Start 01/24/19 at 12:30 Levothyroxine Sodium (Synthroid) 112 mcg DAILY@06 PO Last administered on 01/31/19 05:54; Admin Dose 112 MCG; Start 01/27/19 at 06:00 Albumin Human (Alburx) 4,000 ml IV CATHETER Last administered on 01/29/19at 19:22; Admin Dose 4,000 ML; Start 01/29/19 at 18:00 TERESA DAO MD Jan 31, 2019 12:10
[2019-01-31] MEDS ORDERED: PRED20TA PO (13:36)
--- NOTE | 2019-01-31 13:40 | PDOCDIS ---
Discharge Instructions DIAGNOSIS Discharge Diagnosis 1. Acute Myasthenic crisis 2. Hypothyroidism CONDITION [id number] Patient Condition: [id number] Stable HOME CARE INSTRUCTIONS: 2 [id number] Diet Instructions: [id number] Low Fat /Cholesterol ACTIVITY: [id number] Activity Restrictions: [id number] No Restrictions FOLLOW UP/APPOINTMENTS Follow-up Plan 1. Follow up with your primary care physician in 1-2 weeks 2. Your blood pressure was well controlled off medications during your hospital stay. I recommend not continuing these medications until you see your primary care physician 3. Continue on all medications as prescribed 4. Our Neurologists recommend you follow up with [facility] neuromuscular clinic for ocular EMG 5. You will be given an outpatient physical therapy prescription which you can come to [facility] for outpatient physical therapy sessions as needed 6. If experiencing any concerning symptoms, please go to your nearest emergency department TERESA DAO MD Jan 31, 2019 13:40
[2019-01-31] MEDS ORDERED: MYCOPHENOLATE 250 MG CAP PO SCH (14:30)
--- NOTE | 2019-01-31 15:29 | DS ---
Date/Time of Note Date/Time of Note DATE: 01/31/19 TIME: 15:21 Discharge Summary Admission/Discharge Info Admit Date/Time Jan 20, 2019 at 02:09 Discharge Date/Time 01/31/19 Discharge Diagnosis 1. Acute Myasthenic crisis 2. Hypothyroidism Patient Condition: Stable Consults Neurology- Dr. Garcia Procedures PROCEDURE: Right femoral vein temporary dialysis catheter placement with ultrasound guidance. Plasmapheresis Hx of Present Illness Chief complaint: Difficulty swallowing for the last several days. This is a 53-year-old male with a history of myasthenia gravis is been complaining of swallowing problems for the past several days is progressively getting worse. He is on day 3 of 5 IVIG infusions at home. He is also taking Mestinon 60 mg. He says he is unable to swallow anything for the past 2 days and is having some decreased urine output. He has no respiratory difficulty or GI symptoms he feels generally weak and malaise. No headache no fever denies any dysuria. Patient did remain in the emergency department and was given steroids, he was unable to swallow Mestinon. The emergency department was attempting to transfer the patient to higher level of care where he could receive IVIG as well as Mestinon as our pharmacy did not have it in stock. Overnight I was contacted by the ED physician who stated that the pharmacy was going to obtain IVIG and Mestinon for us. The ED physician deemed the patient stable to go to the telemetry floor. Upon my examination of the patient at the bedside I did order a vital capacity test which did show a vital capacity of approximately 800. Due to his low vital capacity and his ongoing secretions and feelings of weakness I made the decision to take the patient emergently to the ICU for closer monitoring and airway management in the setting of possible need for intubation. Patient reports that he was diagnosed with myasthenia gravis approximately 1 month ago at [facility]. He reports that he does take IVIG through home health nurse apparently. Patient reports that he only has myasthenia gravis as medical problems however he does have other medications listed on his EMR. Patient likely does appear to be a poor historian. Allergies: NKDA Hospital Course Patient was admitted to ICU for close monitoring given high risk for intubation. Neurology was consulted for recommendations on treatment for myasthenia gravis exacerbation. Patient was started on IVIG with no improvement in symptoms and after some contemplation patient agreed to plasmapheresis. Pulmonology was consulted given high risk for intubation which patient fortunately did not require during hospital stay. Nephrology was consulted for management of plasmapheresis and Vascular surgery placed luisa catheter for access. Patient underwent continuous sessions of plasmapheresis with improvement in overall condition. He was able to be advance to regular diet without any further swallowing issues. He progressed well with physical therapy as well and did not need ARU or inpatient therapy. Patient was cleared by neurology for discharge and discharged home in good condition. Home Meds Reported Medications Omeprazole* (Omeprazole*) 20 Mg Capsule.dr, 20 MG PO BID, #60 CAP 01/24/19 Mycophenolate Mofetil* (Mycophenolate Mofetil*) 500 Mg Tablet, 1000 MG PO BID, TAB 01/24/19 Amlodipine Besylate* (Amlodipine Besylate*) 10 Mg Tablet, 10 MG PO DAILY, #30 TAB 01/19/19 Levothyroxine Sodium* (Levothyroxine Sodium*) 112 Mcg Tablet, 112 MCG PO BEFORE BREAKFAST, #30 TAB 01/19/19 Pyridostigmine [place]* (Pyridostigmine [place]*) 60 Mg Tablet, 90 MG PO QID, TAB 01/19/19 Prednisone* (Prednisone*) 20 Mg Tab, 20 MG PO DAILY, TAB 01/19/19 Prednisone* (Prednisone*) 5 Mg Tab, 5 MG PO DAILY, TAB PLEASE SEE ATTACHED FOR DETAILED DIRECTIONS 01/19/19 Lisinopril* (Lisinopril*) 5 Mg Tablet, 5 MG PO DAILY, #30 TAB 01/19/19 Follow-up Plan 1. Follow up with your primary care physician in 1-2 weeks 2. Your blood pressure was well controlled off medications during your hospital stay. I recommend not continuing these medications until you see your primary care physician 3. Continue on all medications as prescribed 4. Our Neurologists recommend you follow up with [facility] neuromuscular clinic for ocular EMG 5. You will be given an outpatient physical therapy prescription which you can come to [facility] for outpatient physical therapy sessions as needed 6. If experiencing any concerning symptoms, please go to your nearest emergency department Primary Care Provider Not On Staff Doctor Time spent on discharge: > 30 minutes TERESA DAO MD Jan 31, 2019 15:29
== END 2019-01-31 20:50 | disposition home or self-care (01) | DRG 56 ==
LOC: E/R 17:24 → 6WM 01-20 02:09 → ICU 01-20 02:42 → 6WM 01-25 04:50
PROVIDERS: ADMIT Family Medicine; ATTEND Internal Medicine
PROC: 06HM33Z Insertion of Infusion Device into Right Femoral Vein, Percutaneous Approach (ICD-10-PCS; principal; 2019-01-21)
PROC: 6A551Z3 Pheresis of Plasma, Multiple (ICD-10-PCS; 2019-01-21)
DX: G70.01 Myasthenia gravis with (acute) exacerbation (principal); J96.02 Acute respiratory failure with hypercapnia; J96.01 Acute respiratory failure with hypoxia; R13.12 Dysphagia, oropharyngeal phase; E03.9 Hypothyroidism, unspecified; I10 Essential (primary) hypertension; R47.1 Dysarthria and anarthria; H53.2 Diplopia
CPT/HCPCS: 36415; 36514; 70450; 71045; 80048; 80053; 80307; 83735; 84100; 85025; 85049; 85384; 85610; 85670; 85730; 87081; 87340; 92507; 92526; 92610; 94150; 97161; J1566; J0610; J1100; J1459; J2920; J3480; J7030; J7042; J7070; J7512; J7517; P9045